=== PATIENT | male | born 1980 | race Caucasian/White ===

== ENCOUNTER 2023-11-24 01:42 | Inpatient (IN) | payer MEDICARE, OTHER, SELFPAY ==
[2023-11-23 17:51] VITALS: BP 123/86
[2023-11-23 18:00] VITALS: BP 135/92
[2023-11-23 19:00] VITALS: BP 117/85
[2023-11-23 19:03] LABS: % Basophils 0.3 % (0-2); % Immature Granulocytes 0.5 % (0-0.5); % Lymphocytes 4.4 % (20.5-51.1); % Monocytes 3.6 % (1.7-9.3); % Neutrophils 91.2 % (42.2-75.2); Absolute Lymphocytes 0.3 10^3/uL (1.2-3.4); Absolute Monocytes 0.3 10^3/uL (0.1-0.6); Hematocrit 30.4 % (39.0-52.0); Hemoglobin 10.3 g/dL (13.0-18.0); Mean Corp Hgb Conc. 33.9 g/dL (33.0-37.0); Mean Corpuscular Hgb 26.4 pg (27.0-31.0); Mean Corpuscular Volume 77.9 fL (80.0-94.0); Mean Platelet Volume 9.4 fL (7.4-10.4); Nucleated Red Blood Cells % 0 % (-); Platelet Count 271 10^3/uL (130-400); Red Cell Dist. Width 17.5 % (11.5-14.5); White Blood Cell Count 7.7 10^3/uL (4.8-10.8)
[2023-11-23 19:16] LABS: ALT (SGPT) 12 U/L (0-50); AST (SGOT) 18 U/L (17-59); Albumin 3.9 g/dl (3.5-5.0); Alkaline Phosphatase 59 U/L (38-126); Blood Urea Nitrogen 32 mg/dl (9-20); Calcium 8.9 mg/dl (8.4-10.2); Carbon Dioxide 27 mmol/L (22-30); Chloride 105 mmol/L (98-107); Glucose 134 mg/dl (70-99); Lipase 117 U/L (23-300); Potassium 3.9 mmol/L (3.5-5.1); Sodium 140 mmol/L (135-145); Total Bilirubin 0.9 mg/dl (0.2-1.3); Total Protein 7.9 g/dl (6.3-8.2); eGFR > 60.00
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
[2023-11-23] MEDS: ZOFRAN 4 MG IV ×2 (19:42→22:39)
[2023-11-23] MEDS: DILAUDID 1 MG IV ×2 (19:42→23:15)
[2023-11-23] MEDS: NSS 1000 IV ×2 (19:44→23:16)
[2023-11-23 20:00] VITALS: BP 117/84
[2023-11-23 20:38] LABS: Creatine Phosphokinase < 20 U/L (55-170)
[2023-11-23] MEDS: ZOSYN 50 IV (23:16)
[2023-11-23 23:30] LABS: Urine Albumin 2+ (Neg - Trace); Urine Bilirubin Negative (Negative); Urine Color Amber; Urine Glucose Negative (Negative); Urine Ketone Trace (Negative); Urine Leukocyte 2+ (Negative); Urine Nitrite Negative (Negative); Urine Occult Blood 4+ (Negative); Urine Urobilinogen Negative (Neg - 1+)
[2023-11-23 23:41] VITALS: BP 125/80
[2023-11-23 23:56] LABS: Urine Character Mucus (Clear)
[2023-11-23 23:59] LABS: Urine Amorphous Seen; Urine Bacteria Many (Negative); Urine Mucus Many; Urine Squamous Cell >30 /LPF (Few); Urine Triple Phosphate Crystal Seen; Urine White Cell >100 /HPF (0-5)
[2023-11-24] VITALS (8 sets, daily range): BP systolic 86–116; BP diastolic 48–76; BMI 18.9
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
[2023-11-24] MEDS: LR 1000 IV ×3 (03:01→16:59)
[2023-11-24] MEDS: DILAUDID 1 MG IV ×2 (03:35→08:44)
[2023-11-24] MEDS: ZOSYN 50 IV (03:55)
[2023-11-24 06:37] LABS: Hematocrit 25.2 % (39.0-52.0); Mean Corp Hgb Conc. 32.1 g/dL (33.0-37.0); Mean Corpuscular Hgb 26.1 pg (27.0-31.0); Mean Corpuscular Volume 81.3 fL (80.0-94.0); Mean Platelet Volume 9.5 fL (7.4-10.4); Platelet Count 225 10^3/uL (130-400); Red Cell Dist. Width 17.7 % (11.5-14.5); White Blood Cell Count 5.4 10^3/uL (4.8-10.8)
[2023-11-24 06:54] LABS: Hemoglobin 8.1 g/dL (13.0-18.0)
[2023-11-24 07:03] LABS: Blood Urea Nitrogen 30 mg/dl (9-20); Carbon Dioxide 24 mmol/L (22-30); Chloride 107 mmol/L (98-107); Estimated Creatinine Clearance 81 ml/min; Glucose 95 mg/dl (70-99); Potassium 3.6 mmol/L (3.5-5.1); Sodium 140 mmol/L (135-145); eGFR > 60.00
[2023-11-24] MEDS: PAXIL PO ×2 (08:29→09:39)
[2023-11-24] MEDS: SENOKOT PO ×2 (08:29→09:39)
[2023-11-24] MEDS: DOLOPHINE PO (08:29)
[2023-11-24] MEDS: VALIUM PO (08:30)
[2023-11-24] MEDS: MIRALAX PO ×2 (08:30→09:39)
[2023-11-24] MEDS: LIORESAL PO (08:30)
[2023-11-24] MEDS: COMPAZINE 5 MG IV (08:43)
[2023-11-24] MEDS: DOLOPHINE 20 MG PO ×3 (09:38→21:51)
[2023-11-24] MEDS: VALIUM 5 MG PO ×2 (09:38→20:16)
[2023-11-24] MEDS: LIORESAL 20 MG PO ×3 (09:39→21:51)
--- NOTE | 2023-11-24 09:41 | CM ---
Pt lives with his mother in a two story home with a ramp to enter. Pt has first floor set up. Pt has hospital bed with a trapeze, an electric wc, sliding board for transfers. Pt is able to get into wc independently, but needs assistance from
mother with lower body bathing and dressing. Pt has history of [facility] for homecare services and has been in [facility] in the past. Patient states that his mother is his primary caregiver and that he is open to going home with
[facility]. Patient PCP is Dr. Zaragoza and he uses the [facility] in [place]. Patient plan is to return home with family supports. CM will continue to follow for discharge planning needs.
Plan; home with MARCELINA; [facility] for referral and family supports; pending functional assessments.
--- NOTE | 2023-11-24 09:48 | W.PN.HOSP.TC ---
Today's Communication/Plan
-
advance diet as tolerated
cont aggressive bowel regimen
Assessment / Plan
Assessment / Plan
pt is a 43 year old male
Intractable N/V--Likely secondary to UTI +/- proctitis and constipation--Continue supportive care with IVFs, antiemetics, pain control, etc.
�
UTI--unlikely with urostomy AND squamous cells of > 30 on UA (i. e. not clean catch)--CT scan shows evidence of inflammatory changes throughout tract--IV abx with Zosyn for now to cover potential GI source as well--Follow urine culture
results--Routine ostomy care
Proctitis/stercoral colitis/Chronic Constipation/Colonic Inertia--Patient chronically dependent upon manual disimpaction--Disimpacted in the ED for small - moderate amount of stool--CRS disimpacted again this AM, apprec input--Has failed bowel
regimens in the past (Specifically, stool softeners only serve to make disimpaction more difficult)--IV abx with Zosyn as noted above for evidence of proctitis--Bowel regimen with MiraLax, Senna, etc--Follow for clinical results.
Chronic Pain Syndrome with Chronic Opioid Dependence (makes bowels more problematic)--Continue chronic pain med regimen without changes
Leukemia (CML per pt--sees onc at [facility])/Anemia of Chronic Disease--Initially dx about 3 years ago--Patient states that he has been treated solely with desatinib since then---Continue usual medication--Cell counts appear stable--HGB drop from 10 to 8
with hydration
DVT Prophylaxis:� Lovenox
Code Status:� Full
Anticipated Discharge: 24 - 48 hours
Subjective/Interval History
-
Date of Service: November 24, 2023
pt afraid to eat/drink due to n/v since Tuesday
Objective Data
-
Labs:
Laboratory Results
11/24/23
06:06
WBC 5.4
Hgb 8.1 L D
Hct 25.2 L
Plt Count 225
Sodium 140
Potassium 3.6
Chloride 107
Carbon Dioxide 24
BUN 30 H
Creatinine 1.0
Glucose 95
Calcium 8.0 L
Vital Signs:
max temp for 24 hours
11/23/23
17:51
Temp 99.7 F
Vital Signs
Temp Pulse Resp BP Pulse Ox
98.1 F 86 16 104/67 100
11/24/23 07:00 11/24/23 07:00 11/24/23 07:00 11/24/23 07:00 11/24/23 07:00
I&O
11/23/23 11/24/23 11/25/23
06:59 06:59 06:59
Intake Total 1120 / 1120
Output Total 600 / 600
Balance 520 / 520
Review of Systems
-
All other systems: Reviewed and negative
Physical Exam
-
General: Appears Chronically Ill
HEENT: Normocephalic and Atraumatic
Respiratory: Clear to Auscultation; Negative Wheezes or Rhonchi
Cardiac: Regular Rhythm and S1/S2; Negative Murmur
GI: Soft, Nontender, Nondistended and Normal Bowel Sounds
Genito-urinary: Other (urostomy tube)
Musculoskeletal: No Clubbing, No Cyanosis, No Edema and Other (chronic bilateral LE contractures)
Skin: Warm
Neuro: Awake
[2023-11-24] MEDS: ZOSYN 100 IV ×3 (11:28→23:49)
[2023-11-24] MEDS: SENOKOT 17.1999999999999993 MG PO ×2 (11:35→21:52)
[2023-11-24] MEDS: MIRALAX 17 GRAMS PO (11:35)
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
[2023-11-24] MEDS: LOVENOX 40 MG SC (17:00)
[2023-11-25] VITALS (12 sets, daily range): BP systolic 82–120; BP diastolic 48–74
--- NOTE | 2023-11-25 00:11 | PTCARENOTE ---
2300 vitals, pt BP 88/48 automatic. 86/54 manual. Recheck blood pressure an hour later, 86/51 automatic. Patient asymptomatic. Notified SUGAR SAMPLER. No new orders at this time. Pt resting comfortably in bed with call gil within reach.
[2023-11-25] MEDS: LR 1000 IV (00:53)
[2023-11-25] MEDS: ZOSYN 100 IV ×4 (05:40→23:54)
[2023-11-25 06:02] LABS: Hematocrit 22.7 % (39.0-52.0); Hemoglobin 7.3 g/dL (13.0-18.0); Mean Corp Hgb Conc. 32.2 g/dL (33.0-37.0); Mean Corpuscular Hgb 26.4 pg (27.0-31.0); Mean Corpuscular Volume 82.2 fL (80.0-94.0); Mean Platelet Volume 9.6 fL (7.4-10.4); Platelet Count 154 10^3/uL (130-400); Red Blood Cell Count 2.76 10^6/uL (4.70-6.10); Red Cell Dist. Width 17.7 % (11.5-14.5); White Blood Cell Count 4.1 10^3/uL (4.8-10.8)
[2023-11-25 06:26] LABS: Blood Urea Nitrogen 21 mg/dl (9-20); Calcium 7.5 mg/dl (8.4-10.2); Carbon Dioxide 23 mmol/L (22-30); Chloride 105 mmol/L (98-107); Estimated Creatinine Clearance 81 ml/min; Glucose 77 mg/dl (70-99); Magnesium 1.6 mg/dl (1.6-2.3); Potassium 3.3 mmol/L (3.5-5.1); Sodium 138 mmol/L (135-145); eGFR > 60.00
[2023-11-25] MEDS: MIRALAX 17 GRAMS PO (08:44)
[2023-11-25] MEDS: DOLOPHINE 20 MG PO (08:44)
[2023-11-25] MEDS: VALIUM 5 MG PO (08:45)
[2023-11-25] MEDS: LIORESAL 20 MG PO ×2 (08:45→21:49)
[2023-11-25] MEDS: PAXIL PO (09:01)
--- NOTE | 2023-11-25 09:16 | CM ---
Addendum entered by Jennifer Shukla 11/25/23 09:25:
referral to [email or web address] for follow up at discharge.
Original Note:
Patient seen at bedside, patient for transfusion per physician. Patient plan is to return home when medically stable and would like to have [facility]. CM will send referral, pending physician request. CM will continue to follow for discharge
planning needs.
Plan; home with VN; requesting [facility] if needed.
--- NOTE | 2023-11-25 09:24 | W.PN.HOSP.TC ---
Today's Communication/Plan
-
transfuse 2 units pRBC
replete K
d/c planning? Endpoint?
apprec GI/CRS
Assessment / Plan
Assessment / Plan
pt is a 43 year old male
Intractable N/V--Likely secondary to UTI +/- proctitis and constipation- antiemetics, pain control, etc.--tolerating diet
anemia of chronic disease--due to combination of CML leukemia and dilution--IVF stopped--transfuse 2 units pRBC
hypokalemia -- replete
�
UTI--unlikely with urostomy AND squamous cells of > 30 on UA (i. e. not clean catch)--CT scan shows evidence of inflammatory changes throughout tract--IV abx with Zosyn for now to cover potential GI source as well--Follow urine culture
results--Routine ostomy care
Proctitis/stercoral colitis/Chronic Constipation/Colonic Inertia--Patient chronically dependent upon manual disimpaction--Disimpacted in the ED for small - moderate amount of stool--CRS disimpacted again, apprec input--Has failed bowel regimens in
the past (Specifically, stool softeners only serve to make disimpaction more difficult)--IV abx with Zosyn as noted above for evidence of proctitis--Bowel regimen with MiraLax, Senna, etc--Follow for clinical results.
Chronic Pain Syndrome with Chronic Opioid Dependence (makes bowels more problematic)--Continue chronic pain med regimen without changes
Leukemia (CML per pt--sees onc at [facility])/Anemia of Chronic Disease--Initially dx about 3 years ago--Patient states that he has been treated solely with desatinib since then---Continue usual medication-
DVT Prophylaxis:� Lovenox
Code Status:� Full
Anticipated Discharge: 24 - 48 hours
Subjective/Interval History
-
Date of Service: November 25, 2023
pt stating that bowel regimen usually doesn't work and makes him feel sick which is why he needs disimpaction
Objective Data
-
Labs:
Laboratory Results
11/25/23
05:46
WBC 4.1 L
Hgb 7.3 L
Hct 22.7 L
Plt Count 154 D
Sodium 138
Potassium 3.3 L
Chloride 105
Carbon Dioxide 23
BUN 21 H
Creatinine 1.0
Glucose 77
Calcium 7.5 L
Vital Signs:
max temp for 24 hours
11/24/23
15:36
Temp 98.7 F
Vital Signs
Temp Pulse Resp BP Pulse Ox
97.8 F 69 18 87/51 97
11/25/23 08:12 11/25/23 08:12 11/25/23 08:12 11/25/23 08:12 11/25/23 08:12
I&O
11/24/23 11/25/23 11/26/23
06:59 06:59 06:59
Intake Total 1120 / 1120 3720 / 3720
Output Total 600 / 600 1475 / 1475
Balance 520 / 520 2245 / 2245
Review of Systems
-
All other systems: Reviewed and negative
Physical Exam
-
General: Well Developed, Well Nourished and No Apparent Distress
HEENT: Normocephalic and Atraumatic
Respiratory: Clear to Auscultation; Negative Wheezes or Rhonchi
Cardiac: Regular Rhythm and S1/S2; Negative Murmur
GI: Soft, Nontender, Nondistended and Normal Bowel Sounds
Musculoskeletal: No Clubbing, No Cyanosis, No Edema and Other (paraplegia)
Neuro: Awake
[2023-11-25] MEDS: KCL ELIXIR 40 MEQ PO (09:53)
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
[2023-11-25] MEDS: LR IV (09:59)
[2023-11-25] MEDS: COMPAZINE 5 MG IV ×2 (10:02→19:50)
--- NOTE | 2023-11-25 11:03 | PN.CDI ---
CDI
- -
CDI:
Physician Documentation Request
Admit Date: 11/24/23 01:42
Dear Doctor Kartik,
Please review the following and provide your response in the progress notes.
Clinical Indicators:
Height: 5 ft 10 inches
Weight: 131
BMI: 18.9
If possible, please provide an associated diagnosis related to the abnormal BMI, such as:
BMI < or = to 19
Underweight
Weight Loss
Cachectic
Anorexia
- BMI is not significant
- Other
Use of terms such as suspected, likely, concern for, or probable (associated with a specific diagnosis that is being evaluated, monitored, or treated as if it exists) are acceptable and can be coded in the inpatient setting, when documented at the
time of discharge.
Thank you,
Cassidy Ruth RN, BSN
CDI Specialist
tiger text
Please use your independent medical judgment in providing your response.
[2023-11-25] MEDS: ZANAFLEX 4 MG PO (13:15)
[2023-11-25] MEDS: LOVENOX SC (17:10)
[2023-11-25] MEDS: DOLOPHINE PO ×2 (17:15→21:47)
[2023-11-25] MEDS: LIORESAL PO (17:15)
--- NOTE | 2023-11-25 17:50 | W.PN.UPDATE ---
Update Note
Progress Note Update
I was called by patient's nurse that patient is becoming more drowsy and appearing more pale. Per patient's nurse, most recent systolic blood pressure in the 90s. Blood transfusion was delayed as there was mislabeling/nonlabeling when blood was
drawn by IV team, nurse called them again, and blood is expected to be given now.
On exam, patient is able to communicate fine, has good insight and judgment, explained to me what is going on, appears to be oriented, patient does appear somewhat pale.
I confirmed with nurse that blood will be given now as it is coming up from the lab right now.
Transfer to IMU in case blood pressure drops further and in case patient needs pressors; if stable can transfer back to medsurg/telemetry tomorrow.
[2023-11-25] MEDS: VALIUM PO ×2 (19:45→21:49)
[2023-11-25] MEDS: SENOKOT 17.1999999999999993 MG PO (21:49)
[2023-11-26] MEDS: DOLOPHINE 20 MG PO ×3 (00:14→22:42)
--- NOTE | 2023-11-26 01:49 | PTCARENOTE ---
Orders placed for IMU transfer prior to shift change due to delay in transfusion of blood products. Pt received 2 units of PRBC on this shift, tolerated will, reports significant improvement in overall wellbeing and mentation. Pt appears more awake
and alert, talking and joking with staff. Blood pressure stable thus far, ranging 100-120's systolic. D/w covering ORCHESTRATOR, upgrade order d/c'd to be replaced by a telemetry order, placed on tele.
[2023-11-26] MEDS: DILAUDID 1 MG IV ×2 (02:39→21:31)
[2023-11-26 03:05] VITALS: BP 126/74
[2023-11-26 04:11] VITALS: BP 126/74
[2023-11-26 05:47] LABS: Glucose - Point of Care 84 mg/dl (70-99)
[2023-11-26 05:55] LABS: Mean Corp Hgb Conc. 32.9 g/dL (33.0-37.0); Mean Corpuscular Hgb 27.4 pg (27.0-31.0); Mean Corpuscular Volume 83.1 fL (80.0-94.0); Mean Platelet Volume 9.9 fL (7.4-10.4); Platelet Count 174 10^3/uL (130-400); Red Blood Cell Count 4.09 10^6/uL (4.70-6.10); Red Cell Dist. Width 17.2 % (11.5-14.5); White Blood Cell Count 5.8 10^3/uL (4.8-10.8)
[2023-11-26 06:04] LABS: Hemoglobin 11.2 g/dL (13.0-18.0)
[2023-11-26] MEDS: NSS 500 IV (06:22)
[2023-11-26 06:26] LABS: ALT (SGPT) < 10 U/L (0-50); AST (SGOT) 18 U/L (17-59); Alkaline Phosphatase 39 U/L (38-126); Blood Urea Nitrogen 14 mg/dl (9-20); Calcium 7.6 mg/dl (8.4-10.2); Carbon Dioxide 27 mmol/L (22-30); Chloride 108 mmol/L (98-107); Estimated Creatinine Clearance 74 ml/min; Glucose 90 mg/dl (70-99); Magnesium 1.7 mg/dl (1.6-2.3); Potassium 3.4 mmol/L (3.5-5.1); Sodium 137 mmol/L (135-145); Total Bilirubin 1.5 mg/dl (0.2-1.3); Total Protein 6.1 g/dl (6.3-8.2); eGFR > 60.00
--- NOTE | 2023-11-26 06:27 | PTCARENOTE ---
Pt on the call gil, states he 'doesn't feel right'. When asked to elaborate, pt reports lightheadedness and mild HILTON. Pt appears more pale than previously noted, speaks slow and with his eyes closed, visibly uncomfortable, denies nausea, pain, SOB
or CP. BP 136/81, pulse ox 98% on RA, HR bradycardic at 55 on the monitor. Accuchek 84. D/w covering CONTENT ANALYST who responded immediately bedside to assess pt. 500cc bolus ordered and given, see DEC. Hgb resulted 11.2 after 2 units PRBC last PM.
--- NOTE | 2023-11-26 06:40 | W.PN.UPDATE ---
Update Note
Progress Note Update
Patient complained of dizziness, SBP in 90s, hr between 47- 60s. One time bolus of 500cc of normal saline. Will start the patient on maintenance IVF. Morning labs reviewed and electrolytes repleted as needed.
[2023-11-26 07:05] VITALS: BP 111/68
[2023-11-26] MEDS: CALCIUM GLUCONATE 100 IV (07:35)
[2023-11-26] MEDS: COMPAZINE 5 MG IV (08:34)
--- NOTE | 2023-11-26 08:39 | PTCARENOTE ---
pt refusing to take any oral meds due to feeling nausea and generally uwell. Compazine given Iv. Pt took tele monitor off and id refusing it to be put back on. Dr. Gary notified.
[2023-11-26] MEDS: ZOSYN 100 IV ×3 (08:50→17:21)
[2023-11-26] MEDS: VALIUM PO (10:01)
[2023-11-26] MEDS: MIRALAX PO (10:01)
[2023-11-26] MEDS: LIORESAL PO (10:01)
[2023-11-26] MEDS: NSS IV (10:01)
[2023-11-26] MEDS: PAXIL PO (10:01)
[2023-11-26] MEDS: DOLOPHINE PO (10:01)
--- NOTE | 2023-11-26 10:02 | PTCARENOTE ---
pt still refusing meds due to nausea even after compazine.
--- NOTE | 2023-11-26 10:26 | W.PN.HOSP.TC ---
Today's Communication/Plan
-
Eval anemia further - hemolysis panel, Hemetest stools
CW Abx
CW symptomatic tx for nausea today
Assessment / Plan
Assessment / Plan
pt is a 43 year old male
Intractable N/V--Likely secondary proctitis and constipation- antiemetics, pain control, etc.--was tolerating diet but nauseous this am. Afeb , no leukocytosis ,LFT apart from mild Bili elevation normal , and abdo benign.
CW symptomatic tx
CW zosyn for proctitis
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 Check Hemoccult testing of the stools. Check a reticulocyte count. Check hemolysis labs.
hypokalemia -- replete
�
UTI--unlikely with urostomy AND squamous cells of > 30 on UA (i. e. not clean catch)--CT scan shows evidence of inflammatory changes throughout tract--IV abx with Zosyn for now to cover potential GI source as well-- urine culture results shows
contamination--Routine ostomy care
Proctitis/stercoral colitis/Chronic Constipation/Colonic Inertia--Patient chronically dependent upon manual disimpaction--Disimpacted in the ED for small - moderate amount of stool--CRS disimpacted again, apprec input--Has failed bowel regimens in
the past (Specifically, stool softeners only serve to make disimpaction more difficult)--IV abx with Zosyn as noted above for evidence of proctitis--Bowel regimen with MiraLax, Senna, etc--Follow for clinical results.
Chronic Pain Syndrome with Chronic Opioid Dependence (makes bowels more problematic)--Continue chronic pain med regimen without changes
Leukemia (CML per pt--sees onc at [facility])/Anemia of Chronic Disease--Initially dx about 3 years ago--Patient states that he has been treated solely with desatinib since then---Continue usual medication
DVT Prophylaxis:� Lovenox
Code Status:� Full
Anticipated Discharge: 24 - 48 hours
Subjective/Interval History
-
Date of Service: November 26, 2023
Was not feeling well yesterday. He was feeling in generally' crappy'. He was also feeling lightheaded. He feels improved from that feeling after transfusion.
This morning is nauseous.
He did not have any bloody bowel movements yesterday. He states he was anemic in the past requiring transfusion but that was remote past. Denies history of GI bleeds.
He had something to eat yesterday with today's feeling nauseous. No abdominal pain. No bowel movement yet.
No fever or chills.
No shortness of breath.
Objective Data
-
Labs:
Laboratory Results
11/26/23
05:38
WBC 5.8
Hgb 11.2 L D
Hct 34.0 L
Plt Count 174
Sodium 137
Potassium 3.4 L
Chloride 108 H
Carbon Dioxide 27
BUN 14
Creatinine 1.1
Glucose 90
Calcium 7.6 L
Total Bilirubin 1.5 H
AST 18
ALT < 10
Alkaline Phosphatase 39
Vital Signs:
Vital Signs
Temp Pulse Resp BP Pulse Ox
98.7 F 58 12 111/68 97
11/26/23 07:05 11/26/23 07:05 11/26/23 07:05 11/26/23 07:05 11/26/23 07:05
I&O
11/25/23 11/26/23 11/27/23
06:59 06:59 06:59
Intake Total 3720 / 3720 1100 / 1100
Output Total 1475 / 1475 1450 / 1450
Balance 2245 / 2245 -350 / -350
Review of Systems
-
Constitutional: Denies Chills
EENT: Denies Sore Throat
Respiratory: Denies Cough
Physical Exam
-
General: No Apparent Distress
HEENT: Moist Mucous Membranes
Respiratory: Clear to Auscultation
Cardiac: Regular Rhythm and S1/S2; Negative Tachycardic
GI: Soft, Nontender, Nondistended, Normal Bowel Sounds and Ostomy
Neuro: AO x 3
Psych: Calm
Data Reviewed
-
Labs: Labs Reviewed by me
[2023-11-26 11:05] VITALS: BP 129/73
[2023-11-26 11:20] LABS: Iron 143 ug/dl (49-181); LDH 200 U/L (120-246)
[2023-11-26 11:46] LABS: Percent Saturation 71 % (20-50); Total Iron Binding Capacity 199 ug/dl (261-462)
[2023-11-26 13:04] LABS: Reticulocyte Count 2.9 % (0.4-2.8)
[2023-11-26 15:05] VITALS: BP 110/68
[2023-11-26] MEDS: LOVENOX 40 MG SC (17:21)
[2023-11-26] MEDS: LIORESAL 20 MG PO ×2 (17:21→21:06)
[2023-11-26] MEDS: VALIUM 5 MG PO (20:26)
[2023-11-26] MEDS: SENOKOT 17.1999999999999993 MG PO (21:05)
[2023-11-26 23:20] VITALS: BP 114/67
[2023-11-27] MEDS: ZOSYN 100 IV ×2 (01:00→05:24)
[2023-11-27] MEDS: NSS 1000 IV (02:48)
[2023-11-27] MEDS: DILAUDID 1 MG IV (04:13)
[2023-11-27 07:05] VITALS: BP 118/74
[2023-11-27] MEDS: DOLOPHINE 20 MG PO ×2 (08:05→17:09)
[2023-11-27] MEDS: VALIUM 5 MG PO (08:05)
[2023-11-27] MEDS: PAXIL 20 MG PO (08:05)
[2023-11-27] MEDS: MIRALAX 17 GRAMS PO (08:05)
[2023-11-27] MEDS: LIORESAL 20 MG PO ×2 (08:05→17:09)
[2023-11-27 08:46] LABS: Hematocrit 33.1 % (39.0-52.0); Hemoglobin 10.9 g/dL (13.0-18.0); Mean Corp Hgb Conc. 32.9 g/dL (33.0-37.0); Mean Corpuscular Hgb 27.3 pg (27.0-31.0); Mean Corpuscular Volume 82.8 fL (80.0-94.0); Mean Platelet Volume 9.8 fL (7.4-10.4); Platelet Count 163 10^3/uL (130-400); Red Cell Dist. Width 17.7 % (11.5-14.5); White Blood Cell Count 4.9 10^3/uL (4.8-10.8)
[2023-11-27 09:07] LABS: ALT (SGPT) < 10 U/L (0-50); AST (SGOT) 14 U/L (17-59); Albumin 2.6 g/dl (3.5-5.0); Alkaline Phosphatase 36 U/L (38-126); Blood Urea Nitrogen 10 mg/dl (9-20); Calcium 7.1 mg/dl (8.4-10.2); Carbon Dioxide 26 mmol/L (22-30); Chloride 109 mmol/L (98-107); Estimated Creatinine Clearance 81 ml/min; Glucose 76 mg/dl (70-99); Potassium 3.2 mmol/L (3.5-5.1); Sodium 138 mmol/L (135-145); Total Bilirubin 1.1 mg/dl (0.2-1.3); Total Protein 5.4 g/dl (6.3-8.2); eGFR > 60.00
--- NOTE | 2023-11-27 10:39 | W.PN.HOSP.TC ---
Today's Communication/Plan
-
d/c
Assessment / Plan
Assessment / Plan
pt is a 43 year old male
Intractable N/V--Likely secondary proctitis and constipation- antiemetics, pain control, etc.--tolerating diet--Afeb , no leukocytosis ,LFT apart from mild Bili elevation normal zosyn to augmentin
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 Check Hemoccult testing of the stools. Check a reticulocyte count. Check hemolysis labs--will need to
follow up with outpt heme onc
hypokalemia -- replete
�
UTI--unlikely with urostomy AND squamous cells of > 30 on UA (i. e. not clean catch)--CT scan shows evidence of inflammatory changes throughout tract--IV abx with Zosyn for now to cover potential GI source as well-- urine culture results shows
contamination--Routine ostomy care
Proctitis/stercoral colitis/Chronic Constipation/Colonic Inertia--Patient chronically dependent upon manual disimpaction--Disimpacted in the ED for small - moderate amount of stool--CRS disimpacted again, apprec input--Has failed bowel regimens in
the past (Specifically, stool softeners only serve to make disimpaction more difficult)--IV abx with Zosyn to augmentin--Bowel regimen with MiraLax, Senna, etc
Chronic Pain Syndrome with Chronic Opioid Dependence (makes bowels more problematic)--Continue chronic pain med regimen without changes
Leukemia (CML per pt--sees onc at [facility])/Anemia of Chronic Disease--Initially dx about 3 years ago--Patient states that he has been treated solely with desatinib since then (can contribute to anemia?)---Continue usual medication
BMI is not accurate or significant with paraplegia and leg contractures as he is NOT 5' 10' tall
DVT Prophylaxis:� Lovenox
Code Status:� Full
Anticipated Discharge: Today
Subjective/Interval History
-
Date of Service: November 27, 2023
pt pooping without suppository--thinks he is staying until Tuesday
Objective Data
-
Labs:
Laboratory Results
11/27/23
07:59
WBC 4.9
Hgb 10.9 L
Hct 33.1 L
Plt Count 163
Sodium 138
Potassium 3.2 L
Chloride 109 H
Carbon Dioxide 26
BUN 10
Creatinine 1.0
Glucose 76
Calcium 7.1 L
Total Bilirubin 1.1
AST 14 L
ALT < 10
Alkaline Phosphatase 36 L
Vital Signs:
max temp for 24 hours
11/26/23
15:05
Temp 98.7 F
Vital Signs
Temp Pulse Resp BP Pulse Ox
97.7 F 70 16 118/74 97
11/27/23 07:05 11/27/23 07:05 11/27/23 07:05 11/27/23 07:05 11/27/23 07:05
I&O
11/26/23 11/27/23 11/28/23
06:59 06:59 06:59
Intake Total 1100 / 1100 3620 / 3620
Output Total 1450 / 1450 1900 / 1900
Balance -350 / -350 1720 / 1720
Review of Systems
-
All other systems: Reviewed and negative
Physical Exam
-
General: Well Developed, Well Nourished and No Apparent Distress
HEENT: Normocephalic and Atraumatic; Negative Oxygen
Respiratory: Clear to Auscultation; Negative Wheezes or Rhonchi
Cardiac: Regular Rhythm and S1/S2; Negative Murmur
GI: Soft, Nontender, Nondistended and Normal Bowel Sounds
Musculoskeletal: No Clubbing, No Cyanosis, No Edema and Other (legs contracted--not 5'10' as documented--with contractures possibly 5'6')
Neuro: Awake
[2023-11-27] MEDS: AUGMENTIN 500 MG/125 MG 1 TABLET PO (12:12)
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
[2023-11-27] MEDS: COMPAZINE 5 MG IV (13:32)
--- NOTE | 2023-11-27 13:35 | CM ---
Patient has been cleared for discharge today, patient to return to home with his mother, nurse outreach case manager spoke with patient's mother and she is working till 2pm, so transport will be set up after 2pm, patient is agreeable to [facility] visiting Nurses,
referral sent to [facility].
Home by ambulance
[facility]
[phone]
[2023-11-27 15:00] VITALS: BP 123/75
[2023-11-27] MEDS: LOVENOX 40 MG SC (17:09)
[2023-11-28 19:57] LABS: Haptoglobin 81 mg/dL (30-200)
== END 2023-11-27 19:22 | disposition home health service (06) | DRG 394 ==
LOC: 2 NORTH 01:42
PROVIDERS: Emergency Medicine; Internal Medicine; Physician Assistant; ADMITTING PHYSICIAN Hospitalist; ATTENDING PHYSICIAN Internal Medicine; CONSULT PHYSICIAN Internal Medicine Gastroenterology; CONSULT PHYSICIAN Surgery; EMERGENCY PHYSICIAN Emergency Medicine
PROC: 30233N1 Transfusion of Nonautologous Red Blood Cells into Peripheral Vein, Percutaneous Approach (ICD-10-PCS; 2023-11-25)
DX: K62.89 Other specified diseases of anus and rectum (principal); C92.10 Chronic myeloid leukemia, BCR/ABL-positive, not having achieved remission; G82.20 Paraplegia, unspecified; N39.0 Urinary tract infection, site not specified; F11.20 Opioid dependence, uncomplicated; N13.6 Pyonephrosis; K56.41 Fecal impaction; K52.89 Other specified noninfective gastroenteritis and colitis; E87.6 Hypokalemia; G89.4 Chronic pain syndrome; D63.0 Anemia in neoplastic disease
CPT/HCPCS: 74177; 80048; 80053; 81003; 81015; 82550; 82728; 82962; 83010; 83540; 83550; 83615; 83690; 83735; 85025; 85027; 85045; 86850; 86900; 86901; 86920; 87086; 96361; 96365; 96375; 96376; 99285; P9016; Q9967

== ENCOUNTER 2024-01-31 14:25 | Observation (INO) | payer MEDICARE, OTHER, SELFPAY ==
[2024-01-31] VITALS (31 sets, daily range): BP systolic 90–140; BP diastolic 48–98; BMI 19.5
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
[2024-01-31] MEDS: NSS 1000 IV (07:00)
[2024-01-31] MEDS: ZOFRAN 4 MG IV ×3 (07:01→20:47)
[2024-01-31 07:12] LABS: % Basophils 0.4 % (0-2); % Eosinophils 0.1 % (0-6); % Immature Granulocytes 0.4 % (0-0.5); % Monocytes 4.1 % (1.7-9.3); Absolute Lymphocytes 0.6 10^3/uL (1.2-3.4); Absolute Monocytes 0.4 10^3/uL (0.1-0.6); Absolute Neutrophils 8.8 10^3/uL (1.4-6.5); Hematocrit 33.5 % (39.0-52.0); Hemoglobin 11.5 g/dL (13.0-18.0); Mean Corp Hgb Conc. 34.3 g/dL (33.0-37.0); Mean Corpuscular Volume 81.5 fL (80.0-94.0); Mean Platelet Volume 9.7 fL (7.4-10.4); Nucleated Red Blood Cells % 0 % (-); Platelet Count 253 10^3/uL (130-400); Red Blood Cell Count 4.11 10^6/uL (4.70-6.10); Red Cell Dist. Width 16.9 % (11.5-14.5); White Blood Cell Count 9.9 10^3/uL (4.8-10.8)
[2024-01-31] MEDS: DILAUDID 2 MG IV ×3 (07:21→20:47)
[2024-01-31 07:30] LABS: ALT (SGPT) 13 U/L (0-50); AST (SGOT) 22 U/L (17-59); Albumin 4.5 g/dl (3.5-5.0); Alkaline Phosphatase 65 U/L (38-126); Blood Urea Nitrogen 30 mg/dl (9-20); Calcium 9.1 mg/dl (8.4-10.2); Carbon Dioxide 24 mmol/L (22-30); Chloride 108 mmol/L (98-107); Estimated Creatinine Clearance 93 ml/min; Glucose 137 mg/dl (70-99); Lipase 126 U/L (23-300); Potassium 3.9 mmol/L (3.5-5.1); Sodium 142 mmol/L (135-145); Total Bilirubin 1.5 mg/dl (0.2-1.3); Total Protein 8.4 g/dl (6.3-8.2); eGFR > 60.00
[2024-01-31] MEDS: RELISTOR 8 MG SC (12:06)
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
[2024-01-31] MEDS: DULCOLAX 10 MG RECTAL (15:40)
[2024-01-31] MEDS: COMPAZINE 10 MG IV (15:45)
--- NOTE | 2024-01-31 20:00 | W.PN.UPDATE ---
Update Note
Progress Note Update
1999 notified by nurse that pt unable to take po meds due to n/v
will change dilaudid to iv for now and increase compazine freq
[2024-01-31] MEDS: LIORESAL PO (20:19)
[2024-01-31] MEDS: DOLOPHINE PO (20:19)
[2024-01-31] MEDS: ZANAFLEX PO ×2 (20:21→22:57)
[2024-01-31] MEDS: LOVENOX 40 MG SC (20:46)
[2024-01-31] MEDS: VALIUM PO (21:02)
[2024-01-31] MEDS: PAXIL PO (21:02)
[2024-01-31] MEDS: LIORESAL 20 MG PO (22:57)
[2024-01-31] MEDS: DOLOPHINE 20 MG PO (22:57)
--- NOTE | 2024-01-31 23:44 | PTCARENOTE ---
Patient arrived from the ED via stretcher at approximately 1900. Patient pulled over from stretcher to bed w/ no event. Patient AAOx3, drowsy. VSS as documented. Assessment as documented. Patient oriented to room. Bed in lowest position. Call gil
within reach.
[2024-02-01] MEDS: ZANAFLEX 4 MG PO ×4 (00:27→21:06)
[2024-02-01 06:36] LABS: Hemoglobin 10.6 g/dL (13.0-18.0); Mean Corp Hgb Conc. 32.1 g/dL (33.0-37.0); Mean Corpuscular Hgb 27.6 pg (27.0-31.0); Mean Corpuscular Volume 85.9 fL (80.0-94.0); Mean Platelet Volume 9.8 fL (7.4-10.4); Platelet Count 246 10^3/uL (130-400); Red Blood Cell Count 3.84 10^6/uL (4.70-6.10); Red Cell Dist. Width 17.6 % (11.5-14.5); White Blood Cell Count 9.1 10^3/uL (4.8-10.8)
[2024-02-01 07:03] LABS: Blood Urea Nitrogen 40 mg/dl (9-20); Calcium 8.5 mg/dl (8.4-10.2); Carbon Dioxide 23 mmol/L (22-30); Chloride 108 mmol/L (98-107); Estimated Creatinine Clearance 70 ml/min; Glucose 129 mg/dl (70-99); Magnesium 2.1 mg/dl (1.6-2.3); Potassium 3.4 mmol/L (3.5-5.1); Sodium 141 mmol/L (135-145); eGFR > 60.00
[2024-02-01 07:40] VITALS: BP 111/78
[2024-02-01] MEDS: DILAUDID 2 MG IV (08:02)
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
[2024-02-01] MEDS: DOLOPHINE 20 MG PO ×3 (09:33→21:06)
[2024-02-01] MEDS: ZANAFLEX PO (09:33)
[2024-02-01] MEDS: KCL 40 MEQ PO (09:33)
[2024-02-01] MEDS: VALIUM 5 MG PO ×2 (09:34→20:28)
[2024-02-01] MEDS: PAXIL PO (09:34)
[2024-02-01] MEDS: MIRALAX 17 GRAMS PO (09:35)
[2024-02-01] MEDS: DULCOLAX 10 MG RECTAL (09:35)
[2024-02-01] MEDS: LIORESAL 20 MG PO ×3 (09:41→21:06)
[2024-02-01 15:50] VITALS: BP 90/59
--- NOTE | 2024-02-01 15:53 | CM ---
Reviewed the chart notes and spoke with the patient at the bedside. The patient is being admitted under observational status. The [facility] letter was provided and explained. The patient had no questions with regards to the letter.
The patient resides with his mother in a two story home with a portable ramp to enter. The patient resides on the first level. Patient has a hospital bed, trapeze, electric wheelchair, and sliding board. The patient has had [facility] in the past
and been to [facility] and [facility]. The patient confirmed her pharmacy of choice is the [facility]. CM continues to be available to patient/family and is monitoring medical plan for needs at discharge.
Plan: Discharge to home with no anticipated needs being identified at this time.
--- NOTE | 2024-02-01 16:00 | PTCARENOTE ---
Addendum entered by Araceli Rainse RN 02/01/24 18:46:
Repeat BP taken at 1800 78/48 RUE HR 102. Patient drowsy but states no complaints at this time. MD made aware, 500 ml NSS bolus ordered. MD made aware of cloudy nery urine with sediment output from urostomy, no new orders at this time.
Original Note:
Patient's BP at 1550 89/55, repeat 90/59 HR 70 in RUE. Patient states he 'typically runs low this time of day.' MD made aware of BP and of scheduled methadone, baclofen, and zanaflex due at 1600, no new orders at this time.
[2024-02-01] MEDS: LOVENOX 40 MG SC (17:13)
[2024-02-01] MEDS: NSS 500 IV (18:17)
[2024-02-01 19:33] VITALS: BP 88/56
[2024-02-01] MEDS: NSS 1000 IV (21:08)
[2024-02-01 23:44] VITALS: BP 101/75
[2024-02-02 05:52] LABS: Hematocrit 26.8 % (39.0-52.0); Hemoglobin 8.8 g/dL (13.0-18.0); Mean Corp Hgb Conc. 32.8 g/dL (33.0-37.0); Mean Corpuscular Hgb 27.9 pg (27.0-31.0); Mean Corpuscular Volume 85.1 fL (80.0-94.0); Mean Platelet Volume 9.5 fL (7.4-10.4); Platelet Count 164 10^3/uL (130-400); Red Blood Cell Count 3.15 10^6/uL (4.70-6.10); Red Cell Dist. Width 17.8 % (11.5-14.5); White Blood Cell Count 4.9 10^3/uL (4.8-10.8)
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
[2024-02-02 07:41] LABS: Blood Urea Nitrogen 30 mg/dl (9-20); Calcium 7.6 mg/dl (8.4-10.2); Carbon Dioxide 20 mmol/L (22-30); Chloride 111 mmol/L (98-107); Estimated Creatinine Clearance 93 ml/min; Glucose 92 mg/dl (70-99); Potassium 3.7 mmol/L (3.5-5.1); Sodium 135 mmol/L (135-145); eGFR > 60.00
[2024-02-02 07:52] VITALS: BP 95/58
[2024-02-02] MEDS: DOLOPHINE 20 MG PO ×2 (08:41→16:19)
[2024-02-02] MEDS: ZANAFLEX 4 MG PO ×2 (08:41→16:19)
[2024-02-02] MEDS: LIORESAL 20 MG PO ×2 (08:41→16:19)
[2024-02-02] MEDS: MIRALAX 17 GRAMS PO (08:41)
[2024-02-02] MEDS: VALIUM 5 MG PO (08:41)
[2024-02-02] MEDS: PAXIL 20 MG PO (08:42)
[2024-02-02] MEDS: DILAUDID 2 MG IV (08:42)
[2024-02-02] MEDS: DULCOLAX 10 MG RECTAL (08:42)
[2024-02-02] MEDS: TYLENOL 650 MG PO (08:51)
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
[2024-02-02] MEDS: FIORICET 2 TAB PO (10:26)
[2024-02-02] MEDS: COMPAZINE 10 MG IV (11:29)
--- NOTE | 2024-02-02 14:00 | PTCARENOTE ---
pt received prn tylenol this AM for headache. verbalized neck pain and per DEC assessment received prn dilaudid. see DEC for proper charting. pt also verbalizing nausea this AM, patient received prn compazine. pt continued to have headache. MD made
aware and acetaminophen/caffeine pill was given. pt stated that that seemed to help his headache. no concerns at this time. pt scheduled for ambulance pickup at 1630
--- NOTE | 2024-02-02 14:33 | CM ---
Reviewed the chart notes. The patient is being discharged to home today via ambulance. CM continues to be available to patient/family and is monitoring medical plan for needs at discharge.
Plan: Discharge to home today with no additional needs being identified at this time.
Plan: Discharge to home.
Medical and transport forms on chart.
[2024-02-02 15:07] VITALS: BP 103/54
== END 2024-02-02 16:31 | disposition home or self-care (01) ==
LOC: 2 NORTH 14:25
PROVIDERS: Physician Assistant Medical; ADMITTING PHYSICIAN Family Medicine; EMERGENCY PHYSICIAN Emergency Medicine; FAMILY PHYSICIAN Family Medicine
DX: K59.09 Other constipation (principal); R10.9 Unspecified abdominal pain; R11.2 Nausea with vomiting, unspecified; I95.9 Hypotension, unspecified; G89.4 Chronic pain syndrome; F11.20 Opioid dependence, uncomplicated; D63.8 Anemia in other chronic diseases classified elsewhere; C92.10 Chronic myeloid leukemia, BCR/ABL-positive, not having achieved remission; F32.A Depression, unspecified; K80.20 Calculus of gallbladder without cholecystitis without obstruction; N31.9 Neuromuscular dysfunction of bladder, unspecified; G82.20 Paraplegia, unspecified; Z98.1 Arthrodesis status; Z87.440 Personal history of urinary (tract) infections; Z88.1 Allergy status to other antibiotic agents
CPT/HCPCS: 74177; 80048; 80053; 83690; 83735; 85025; 85027; 93005; 96361; 96372; 96374; 96375; 96376; 99285; G0378; Q9967

== ENCOUNTER 2024-02-05 01:09 | Emergency (ER) | payer MEDICARE, OTHER, SELFPAY ==
[2024-02-05] VITALS (8 sets, daily range): BP systolic 109–131; BP diastolic 67–93
[2024-02-05 01:39] LABS: % Basophils 0.3 % (0-2); % Eosinophils 0.4 % (0-6); % Immature Granulocytes 0.3 % (0-0.5); % Lymphocytes 6.1 % (20.5-51.1); % Monocytes 4.8 % (1.7-9.3); % Neutrophils 88.1 % (42.2-75.2); Absolute Lymphocytes 0.5 10^3/uL (1.2-3.4); Absolute Monocytes 0.4 10^3/uL (0.1-0.6); Hematocrit 34.7 % (39.0-52.0); Hemoglobin 11.4 g/dL (13.0-18.0); Mean Corp Hgb Conc. 32.9 g/dL (33.0-37.0); Mean Corpuscular Hgb 27.8 pg (27.0-31.0); Mean Corpuscular Volume 84.6 fL (80.0-94.0); Mean Platelet Volume 9.1 fL (7.4-10.4); Nucleated Red Blood Cells % 0 % (-); Platelet Count 234 10^3/uL (130-400); Red Cell Dist. Width 17.4 % (11.5-14.5); White Blood Cell Count 7.9 10^3/uL (4.8-10.8)
[2024-02-05] MEDS: DILAUDID 1 MG IV (02:00)
[2024-02-05] MEDS: ZOFRAN 4 MG IV (02:00)
[2024-02-05] MEDS: NSS 1000 IV (02:01)
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
[2024-02-05 02:24] LABS: AST (SGOT) 20 U/L (17-59); Albumin 3.7 g/dl (3.5-5.0); Blood Urea Nitrogen 15 mg/dl (9-20); Carbon Dioxide 27 mmol/L (22-30); Chloride 106 mmol/L (98-107); Glucose 121 mg/dl (70-99); Total Bilirubin 0.9 mg/dl (0.2-1.3); Total Protein 6.8 g/dl (6.3-8.2); eGFR > 60.00
[2024-02-05 02:31] LABS: ALT (SGPT) 13 U/L (0-50); Alkaline Phosphatase 65 U/L (38-126); Calcium 8.9 mg/dl (8.4-10.2); Sodium 140 mmol/L (135-145)
[2024-02-05 02:52] LABS: Potassium 3.4 mmol/L (3.5-5.1)
[2024-02-05] MEDS: REGLAN 10 MG IV (03:47)
[2024-02-05] MEDS: DILAUDID 4 MG PO (05:27)
== END 2024-02-05 08:45 | disposition home or self-care (01) ==
LOC: EMR 01:09
PROVIDERS: EMERGENCY PHYSICIAN Emergency Medicine; FAMILY PHYSICIAN Family Medicine
DX: R11.2 Nausea with vomiting, unspecified (principal); K59.09 Other constipation; R14.0 Abdominal distension (gaseous); G82.20 Paraplegia, unspecified; D63.8 Anemia in other chronic diseases classified elsewhere; N31.9 Neuromuscular dysfunction of bladder, unspecified; K52.89 Other specified noninfective gastroenteritis and colitis; G89.4 Chronic pain syndrome; Z85.6 Personal history of leukemia; Z79.891 Long term (current) use of opiate analgesic; Z98.1 Arthrodesis status; Z88.1 Allergy status to other antibiotic agents
CPT/HCPCS: 99284; 96374; 96375 ×3; 96361 ×2; 74022; 80053; 85025

== ENCOUNTER 2024-02-20 13:52 | Inpatient (IN) | payer MEDICARE, OTHER, SELFPAY ==
[2024-02-20] VITALS (16 sets, daily range): BP systolic 95–189; BP diastolic 66–138
[2024-02-20] MEDS: ZOFRAN 4 MG IV ×4 (07:35→18:04)
[2024-02-20 07:40] LABS: % Basophils 0.5 % (0-2); % Eosinophils 1.2 % (0-6); % Immature Granulocytes 0.3 % (0-0.5); % Lymphocytes 9.3 % (20.5-51.1); % Monocytes 3.4 % (1.7-9.3); % Neutrophils 85.3 % (42.2-75.2); Absolute Eosinophils 0.1 10^3/uL (0-0.7); Absolute Lymphocytes 0.7 10^3/uL (1.2-3.4); Absolute Monocytes 0.3 10^3/uL (0.1-0.6); Absolute Neutrophils 6.3 10^3/uL (1.4-6.5); Hemoglobin 11.7 g/dL (13.0-18.0); Mean Corp Hgb Conc. 34.4 g/dL (33.0-37.0); Mean Corpuscular Hgb 27.9 pg (27.0-31.0); Mean Platelet Volume 9.6 fL (7.4-10.4); Nucleated Red Blood Cells % 0 % (-); Platelet Count 206 10^3/uL (130-400); Red Cell Dist. Width 15.9 % (11.5-14.5); White Blood Cell Count 7.3 10^3/uL (4.8-10.8)
[2024-02-20] MEDS: DILAUDID 1 MG IV ×3 (07:42→18:05)
[2024-02-20] MEDS: NSS 1000 IV ×2 (07:43→18:16)
[2024-02-20 08:02] LABS: Lactic Acid 0.5 mmol/L (0.7-2.0)
[2024-02-20 08:03] LABS: ALT (SGPT) < 10 U/L (0-50); AST (SGOT) 18 U/L (17-59); Albumin 3.9 g/dl (3.5-5.0); Alkaline Phosphatase 63 U/L (38-126); Blood Urea Nitrogen 19 mg/dl (9-20); Calcium 8.9 mg/dl (8.4-10.2); Carbon Dioxide 28 mmol/L (22-30); Chloride 104 mmol/L (98-107); Glucose 119 mg/dl (70-99); Lipase 146 U/L (23-300); Potassium 3.7 mmol/L (3.5-5.1); Sodium 139 mmol/L (135-145); Total Bilirubin 1.3 mg/dl (0.2-1.3); Total Protein 7.3 g/dl (6.3-8.2); eGFR > 60.00
[2024-02-20] MEDS: REGLAN 10 MG IV (09:54)
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
[2024-02-20 13:41] LABS: Urine Albumin 2+ (Neg - Trace); Urine Bilirubin Negative (Negative); Urine Character Very Cloudy (Clear); Urine Glucose Negative (Negative); Urine Ketone Trace (Negative); Urine Leukocyte 2+ (Negative); Urine Nitrite Negative (Negative); Urine Occult Blood 4+ (Negative); Urine Urobilinogen Negative (Neg - 1+)
[2024-02-20 13:42] LABS: Urine Color Yellow
[2024-02-20 14:16] LABS: Urine Mucus Many; Urine Red Blood Cell 30-40 /HPF (0-2); Urine Triple Phosphate Crystal Seen; Urine White Cell >100 /HPF (0-5)
[2024-02-20 14:18] LABS: Urine Amorphous Seen; Urine Bacteria Few (Negative)
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
[2024-02-20 15:51] LABS: Amphetamines Negative (Negative)
[2024-02-20 15:52] LABS: Barbiturates Negative (Negative); Benzodiazepines Positive (Negative); Buprenorphine Negative (Negative); Cocaine Negative (Negative); Marijuana Negative (Negative); Methadone Negative (Negative); Methamphetamines Negative (Negative); Opiates Positive (Negative); Phencyclidine Negative (Negative); Tricyclic Antidepressants Negative (Negative)
[2024-02-20 16:00] LABS: Fentanyl, Urine Negative (Negative)
[2024-02-20] MEDS: STERILE WATER FOR INJECTION 10 ML IV ×2 (18:04→23:49)
[2024-02-20] MEDS: MERREM 500 MG IV ×2 (18:04→23:49)
[2024-02-20] MEDS: LOVENOX 40 MG SC (18:05)
--- NOTE | 2024-02-20 19:19 | PTCARENOTE ---
During change of shift report, pt's hospital monitor alarming for >150BPM. Vitals assessed, BP 130/78, 98.4F orally, 99% SaO2 on room air. Pt offers moderate pain complaint after PRN Dilaudid administration, states PRN Zofran was effective.
DINESH Pike notified, instructed to monitor and keep updating with any changes. Call gil within reach.
[2024-02-20] MEDS: LIORESAL PO (19:48)
[2024-02-20] MEDS: ZANAFLEX PO ×2 (19:48→23:55)
[2024-02-20] MEDS: DOLOPHINE PO (19:48)
[2024-02-20] MEDS: DOLOPHINE 20 MG PO (21:38)
[2024-02-20] MEDS: VALIUM PO (22:54)
[2024-02-20] MEDS: LIORESAL 20 MG PO (22:56)
[2024-02-21 03:23] VITALS: BP 95/61
[2024-02-21] MEDS: NSS 1000 IV ×3 (04:07→21:15)
[2024-02-21 06:00] VITALS: BMI 19.9
--- NOTE | 2024-02-21 06:01 | PTCARENOTE ---
Pt refused several PO medications last night d/t intermittent nausea, accepted Methadone and Baclofen. DINESH Pike notified.
HR stabilized at approx 2300 between 90-110s, DINESH Pike updated throughout shift. Pt appears to be resting comfortably at this time, respirations even and non-labored. Call gil within reach.
Pt has been refusing Q2Ts overnight, states that if he 'has a bar, it's easier to shift weight.' Located trapeze bar on unit, awaiting in room to be placed on bed once pt is awake.
[2024-02-21] MEDS: STERILE WATER FOR INJECTION 10 ML IV ×3 (06:12→17:16)
[2024-02-21] MEDS: MERREM 500 MG IV ×3 (06:12→17:15)
[2024-02-21 08:00] LABS: Hematocrit 28.1 % (39.0-52.0); Mean Corp Hgb Conc. 33.1 g/dL (33.0-37.0); Mean Corpuscular Hgb 27.9 pg (27.0-31.0); Mean Corpuscular Volume 84.4 fL (80.0-94.0); Mean Platelet Volume 9.4 fL (7.4-10.4); Platelet Count 171 10^3/uL (130-400); Red Blood Cell Count 3.33 10^6/uL (4.70-6.10); Red Cell Dist. Width 16.5 % (11.5-14.5); White Blood Cell Count 4.5 10^3/uL (4.8-10.8)
[2024-02-21 08:03] VITALS: BP 103/60
[2024-02-21] MEDS: DOLOPHINE 20 MG PO ×3 (08:17→21:59)
[2024-02-21] MEDS: ZANAFLEX 4 MG PO ×3 (08:17→21:59)
[2024-02-21 08:18] LABS: Hemoglobin 9.3 g/dL (13.0-18.0)
[2024-02-21 08:36] LABS: Blood Urea Nitrogen 16 mg/dl (9-20); Calcium 8.2 mg/dl (8.4-10.2); Carbon Dioxide 26 mmol/L (22-30); Chloride 108 mmol/L (98-107); Estimated Creatinine Clearance 107 ml/min; Glucose 104 mg/dl (70-99); Potassium 3.7 mmol/L (3.5-5.1); Sodium 138 mmol/L (135-145); eGFR > 60.00
[2024-02-21 11:24] VITALS: BP 83/43
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
[2024-02-21] MEDS: VALIUM 5 MG PO ×2 (12:22→21:58)
[2024-02-21] MEDS: LIORESAL PO (12:22)
[2024-02-21] MEDS: PAXIL 20 MG PO (12:22)
[2024-02-21] MEDS: DULCOLAX 10 MG RECTAL (12:22)
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
[2024-02-21] MEDS: LIORESAL 20 MG PO ×2 (15:32→21:58)
[2024-02-21 16:20] VITALS: BP 97/57
[2024-02-21] MEDS: LOVENOX 40 MG SC (17:15)
[2024-02-21 19:59] VITALS: BP 82/44
[2024-02-21 23:10] VITALS: BP 91/57
--- NOTE | 2024-02-21 23:50 | PTCARENOTE ---
Addendum entered by Blanca Stafford RN 02/22/24 06:55:
Recheck BP @ 2310 91/57. At 0350 BP was 85/53. DINESH updated, new orders for 500 mL bolus of NSS. Currently administering. Dayshift nurse given report. Will recheck BP.
Original Note:
Pt BP @ 2000 was 82/44. Pt hypotensive throughout the day. Pt is asymtopatic and does have a hx of hypotension but explained he is not usually this low. SPEECH PATHOLOGY TEACHER notified, new orders for 1000 mL bolus of NSS. Currently administering. Will recheck BP.
Call gil within reach.
[2024-02-22] MEDS: STERILE WATER FOR INJECTION 10 ML IV ×3 (00:15→12:15)
[2024-02-22] MEDS: MERREM 500 MG IV ×3 (00:15→12:15)
[2024-02-22] MEDS: NSS 1000 IV (01:14)
[2024-02-22 03:50] VITALS: BP 85/53
[2024-02-22] MEDS: DILAUDID 1 MG IV (03:56)
[2024-02-22 04:43] LABS: Hematocrit 24.6 % (39.0-52.0); Hemoglobin 7.9 g/dL (13.0-18.0); Mean Corp Hgb Conc. 32.1 g/dL (33.0-37.0); Mean Corpuscular Hgb 27.9 pg (27.0-31.0); Mean Corpuscular Volume 86.9 fL (80.0-94.0); Mean Platelet Volume 9.9 fL (7.4-10.4); Platelet Count 124 10^3/uL (130-400); Red Blood Cell Count 2.83 10^6/uL (4.70-6.10); Red Cell Dist. Width 16.8 % (11.5-14.5); White Blood Cell Count 2.8 10^3/uL (4.8-10.8)
[2024-02-22] MEDS: NSS 500 IV (04:59)
[2024-02-22 05:09] LABS: Blood Urea Nitrogen 13 mg/dl (9-20); Calcium 7.6 mg/dl (8.4-10.2); Carbon Dioxide 25 mmol/L (22-30); Chloride 111 mmol/L (98-107); Estimated Creatinine Clearance 95 ml/min; Glucose 92 mg/dl (70-99); Potassium 3.7 mmol/L (3.5-5.1); Sodium 136 mmol/L (135-145); eGFR > 60.00
[2024-02-22] MEDS: LIORESAL 20 MG PO ×2 (07:56→15:00)
[2024-02-22] MEDS: DOLOPHINE 20 MG PO ×2 (07:56→15:00)
[2024-02-22 08:10] VITALS: BP 99/61
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
[2024-02-22] MEDS: VALIUM 5 MG PO (10:15)
[2024-02-22] MEDS: PAXIL 20 MG PO (10:15)
[2024-02-22] MEDS: ZANAFLEX 4 MG PO ×2 (10:15→15:00)
[2024-02-22 11:17] VITALS: BP 97/59
--- NOTE | 2024-02-22 11:47 | CM ---
Pt for d/c today
Spoke with pt at bedside
Will need ambulance transport
Discussed IMM
Pt has had [facility] in past - referral sent in [facility]
Plan - home with [facility]
Fax - [phone]
[2024-02-22] MEDS: ProAmatine 5 MG PO (12:15)
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
--- NOTE | 2024-02-22 15:39 | PTCARENOTE ---
[facility] adult health clinical nurse specialist-Daniel texted Dr. Rodgers to transmit script for midodrine and levofloxin.
[2024-02-22 15:41] VITALS: BP 105/64
== END 2024-02-22 16:08 | disposition home or self-care (01) | DRG 690 ==
LOC: 3 WEST ACU 13:52
PROVIDERS: Physician Assistant; Registered Nurse; ADMITTING PHYSICIAN Internal Medicine; EMERGENCY PHYSICIAN Emergency Medicine; FAMILY PHYSICIAN Family Medicine
DX: N39.0 Urinary tract infection, site not specified (principal); F11.20 Opioid dependence, uncomplicated; G82.20 Paraplegia, unspecified; C92.10 Chronic myeloid leukemia, BCR/ABL-positive, not having achieved remission; G89.4 Chronic pain syndrome; F32.A Depression, unspecified; D63.0 Anemia in neoplastic disease; N31.9 Neuromuscular dysfunction of bladder, unspecified; M24.50 Contracture, unspecified joint
CPT/HCPCS: 74177; 80048; 80053; 80306; 80307; 81003; 81015; 83605; 83690; 85025; 85027; 87086; 93005; 96361; 96374; 96375; 96376; 99285; Q9967

== ENCOUNTER 2024-03-27 09:25 | Emergency (ER) | payer MEDICARE, OTHER, SELFPAY ==
[2024-03-27] VITALS (9 sets, daily range): BP systolic 106–127; BP diastolic 71–93
--- NOTE | 2024-03-27 09:52 | ED.GENMED ---
History of Present Illness
General
Chief Complaint: Abdominal Symptoms
Source: patient and records
Exam Limitations: none
Time Seen by Provider: 03/27/24 09:33
Travel History
Have you had any contact with someone who has COVID-19?: No
Do you have any symptoms of coronavirus? Fever > 100 degrees, chills, cough, shortness of breath, sore throat, loss of taste or smell, muscle aches, or headache?: No
History of Present Illness
History of Present Illness:
44-year-old male history of T4 paraplegia presents with recurrent nausea and vomiting overnight. This occurs about once a month. No precipitating event. Was unable to take his pain medicine this morning. Denies fever denies vomiting blood denies
abdominal pain. Chronic back and upper neck pain. This is typical for his symptoms
Past History
Past History
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
ED Past Surgical History: Orthopedic (right ankle fracture, Multiple other orthopedic surgery's. Spinal fusion) and Urological (Urostomy)
Social History
Tobacco: Non-smoker
Alcohol: None
Drug: None
Personal: Single
Living: with family
Employment: Not employed
Family History
Family History: Other (Noncontributory)
Review of Systems
Review of Systems
All Other Systems: Not applicable
Constitutional: Denies fever
Respiratory: Reports no symptoms
Cardiac: Reports no symptoms
Phy Exam
Physical Exam
Physical Exam:
GENERAL: Alert and oriented in no apparent distress
EYE: Orbits normal.
NECK: Supple, no significant adenopathy.
ENT: Pharynx without erythema
CARDIAC: Regular rate and rhythm without any obvious murmurs.
LUNGS: Clear breath sounds,normal
ABDOMEN: Soft, without focal tenderness or distention. Urostomy.
NEUROLOGICAL: Alert and oriented , paraplegia
SKIN: Warm and dry, no rash or lesion, pale.
MUSCULOSKELETAL: Chronic contractures atrophy and chronic deformities to the lower extremities
PSYCH: Normal and appropriate interaction.
Course
Orders/Labs/Results
Orders:
Orders
03/27/24 09:40
IV Insert/Care/Rem.- Treatment PRN
0.9% Sodium Chloride 1000 ml [Nss] 1,000 ml IV BOLUS
HYDROmorphone [Dilaudid] 1 mg IV NOW STA
Ondansetron Injectable [Zofran] 4 mg IV NOW STA
03/27/24 09:44
CR Obstruct Series W/pa Chest Urgent
Comment:
Reason For Exam: Recurrent vomiting
03/27/24 09:49
Methadone [Dolophine] 20 mg PO NOW STA
03/27/24 09:54
Complete Blood Count/With Diff Urgent
Comprehensive Metabolic Panel Urgent
Lipase Urgent
03/27/24 11:08
EKG [Electrocardiogram (*1)] Urgent
Reason for Study: QTc Monitoring
EKG- Treatment ONCE
03/27/24 11:18
Diphenhydramine [Benadryl] 25 mg IV NOW STA
Prochlorperazine [Compazine] 5 mg IV NOW STA
03/27/24 12:33
Prochlorperazine [Compazine] 5 mg IV NOW STA
03/27/24 15:48
Heparin Pf [Heparin Lock Flush] 500 unit IV NOW ONE
Abnormal Lab Results
03/27/24
09:54
RBC 4.34 L 10^6/uL
(4.70-6.10)
Hgb 12.0 L g/dL
(13.0-18.0)
Hct 34.8 L %
(39.0-52.0)
RDW 15.9 H %
(11.5-14.5)
Absolute Neuts (auto) 8.9 H 10^3/uL
(1.4-6.5)
Absolute Lymphs (auto) 0.5 L 10^3/uL
(1.2-3.4)
Neutrophils % 89.7 H %
(42.2-75.2)
Lymphocytes % 5.5 L %
(20.5-51.1)
BUN 24 H mg/dl
(9-20)
Glucose 136 H mg/dl
(70-99)
AST 16 L U/L
(17-59)
03/27/24 09:54
03/27/24 09:54
Vital Signs
Initial and Last Documented VS:
Initial Vital Signs
Temp Pulse Resp BP Pulse Ox
99.8 F 118 16 121/93 99
03/27/24 09:31 03/27/24 09:31 03/27/24 09:31 03/27/24 09:31 03/27/24 09:31
Last Documented Vital Signs
Temp Pulse Resp BP Pulse Ox
99.8 F 91 12 108/72 100
03/27/24 09:31 03/27/24 15:30 03/27/24 15:30 03/27/24 15:00 03/27/24 10:00
MDM/Problems Addressed
Differential Diagnosis Includes:
Patient with recurrent nausea vomiting. This has been a chronic intermittent issue. Admitted about a month ago for same. No serious etiology found. Chronic hydronephrosis. Mixed rtacy urine at that time. Up in progress.
*Pulse Oximetry
Patient hypoxic: no
*Critical Care Note
Total Time (30-74mins, 75-104mins- exclusive of procedures): Not Applicable
Data Reviewed
Review of Other/Old Records Reveals: Labs, Records, Radiology Studies, Testing and Discharge Summary
Update Note
Update Note:
1230. Patient rechecked. Still complaining of some nausea. Testing reviewed... Dilated stomach but abdomen is soft. This has been a recurring issue. Will try 1 more dose of Compazine.
1 patient doing much better. Keep liquids down. Nontoxic. Stable for discharge 1550....
ED Attending Note
-
Portions of this chart may have been created with voice recognition software.� Occasional wrong word or��sound alike� substitutions may have occurred due to the inherent limitations of voice recognition software.
Discharge Plan
Departure
Patient Disposition: Home (Routine Discharge)
Date of Disposition: 03/27/24
Time of Disposition: 15:20
Patient with high blood pressure during this ER visit?: No
Discharge Problem:
Recurrent nausea vomiting, Constipation, Paraplegia at T4 level
Instructions: Nausea and Vomiting, Adult (DC)
Prescriptions:
No Action
methadone 10 mg Tablet
20 mg PO TID
baclofen 20 mg Tablet
20 mg PO TID
hydromorphone [Dilaudid] 4 mg Tablet
4 mg PO Q8HPRN PRN (Reason: severe pain)
diazepam 5 mg Tablet
5 mg PO BID
Sprycel 50 mg Tablet
50 mg PO DAILY
paroxetine HCl 20 mg Tablet
20 mg PO DAILY
tizanidine 4 mg Tablet
4 mg PO TID
bisacodyl 10 mg suppository
10 mg [place] Q48H Qty: 30 0RF
polyethylene glycol 3350 [HealthyLax] 17 gram powder in packet
17 g PO Q48H
midodrine 5 mg Tablet
5 mg PO TID@0800,1300,1800 PRN (Reason: SBP < 90) Qty: 90 0RF
levofloxacin 750 mg tablet
750 mg PO DAILY 5 Days Qty: 5 0RF
Referrals:
UNKNOWN - PT DOES,NOT KNOW [Family Provider] -
Activity Restrictions/Additional Instructions:
Call your physicians for close follow-up
Return with any concerns including increased vomiting abdominal pain fever or any other concerning symptoms
Interventions
Interventions:
*Risk Screen - Suicide Last Done: 03/27/24 09:34
*General Assessment Last Done: 03/27/24 09:34
*Neglect/Abuse Screening Last Done: 03/27/24 09:34
*ED COVID-19 Vaccine History Last Done: 03/27/24 09:34
SH-Gvlhed-Fefhasjaek Assessment Last Done: 03/27/24 09:35
Discharge Date and Time
Print Language: DIVEHI
[2024-03-27] MEDS: ZOFRAN 4 MG IV (09:55)
[2024-03-27] MEDS: DILAUDID 1 MG IV (09:55)
[2024-03-27] MEDS: NSS 1000 IV (09:57)
[2024-03-27 10:09] LABS: % Basophils 0.3 % (0-2); % Eosinophils 0.1 % (0-6); % Immature Granulocytes 0.4 % (0-0.5); % Lymphocytes 5.5 % (20.5-51.1); % Neutrophils 89.7 % (42.2-75.2); Absolute Lymphocytes 0.5 10^3/uL (1.2-3.4); Absolute Monocytes 0.4 10^3/uL (0.1-0.6); Absolute Neutrophils 8.9 10^3/uL (1.4-6.5); Hematocrit 34.8 % (39.0-52.0); Mean Corp Hgb Conc. 34.5 g/dL (33.0-37.0); Mean Corpuscular Hgb 27.6 pg (27.0-31.0); Mean Corpuscular Volume 80.2 fL (80.0-94.0); Mean Platelet Volume 9.3 fL (7.4-10.4); Nucleated Red Blood Cells % 0 % (-); Platelet Count 265 10^3/uL (130-400); Red Blood Cell Count 4.34 10^6/uL (4.70-6.10); Red Cell Dist. Width 15.9 % (11.5-14.5); White Blood Cell Count 9.9 10^3/uL (4.8-10.8)
[2024-03-27 10:28] LABS: ALT (SGPT) < 10 U/L (0-50); AST (SGOT) 16 U/L (17-59); Albumin 4.1 g/dl (3.5-5.0); Alkaline Phosphatase 62 U/L (38-126); Blood Urea Nitrogen 24 mg/dl (9-20); Carbon Dioxide 28 mmol/L (22-30); Chloride 106 mmol/L (98-107); Glucose 136 mg/dl (70-99); Lipase 106 U/L (23-300); Potassium 3.7 mmol/L (3.5-5.1); Sodium 142 mmol/L (135-145); Total Bilirubin 1.3 mg/dl (0.2-1.3); Total Protein 7.6 g/dl (6.3-8.2); eGFR > 60.00
[2024-03-27] MEDS: DOLOPHINE 20 MG PO (10:37)
[2024-03-27] MEDS: BENADRYL 25 MG IV (11:34)
[2024-03-27] MEDS: COMPAZINE 5 MG IV ×2 (11:35→12:38)
--- NOTE | 2024-03-27 16:07 | VATNOTE ---
called to deaccess left subq port. brisk blood return noted prior to. flushed with 500 units heparin per protocol.
== END 2024-03-27 18:04 | disposition home or self-care (01) ==
LOC: EMR 09:25
PROVIDERS: EMERGENCY PHYSICIAN Emergency Medicine
DX: R11.2 Nausea with vomiting, unspecified (principal); K59.00 Constipation, unspecified; G82.20 Paraplegia, unspecified
CPT/HCPCS: 99285; 96374; 96375 ×4; 96361; 96376; 74022; 80053; 83690; 85025; 93005

== ENCOUNTER 2024-03-30 17:05 | Emergency (ER) | payer MEDICARE, OTHER, SELFPAY ==
[2024-03-30 17:10] VITALS: BP 100/84
[2024-03-30 17:19] VITALS: BP 112/82
[2024-03-30 17:48] LABS: % Basophils 0.4 % (0-2); % Eosinophils 0.2 % (0-6); % Immature Granulocytes 0.4 % (0-0.5); % Lymphocytes 4.1 % (20.5-51.1); % Monocytes 3.1 % (1.7-9.3); % Neutrophils 91.8 % (42.2-75.2); Absolute Basophils 0.1 10^3/uL (0-0.2); Absolute Immature Granulocytes 0.1 10^3/uL (0-0.05); Absolute Lymphocytes 0.5 10^3/uL (1.2-3.4); Absolute Monocytes 0.4 10^3/uL (0.1-0.6); Absolute Neutrophils 12.2 10^3/uL (1.4-6.5); Hematocrit 34.7 % (39.0-52.0); Hemoglobin 12.2 g/dL (13.0-18.0); Mean Corp Hgb Conc. 35.2 g/dL (33.0-37.0); Mean Corpuscular Hgb 27.9 pg (27.0-31.0); Mean Corpuscular Volume 79.2 fL (80.0-94.0); Mean Platelet Volume 8.9 fL (7.4-10.4); Nucleated Red Blood Cells % 0 % (-); Platelet Count 258 10^3/uL (130-400); Red Blood Cell Count 4.38 10^6/uL (4.70-6.10); Red Cell Dist. Width 16.3 % (11.5-14.5); White Blood Cell Count 13.3 10^3/uL (4.8-10.8)
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
[2024-03-30 18:00] LABS: Lactic Acid < 0.5 mmol/L (0.7-2.0)
[2024-03-30] MEDS: ZOFRAN 4 MG IV (18:02)
[2024-03-30] MEDS: NSS 1000 IV (18:02)
[2024-03-30] MEDS: DILAUDID 1 MG IV (18:04)
[2024-03-30 18:06] LABS: ALT (SGPT) < 10 U/L (0-50); AST (SGOT) 16 U/L (17-59); Albumin 3.7 g/dl (3.5-5.0); Alkaline Phosphatase 58 U/L (38-126); Blood Urea Nitrogen 15 mg/dl (9-20); Calcium 8.8 mg/dl (8.4-10.2); Carbon Dioxide 27 mmol/L (22-30); Chloride 104 mmol/L (98-107); Glucose 106 mg/dl (70-99); Lipase 108 U/L (23-300); Potassium 3.5 mmol/L (3.5-5.1); Sodium 139 mmol/L (135-145); Total Bilirubin 1.1 mg/dl (0.2-1.3); Total Protein 6.7 g/dl (6.3-8.2); eGFR > 60.00
[2024-03-30 18:37] LABS: Urine Albumin 2+ (Neg - Trace); Urine Bilirubin 1+ (Negative); Urine Character Very Cloudy (Clear); Urine Color Yellow; Urine Glucose Negative (Negative); Urine Ketone Trace (Negative); Urine Leukocyte 2+ (Negative); Urine Nitrite Negative (Negative); Urine Occult Blood 4+ (Negative); Urine Specific Gravity 1.015 (<1.030); Urine Urobilinogen 1+ (Neg - 1+)
[2024-03-30 19:00] VITALS: BP 110/65
[2024-03-30 19:16] LABS: Urine Amorphous Seen
[2024-03-30 19:17] LABS: Urine White Cell >100 /HPF (0-5)
[2024-03-30] MEDS: COMPAZINE 10 MG IV (19:25)
[2024-03-30 20:00] VITALS: BP 109/79
[2024-03-31] MEDS: ZOFRAN ODT (ORALLY DISINTEGRATING) 4 MG PO (01:25)
== END 2024-03-31 01:53 | disposition home or self-care (01) ==
LOC: EMR 17:05
PROVIDERS: EMERGENCY PHYSICIAN Student in an Organized Health Care Education/Training Program; FAMILY PHYSICIAN Family Medicine
DX: K59.00 Constipation, unspecified (principal); G82.20 Paraplegia, unspecified
CPT/HCPCS: 99285; 96374; 96375 ×2; 96361; 74177; 80053; 81003; 81015; 83605; 83690; 85025; 87077; 87086; 87186; 93005; Q9967

== ENCOUNTER 2024-04-30 17:05 | Inpatient (IN) | payer MEDICARE, OTHER, SELFPAY ==
[2024-04-30] VITALS (15 sets, daily range): BP systolic 103–124; BP diastolic 71–89; BMI 19.7
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
[2024-04-30] MEDS: NSS 500 IV ×2 (09:32→16:31)
[2024-04-30] MEDS: ZOFRAN 4 MG IV ×4 (09:33→19:14)
[2024-04-30] MEDS: DILAUDID 1 MG IV ×2 (09:36→13:26)
[2024-04-30 09:52] LABS: % Basophils 0.3 % (0-2); % Eosinophils 0.1 % (0-6); % Immature Granulocytes 0.3 % (0-0.5); % Monocytes 2.6 % (1.7-9.3); % Neutrophils 91.7 % (42.2-75.2); Absolute Lymphocytes 0.5 10^3/uL (1.2-3.4); Absolute Monocytes 0.3 10^3/uL (0.1-0.6); Hematocrit 34.9 % (39.0-52.0); Hemoglobin 11.9 g/dL (13.0-18.0); Mean Corp Hgb Conc. 34.1 g/dL (33.0-37.0); Mean Corpuscular Volume 82.1 fL (80.0-94.0); Nucleated Red Blood Cells % 0 % (-); Platelet Count 232 10^3/uL (130-400); Red Blood Cell Count 4.25 10^6/uL (4.70-6.10); Red Cell Dist. Width 17.4 % (11.5-14.5); White Blood Cell Count 9.9 10^3/uL (4.8-10.8)
[2024-04-30 09:57] LABS: ALT (SGPT) < 10 U/L (0-50); AST (SGOT) 14 U/L (17-59); Albumin 4.2 g/dl (3.5-5.0); Alkaline Phosphatase 58 U/L (38-126); Blood Urea Nitrogen 25 mg/dl (9-20); Carbon Dioxide 24 mmol/L (22-30); Chloride 109 mmol/L (98-107); Estimated Creatinine Clearance 99 ml/min; Glucose 117 mg/dl (70-99); Lipase 156 U/L (23-300); Potassium 3.6 mmol/L (3.5-5.1); Sodium 143 mmol/L (135-145); Total Bilirubin 0.8 mg/dl (0.2-1.3); eGFR > 60.00
[2024-04-30 15:47] LABS: Methadone Positive (Negative); Opiates Positive (Negative)
[2024-04-30 15:48] LABS: Amphetamines Negative (Negative); Barbiturates Negative (Negative); Benzodiazepines Positive (Negative); Buprenorphine Negative (Negative); Cocaine Negative (Negative); Marijuana Negative (Negative); Methamphetamines Negative (Negative); Phencyclidine Negative (Negative); Tricyclic Antidepressants Negative (Negative)
[2024-04-30 16:04] LABS: Fentanyl, Urine Negative (Negative)
[2024-04-30] MEDS: NSS 1000 IV ×2 (16:32→19:44)
[2024-04-30 16:36] LABS: Urine Albumin 2+ (Neg - Trace); Urine Bilirubin Negative (Negative); Urine Character Very Cloudy (Clear); Urine Color Yellow; Urine Glucose Negative (Negative); Urine Ketone Trace (Negative); Urine Leukocyte 2+ (Negative); Urine Nitrite Negative (Negative); Urine Occult Blood 3+ (Negative); Urine Urobilinogen Negative (Neg - 1+)
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
[2024-04-30] MEDS: PHENERGAN 51 MG IV (16:50)
[2024-04-30 17:02] LABS: Urine Bacteria Many (Negative); Urine White Cell 50-60 /HPF (0-5)
[2024-04-30] MEDS: INVANZ 60 MG IV (18:10)
[2024-04-30] MEDS: DILAUDID 0.5 MG IV ×2 (19:36→23:41)
[2024-04-30] MEDS: HEPARIN 5000 UNITS SC (19:56)
[2024-04-30] MEDS: ZANAFLEX 4 MG PO (20:03)
[2024-04-30] MEDS: COMPAZINE 10 MG IV (21:27)
[2024-04-30] MEDS: DOLOPHINE 20 MG PO (21:30)
[2024-04-30] MEDS: LIORESAL 20 MG PO (22:15)
[2024-04-30] MEDS: VALIUM PO (23:39)
[2024-05-01] MEDS: ZOFRAN 4 MG IV (03:41)
[2024-05-01] MEDS: DILAUDID 0.5 MG IV (03:41)
--- NOTE | 2024-05-01 04:58 | PTCARENOTE ---
At 2199, [facility] informed this RN that pt feels like he is withdrawing. This RN walked into pt's room to assess pt and ask him his symptoms. Pt had cellphone on his chest open to an article with the headline 'What are withdrawal symptoms?' w/ the
symptoms bulleted underneath. Pt stated 'I feel irritable, restless, and nauseous'. Pt received Dilaudid 0.5mg IV at 1935, Zofran 4mg IV at 1913, Compazine 10mg IV at 2126, and Methadone 20mg PO at 2129. Pt educated on meds given. Temp 98.6, HR 76,
BP 124/76, 97% RA. No tremors present and pt appeared comfortable in bed. RN LACTATION notified, no new orders. Plan of care ongoing
[2024-05-01 06:04] LABS: % Basophils 0.2 % (0-2); % Immature Granulocytes 0.4 % (0-0.5); % Lymphocytes 3.2 % (20.5-51.1); % Monocytes 2.6 % (1.7-9.3); % Neutrophils 93.6 % (42.2-75.2); Absolute Immature Granulocytes 0.1 10^3/uL (0-0.05); Absolute Lymphocytes 0.4 10^3/uL (1.2-3.4); Absolute Monocytes 0.3 10^3/uL (0.1-0.6); Absolute Neutrophils 11.3 10^3/uL (1.4-6.5); Hematocrit 32.5 % (39.0-52.0); Hemoglobin 10.6 g/dL (13.0-18.0); Mean Corp Hgb Conc. 32.6 g/dL (33.0-37.0); Mean Corpuscular Hgb 28.2 pg (27.0-31.0); Mean Corpuscular Volume 86.4 fL (80.0-94.0); Mean Platelet Volume 9.3 fL (7.4-10.4); Nucleated Red Blood Cells % 0 % (-); Platelet Count 216 10^3/uL (130-400); Red Blood Cell Count 3.76 10^6/uL (4.70-6.10); Red Cell Dist. Width 17.5 % (11.5-14.5); White Blood Cell Count 12.1 10^3/uL (4.8-10.8)
[2024-05-01 06:42] LABS: ALT (SGPT) 11 U/L (0-50); AST (SGOT) 17 U/L (17-59); Albumin 3.6 g/dl (3.5-5.0); Alkaline Phosphatase 54 U/L (38-126); Blood Urea Nitrogen 25 mg/dl (9-20); Calcium 8.5 mg/dl (8.4-10.2); Carbon Dioxide 19 mmol/L (22-30); Chloride 114 mmol/L (98-107); Estimated Creatinine Clearance 99 ml/min; Glucose 174 mg/dl (70-99); Potassium 3.8 mmol/L (3.5-5.1); Sodium 145 mmol/L (135-145); Total Bilirubin 0.7 mg/dl (0.2-1.3); Total Protein 6.3 g/dl (6.3-8.2); eGFR > 60.00
[2024-05-01] MEDS: NSS 1000 IV ×2 (07:29→22:10)
[2024-05-01] MEDS: DOLOPHINE 20 MG PO ×3 (07:30→22:09)
[2024-05-01] MEDS: ZANAFLEX 4 MG PO ×2 (07:30→15:55)
[2024-05-01] MEDS: HEPARIN 5000 UNITS SC ×2 (07:31→20:42)
[2024-05-01 07:55] VITALS: BP 117/73
[2024-05-01] MEDS: LIORESAL 20 MG PO ×3 (08:38→20:46)
[2024-05-01] MEDS: VALIUM 5 MG PO ×2 (08:39→20:42)
[2024-05-01 11:48] VITALS: BP 85/58
[2024-05-01 11:50] VITALS: BP 82/45
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
[2024-05-01] MEDS: NSS 500 IV (12:20)
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
--- NOTE | 2024-05-01 13:22 | WOUNDNOTE ---
WON RN NOTE: Asked to see patient for urostomy needs. Patient has old ileal conduit using coloplast flat 2 piece appliance, no leakage noted, patient doesn't recall when last changed. Patient states his mother changes it and writes it down in a
diary. Called [facility] for urostomy supplies as patient does not have his own and mother unable to come in to bring them. he will call mother and find out last change to notify nursing when next pouch change due. Nursing can assist patient in pouch
change. Turned patient sacrum and heels intact, on air mattress.
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
[2024-05-01 15:00] VITALS: BP 96/56
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
[2024-05-01] MEDS: INVANZ 60 MG IV (17:13)
[2024-05-01 23:24] VITALS: BP 96/42
[2024-05-01] MEDS: ZANAFLEX PO (23:31)
[2024-05-02] MEDS: DILAUDID 0.5 MG IV ×3 (01:46→13:05)
[2024-05-02] MEDS: NSS 1000 IV ×2 (05:21→20:14)
[2024-05-02 05:38] LABS: Hematocrit 24.1 % (39.0-52.0); Mean Corp Hgb Conc. 33.2 g/dL (33.0-37.0); Mean Corpuscular Hgb 28.6 pg (27.0-31.0); Mean Corpuscular Volume 86.1 fL (80.0-94.0); Mean Platelet Volume 9.9 fL (7.4-10.4); Platelet Count 135 10^3/uL (130-400); White Blood Cell Count 4.4 10^3/uL (4.8-10.8)
--- NOTE | 2024-05-02 05:54 | PTCARENOTE ---
Lab informed this RN of critical hgb value. Hgb decreased from 10.6 to 8.0. Pt asymptomatic. AUTOMATED ACCESS SYSTEMS TECHNICIAN made aware, new no orders provided.
[2024-05-02 06:00] LABS: Blood Urea Nitrogen 20 mg/dl (9-20); Calcium 7.4 mg/dl (8.4-10.2); Carbon Dioxide 19 mmol/L (22-30); Chloride 115 mmol/L (98-107); Estimated Creatinine Clearance 114 ml/min; Glucose 94 mg/dl (70-99); Potassium 3.3 mmol/L (3.5-5.1); Sodium 139 mmol/L (135-145); eGFR > 60.00
[2024-05-02] MEDS: KCL 260 MEQ IV (06:58)
[2024-05-02 07:00] VITALS: BP 81/50
[2024-05-02] MEDS: HEPARIN 5000 UNITS SC ×2 (08:26→20:14)
[2024-05-02] MEDS: DOLOPHINE PO (08:26)
[2024-05-02] MEDS: VALIUM PO ×2 (08:26→08:30)
[2024-05-02] MEDS: ZANAFLEX PO ×2 (08:27→08:30)
--- NOTE | 2024-05-02 08:54 | CM ---
Addendum entered by Jennifer Shukla 05/02/24 11:12:
Patient out of room today for testing. CM will return to continue following with patient about discharge needs.
Original Note:
Patient seen yesterday pm. Per patient, he resides with his mother in a two story home with a portable ramp to enter. The patient resides on the first level. Patient has a hospital bed, trapeze, electric wheelchair, and sliding board. The patient
has had [facility] in the past and been to [place] [facility] and [facility]. The patient confirmed his pharmacy of choice is [facility], and PCP is Dr. Zaragoza. Patient PCP flight radio officer Jimmy has called several times with concerns about
patient seeing GI this admission. Physician made aware, and GI consult in process. CM continues to follow for discharge planning needs..
Plan: Discharge to home with no anticipated needs being identified at this time.
[2024-05-02] MEDS: DOLOPHINE 10 MG PO (12:59)
--- NOTE | 2024-05-02 13:08 | PTCARENOTE ---
pt only received partial methadone dose (10mg) this morning as he began coughing and stating he was short of breath and it was burning his throat. He went down for his Gi test without finishing the other part of his dose and 10mg was wasted in med
room, in addition to his 5mg Valium, and tizanidine.
[2024-05-02] MEDS: LIORESAL PO (13:16)
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
[2024-05-02 15:00] VITALS: BP 106/58
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
[2024-05-02] MEDS: ZANAFLEX 4 MG PO ×2 (16:20→22:40)
[2024-05-02] MEDS: DOLOPHINE 20 MG PO ×2 (16:20→22:40)
[2024-05-02 16:49] LABS: Iron 55 ug/dl (49-181)
[2024-05-02 16:58] LABS: Hematocrit 25.1 % (39.0-52.0); Hemoglobin 8.4 g/dL (13.0-18.0)
[2024-05-02 16:58] LABS: Percent Saturation 32 % (20-50); Total Iron Binding Capacity 169 ug/dl (261-462)
[2024-05-02] MEDS: REGLAN 5 MG PO (17:38)
[2024-05-02] MEDS: LIORESAL 20 MG PO ×2 (17:38→22:40)
[2024-05-02] MEDS: DULCOLAX 10 MG RECTAL (17:42)
[2024-05-02] MEDS: INVANZ 60 MG IV (17:42)
[2024-05-02] MEDS: NSS IV (19:40)
[2024-05-02] MEDS: VALIUM 5 MG PO (20:14)
[2024-05-02] MEDS: AMITIZA 24 MCG PO (20:14)
[2024-05-02 23:28] VITALS: BP 98/59
[2024-05-03] MEDS: NSS 1000 IV ×2 (03:34→11:29)
[2024-05-03] MEDS: DILAUDID 0.5 MG IV (06:31)
[2024-05-03 07:00] VITALS: BP 93/59
[2024-05-03] MEDS: REGLAN 5 MG PO ×2 (09:25→17:56)
[2024-05-03] MEDS: ZANAFLEX 4 MG PO (09:27)
[2024-05-03] MEDS: DOLOPHINE 20 MG PO ×3 (09:27→22:10)
[2024-05-03] MEDS: LIORESAL PO (09:27)
[2024-05-03] MEDS: VALIUM 5 MG PO ×2 (09:27→20:20)
[2024-05-03] MEDS: AMITIZA 24 MCG PO ×2 (09:28→20:21)
[2024-05-03] MEDS: HEPARIN 5000 UNITS SC ×2 (09:28→20:20)
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
[2024-05-03] MEDS: REGLAN PO (12:37)
--- NOTE | 2024-05-03 13:37 | PTCARENOTE ---
patient reports pain tolerable, refused breakfast due to ordered dietary limitations at that time, educated patient on medications for constipation and goal to prevent further constipation, turns with assist x1-2, needs encouragement to turn
[id number], vss, will continue to monitor.
[2024-05-03 15:00] VITALS: BP 107/75
--- NOTE | 2024-05-03 16:00 | PN.CDI ---
Addendum entered and electronically signed by Chavez Alexis MD 05/03/24 17:13:
Gastric outlet obstruction was ruled out
Original Note:
CDI
- -
CDI:
Physician Documentation Request
Admit Date: 04/30/24 17:05
Dear Doctor Reuben,
Patient presented with vomiting episodes
04/30 CT abdomen 'Air and fluid distended stomach without intestinal obstruction. Gastric outlet obstruction cannot be excluded.'
05/02 GI note states 'Patient likely has significant GI dysmotility for multiple reasons including neurogenic bowel as well as narcotic induced dysmotility'
Hospitalist progress note 'Recurrent vomiting episodes possibly secondary to dysmotility/gastric outlet obstruction likely as a consequence of prior T4 spinal cord injury and high doses of opioid '
05/02 upper GI and small bowel xray impression states 'gastric distention most consistent with gastroparesis, no fluoroscopic evidence of mechanical gastric outlet obstruction'
After careful study, please clarify the following:
____ - Gastric outlet obstruction was present on admission
____ - Gastric outlet obstruction was ruled out
____ - Gastric outlet obstruction is still a likely/probable diagnosis
____ - Other
Use of terms such as suspected, likely, concern for, or probable (associated with a specific diagnosis that is being evaluated, monitored, or treated as if it exists) are acceptable and can be coded in the inpatient setting, when documented at the
time of discharge.
Thank you,
Cassidy Ruth RN, BSN
CDI Specialist
tiger text
Please use your independent medical judgment in providing your response.
--- NOTE | 2024-05-03 16:08 | W.PN.ID1 ---
Date of Service
Date of Service: May 03, 2024
Today's Communication
Discontinue ertapenem.
Assessment / Plan
Chronic constipation
Suspected GI dysmotility
Bacteriuria from urostomy
Nephrolithiasis
Not felt to be obstructing per Urology.
Leukocytosis
CML
T4 paraplegia
Neurogenic bladder
Chronic pain syndrome
Recommendations:
Bacteriuria and pyuria would be expected with a urostomy, and recovery of bacteria is not completely indicative of urinary tract infection.
Patient overall clinically stable.
Will discontinue further antibiotics and continue with close observation.
I have counseled patient on adequate fluid intake. His description of dark-colored urine would be indicative of some degree of volume depletion prior to admission.
Chief Complaint
-: Other (Bacteriuria)
Subjective / Review of Systems
Review of Systems: No Fever and No Chills
Vital Signs / Physical Exam
Vital Signs
Vital Signs
Temp Pulse Resp BP Pulse Ox
97.9 F 95 18 107/75 97
05/03/24 15:00 05/03/24 15:00 05/03/24 15:00 05/03/24 15:00 05/03/24 15:00
Physical Exam
Constitutional: No Acute Distress, Comfortable, Chronically Ill and Non-toxic
Eyes: Sclera Anicteric
Pulmonary: Non Labored
Gastrointestinal: Non Distended
Genito-Urinary: Other (Urostomy in place with clear pale yellow urine. Minimal sediment.)
Neurological: Awake and Alert
Psychological: Calm
Objective Data
Lab Data
Lab Results
05/02/24 16:50
05/02/24 04:46
Estimated Creat Clear 114 ml/min 05/02/24 04:46
Total Bilirubin 0.7 mg/dl (0.2-1.3) 05/01/24 05:44
AST 17 U/L (17-59) 05/01/24 05:44
ALT 11 U/L (0-50) 05/01/24 05:44
Alkaline Phosphatase 54 U/L (38-126) 05/01/24 05:44
Most recent labs reviewed.
Micro Results:
04/30/24 16:17 Urine Culture - Final
Urine Escherichia coli - ESBL
M.I.C. RX
--------- ---
Amoxicillin/Potas. Clavulanate >16/8 R
Ampicillin >16 R
Ampicillin/Sulbactam >16/8 R
Cefazolin >16 R
Cefepime 8 SDD
Ceftazidime >16 R
Ceftriaxone >2 R
Ertapenem <=0.5 S
Ciprofloxacin >2 R
Gentamicin >8 R
Levofloxacin >4 R
Meropenem <=1 S
Nitrofurantoin-Urine Only <=32 S
Piperacillin/Tazobactam <=16 S
Tobramycin <=4 S
Trimethoprim/Sulfamethoxazole >2/38 R
Imaging:
04/30/2024 CT abdomen/pelvis with IV contrast: There is prior cystectomy with right lower quadrant urinary diversion. Moderate bilateral ureteral and renal collecting system dilatation, with likely partially obstructing time proximal left ureteral
calculus noted. There are also several small bilateral nonobstructing renal calculi. IVC filter is seated position. Cholelithiasis is noted.
[2024-05-03] MEDS: ZANAFLEX PO (16:56)
[2024-05-03] MEDS: LIORESAL 20 MG PO ×2 (16:56→22:10)
[2024-05-03 22:39] VITALS: BP 119/77
[2024-05-04] MEDS: ZANAFLEX PO ×4 (02:04→17:00)
[2024-05-04] MEDS: DILAUDID 0.5 MG IV ×3 (02:09→20:02)
[2024-05-04 04:39] LABS: Hematocrit 27.8 % (39.0-52.0); Hemoglobin 9.2 g/dL (13.0-18.0); Mean Corp Hgb Conc. 33.1 g/dL (33.0-37.0); Mean Corpuscular Volume 84.8 fL (80.0-94.0); Mean Platelet Volume 9.6 fL (7.4-10.4); Platelet Count 168 10^3/uL (130-400); Red Blood Cell Count 3.28 10^6/uL (4.70-6.10); Red Cell Dist. Width 16.9 % (11.5-14.5)
--- NOTE | 2024-05-04 05:30 | PTCARENOTE ---
Resumed care of patient @0300. Patient AAOx3, awake, playing on mobile device, denies any pain or discomfort.
[2024-05-04 07:00] VITALS: BP 121/75
[2024-05-04] MEDS: VALIUM 5 MG PO ×2 (09:25→19:51)
[2024-05-04] MEDS: DOLOPHINE 20 MG PO ×3 (09:25→22:06)
[2024-05-04] MEDS: HEPARIN 5000 UNITS SC ×2 (09:25→19:51)
[2024-05-04] MEDS: LIORESAL 20 MG PO ×2 (09:25→17:00)
[2024-05-04] MEDS: AMITIZA 24 MCG PO (09:25)
[2024-05-04] MEDS: REGLAN 5 MG PO (09:30)
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
[2024-05-04] MEDS: METAMUCIL, KONSYL 1 PACKET PO (10:16)
[2024-05-04] MEDS: NSS (PRESERVATIVE FREE) 10 ML IV (10:16)
[2024-05-04] MEDS: PROTONIX IV 40 MG IV (10:16)
[2024-05-04] MEDS: FLUSH (NSS) 2 FLUSH IV ×2 (10:17→15:39)
[2024-05-04] MEDS: REGLAN PO ×2 (12:12→17:00)
[2024-05-04 15:00] VITALS: BP 101/66
[2024-05-04] MEDS: ZANAFLEX 4 MG PO (22:06)
[2024-05-04 23:00] VITALS: BP 97/53
[2024-05-04] MEDS: LIORESAL PO (23:09)
[2024-05-05] MEDS: TYLENOL 650 MG PO (04:29)
[2024-05-05 07:20] VITALS: BP 97/63
[2024-05-05] MEDS: REGLAN 5 MG PO ×3 (07:58→16:49)
[2024-05-05] MEDS: HEPARIN 5000 UNITS SC ×2 (08:09→19:33)
[2024-05-05] MEDS: PROTONIX IV 40 MG IV (08:10)
[2024-05-05] MEDS: NSS (PRESERVATIVE FREE) 10 ML IV (08:10)
[2024-05-05] MEDS: LIORESAL 20 MG PO ×2 (08:13→17:52)
[2024-05-05] MEDS: DOLOPHINE 20 MG PO ×2 (08:13→16:49)
[2024-05-05 09:28] LABS: % Basophils 0.9 % (0-2); % Eosinophils 10.2 % (0-6); % Immature Granulocytes 0.3 % (0-0.5); % Lymphocytes 27.5 % (20.5-51.1); % Monocytes 6.7 % (1.7-9.3); % Neutrophils 54.4 % (42.2-75.2); Absolute Eosinophils 0.4 10^3/uL (0-0.7); Absolute Lymphocytes 0.9 10^3/uL (1.2-3.4); Absolute Monocytes 0.2 10^3/uL (0.1-0.6); Absolute Neutrophils 1.9 10^3/uL (1.4-6.5); Hematocrit 27.8 % (39.0-52.0); Hemoglobin 9.4 g/dL (13.0-18.0); Mean Corp Hgb Conc. 33.8 g/dL (33.0-37.0); Mean Corpuscular Volume 82.7 fL (80.0-94.0); Mean Platelet Volume 9.7 fL (7.4-10.4); Nucleated Red Blood Cells % 0 % (-); Platelet Count 152 10^3/uL (130-400); Red Blood Cell Count 3.36 10^6/uL (4.70-6.10); White Blood Cell Count 3.4 10^3/uL (4.8-10.8)
[2024-05-05 09:48] LABS: Blood Urea Nitrogen 10 mg/dl (9-20); Calcium 8.3 mg/dl (8.4-10.2); Carbon Dioxide 29 mmol/L (22-30); Chloride 105 mmol/L (98-107); Estimated Creatinine Clearance 114 ml/min; Glucose 83 mg/dl (70-99); Sodium 137 mmol/L (135-145); eGFR > 60.00
[2024-05-05] MEDS: VALIUM 5 MG PO ×2 (09:56→19:33)
[2024-05-05] MEDS: ZANAFLEX 4 MG PO ×2 (09:56→16:49)
[2024-05-05] MEDS: DILAUDID 0.5 MG IV (13:24)
[2024-05-05] MEDS: FLUSH (NSS) 2 FLUSH IV (13:26)
[2024-05-05 15:30] VITALS: BP 108/63
--- NOTE | 2024-05-05 17:51 | CM ---
DC IN Filled out transport forms to get patient home in ambulance as he uses w/c due to his paraplegia.
[2024-05-05 19:52] VITALS: BP 91/60
== END 2024-05-05 19:52 | disposition home or self-care (01) | DRG 392 ==
LOC: 3 WEST ACU 17:05
PROVIDERS: Nurse Practitioner Adult Health; Nurse Practitioner Family; Student in an Organized Health Care Education/Training Program; ADMITTING PHYSICIAN Hospitalist; ATTENDING PHYSICIAN Internal Medicine; CONSULT PHYSICIAN Internal Medicine Infectious Disease; CONSULT PHYSICIAN Surgery; EMERGENCY PHYSICIAN Emergency Medicine; FAMILY PHYSICIAN Family Medicine; OTHER PHYSICIAN Internal Medicine
DX: K31.84 Gastroparesis (principal); G82.20 Paraplegia, unspecified; F11.20 Opioid dependence, uncomplicated; C92.10 Chronic myeloid leukemia, BCR/ABL-positive, not having achieved remission; Z16.24 Resistance to multiple antibiotics; N13.6 Pyonephrosis; D61.818 Other pancytopenia; K59.2 Neurogenic bowel, not elsewhere classified; Z68.1 Body mass index [BMI] 19.9 or less, adult; D63.8 Anemia in other chronic diseases classified elsewhere; F32.A Depression, unspecified; N31.8 Other neuromuscular dysfunction of bladder; S24.102S Unspecified injury at T2-T6 level of thoracic spinal cord, sequela; I95.9 Hypotension, unspecified; S22.069S Unspecified fracture of T7-T8 vertebra, sequela; V89.2XXS Person injured in unspecified motor-vehicle accident, traffic, sequela; F41.9 Anxiety disorder, unspecified; G89.4 Chronic pain syndrome; M54.50 Low back pain, unspecified; M62.461 Contracture of muscle, right lower leg; M62.462 Contracture of muscle, left lower leg; K59.03 Drug induced constipation; R63.6 Underweight; E87.6 Hypokalemia; Z79.899 Other long term (current) drug therapy; Z93.6 Other artificial openings of urinary tract status; Z87.440 Personal history of urinary (tract) infections; Z87.81 Personal history of (healed) traumatic fracture; Z98.1 Arthrodesis status; Z88.1 Allergy status to other antibiotic agents
CPT/HCPCS: 74018; 74177; 74240; 74248; 80048; 80053; 80306; 80307; 81003; 81015; 82728; 83540; 83550; 83690; 85014; 85018; 85025; 85027; 87086; 87088; 87186; 93005; 96374; 96375; 96376; 99285; J1335; Q9967

== ENCOUNTER 2024-07-23 16:09 | Inpatient (IN) | payer MEDICARE, OTHER, SELFPAY ==
[2024-07-23] VITALS (11 sets, daily range): BP systolic 105–126; BP diastolic 76–85; BMI 17.8
[2024-07-23 11:37] LABS: Glucose - Point of Care 112 mg/dl (70-99)
[2024-07-23 12:16] LABS: % Basophils 0.4 % (0-2); % Eosinophils 0.2 % (0-6); % Immature Granulocytes 0.4 % (0-0.5); % Lymphocytes 3.3 % (20.5-51.1); % Monocytes 6.3 % (1.7-9.3); % Neutrophils 89.4 % (42.2-75.2); Absolute Basophils 0.1 10^3/uL (0-0.2); Absolute Immature Granulocytes 0.1 10^3/uL (0-0.05); Absolute Lymphocytes 0.6 10^3/uL (1.2-3.4); Absolute Monocytes 1.2 10^3/uL (0.1-0.6); Absolute Neutrophils 16.2 10^3/uL (1.4-6.5); Mean Corp Hgb Conc. 34.3 g/dL (33.0-37.0); Mean Corpuscular Hgb 27.5 pg (27.0-31.0); Mean Corpuscular Volume 80.3 fL (80.0-94.0); Mean Platelet Volume 9.3 fL (7.4-10.4); Nucleated Red Blood Cells % 0 % (-); Platelet Count 254 10^3/uL (130-400); Red Blood Cell Count 4.36 10^6/uL (4.70-6.10); Red Cell Dist. Width 15.6 % (11.5-14.5); White Blood Cell Count 18.2 10^3/uL (4.8-10.8)
[2024-07-23] MEDS: ZOFRAN 4 MG IV ×3 (12:19→22:02)
[2024-07-23 12:20] LABS: Lactic Acid 0.5 mmol/L (0.7-2.0)
[2024-07-23 12:33] LABS: ALT (SGPT) 11 U/L (0-50); AST (SGOT) 16 U/L (17-59); Albumin 3.9 g/dl (3.5-5.0); Alkaline Phosphatase 63 U/L (38-126); Blood Urea Nitrogen 18 mg/dl (9-20); Calcium 8.9 mg/dl (8.4-10.2); Carbon Dioxide 22 mmol/L (22-30); Chloride 106 mmol/L (98-107); Glucose 109 mg/dl (70-99); Potassium 3.7 mmol/L (3.5-5.1); Sodium 142 mmol/L (135-145); Total Bilirubin 1.1 mg/dl (0.2-1.3); eGFR > 60.00
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
[2024-07-23] MEDS: NSS 1000 IV ×2 (13:24→20:20)
[2024-07-23] MEDS: DILAUDID 2 MG IV (13:25)
[2024-07-23 13:58] LABS: Urine Albumin 2+ (Neg - Trace); Urine Bilirubin Negative (Negative); Urine Character Very Cloudy (Clear); Urine Color Yellow; Urine Glucose Negative (Negative); Urine Ketone Negative (Negative); Urine Leukocyte 2+ (Negative); Urine Nitrite Negative (Negative); Urine Occult Blood 2+ (Negative); Urine Specific Gravity 1.015 (<1.030); Urine Urobilinogen Negative (Neg - 1+)
[2024-07-23 14:03] LABS: COVID-19 Antigen Negative (Negative)
[2024-07-23 15:03] LABS: Urine Mucus Many
[2024-07-23 15:04] LABS: Urine Squamous Cell 0-2 /LPF (Few)
[2024-07-23 15:05] LABS: Urine White Cell >100 /HPF (0-5)
[2024-07-23 15:06] LABS: Urine Bacteria Many (Negative)
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
[2024-07-23] MEDS: MAXIPIME 2000 MG IV (16:04)
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
[2024-07-23] MEDS: DILAUDID 1 MG IV (19:01)
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
--- NOTE | 2024-07-23 20:50 | PTCARENOTE ---
Pt received from ED via stretcher. Pulled over to bed x3 without incident. Telemetry = SR w/BBC (small bursts of ST). Oriented to surroundings and plan of care discussed. Admission and assessment completed (refer to worklist). Pt refusing all
PO meds at this time 2/2 ongoing nausea and dry heaves. NSS infusing via L SubQ port. Urostomy to barton drainage bag. Call gil within reach. Plan of care ongoing.
[2024-07-23] MEDS: LOVENOX 40 MG SC (22:02)
[2024-07-23] MEDS: LIORESAL PO (22:40)
[2024-07-23] MEDS: ZANAFLEX PO (22:41)
[2024-07-23] MEDS: VALIUM PO (22:41)
[2024-07-23] MEDS: MERREM 500 MG IV (23:00)
[2024-07-23] MEDS: STERILE WATER FOR INJECTION 10 ML IV (23:00)
[2024-07-23] MEDS: BENADRYL 25 MG IV (23:07)
[2024-07-23] MEDS: DOLOPHINE PO (23:12)
[2024-07-23] MEDS: DOLOPHINE 20 MG PO (23:56)
[2024-07-23] MEDS: TYLENOL 650 MG PO (23:56)
[2024-07-24] VITALS (7 sets, daily range): BP systolic 99–131; BP diastolic 59–80; BMI 17.8
[2024-07-24] MEDS: LIORESAL 20 MG PO ×2 (00:21→22:57)
[2024-07-24] MEDS: VALIUM 5 MG PO (00:21)
[2024-07-24] MEDS: COMPAZINE 5 MG IV ×3 (00:25→13:13)
[2024-07-24] MEDS: ZANAFLEX 4 MG PO ×2 (01:10→22:54)
--- NOTE | 2024-07-24 01:10 | PTCARENOTE ---
@ 0055 pt asked RN 'why didn't you give me my zanaflex' reminder patient that he refused all PO meds. Pt now requesting zanaflex, DINESH covering [place] notified for 1x order --> zanaflex administered (refer to DEC)
@ 0020 pt continues w/nausea requesting additional antiemetic --> PRN compazine administered (refer to DEC)
@ 2349 pt c/o 'withdrawal symptoms' requesting baclofen. inquired why he feels he may be withdrawing; pt states 'from benzos' (however did not request valium) pt attempting to choose which PO meds to take, instructed that if he feels that he is
'withdrawing' then all scheduled/routine meds should be taken at this time if physically able --> PO methadone, baclofen, and valium administered (refer to DEC)
@ 2335 pt c/o 'feeling warm' removing gown and covers, axillary temp 99.8 --> PRN tylenol administered (refer to DEC)
@ 2307 pt continues with nausea, DINESH covering [place] made aware, 1x dose for benadryl and additional PRN antiemetic added (refer to DEC)
@ 2150 pt with increased nausea and approximately 200 mL bilious emesis --> PRN zofran administered (refer to DEC)
--- NOTE | 2024-07-24 02:35 | PTCARENOTE ---
Nausea appears controlled at this time, pt with no emesis/dry heaves.
[2024-07-24] MEDS: ZOFRAN 4 MG IV ×3 (04:07→18:24)
[2024-07-24] MEDS: STERILE WATER FOR INJECTION 10 ML IV ×4 (04:16→22:50)
[2024-07-24] MEDS: MERREM 500 MG IV ×4 (04:16→22:50)
[2024-07-24] MEDS: NSS 1000 IV (06:05)
[2024-07-24 06:41] LABS: Hemoglobin 10.4 g/dL (13.0-18.0); Mean Corp Hgb Conc. 33.5 g/dL (33.0-37.0); Mean Corpuscular Hgb 26.9 pg (27.0-31.0); Mean Corpuscular Volume 80.3 fL (80.0-94.0); Mean Platelet Volume 9.5 fL (7.4-10.4); Platelet Count 224 10^3/uL (130-400); Red Blood Cell Count 3.86 10^6/uL (4.70-6.10); Red Cell Dist. Width 15.6 % (11.5-14.5)
[2024-07-24 07:09] LABS: Blood Urea Nitrogen 23 mg/dl (9-20); Calcium 8.3 mg/dl (8.4-10.2); Carbon Dioxide 23 mmol/L (22-30); Chloride 108 mmol/L (98-107); Estimated Creatinine Clearance 97 ml/min; Glucose 120 mg/dl (70-99); Potassium 3.4 mmol/L (3.5-5.1); Sodium 146 mmol/L (135-145); eGFR > 60.00
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
[2024-07-24] MEDS: VALIUM INJECTION 2 MG IV ×3 (08:51→22:46)
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
[2024-07-24] MEDS: PROTONIX IV 40 MG IV (10:19)
[2024-07-24] MEDS: NSS (PRESERVATIVE FREE) 10 ML IV (10:19)
[2024-07-24] MEDS: DILAUDID 0.5 MG IV (10:24)
--- NOTE | 2024-07-24 11:33 | PTCARENOTE ---
At approximately 9am, patient vomited 120ml of coffee ground emesis. Patsy MONTIEL and Dr. Alexis made aware.
[2024-07-24] MEDS: NSS with KCL 40 MEQ 1000 IV ×2 (13:13→23:12)
[2024-07-24] MEDS: DULCOLAX 10 MG RECTAL (13:14)
[2024-07-24] MEDS: DOLOPHINE PO (13:28)
[2024-07-24] MEDS: FOLVITE PO (13:28)
[2024-07-24] MEDS: LIORESAL PO (13:29)
[2024-07-24] MEDS: PAXIL PO (13:29)
[2024-07-24] MEDS: ZANAFLEX PO (13:29)
--- NOTE | 2024-07-24 13:29 | PTCARENOTE ---
Patsy MONTIEL and Dr. Alexis aware of now brown/maroon emesis. Orders for NGT to LIWS and enemas x2 noted. Patient adamantly refuses both, reporting 'enemas don't work because I have no sphincter tone' and 'only suppositories work.' Providers made aware.
Suppository ordered for now, given, see MAR.
--- NOTE | 2024-07-24 15:44 | W.PN.ID1 ---
Date of Service
Date of Service: July 24, 2024
Today's Communication
Continue abx.
Assessment / Plan
Leukocytosis
Fever
Suspected complicated urinary tract infection
Hx ESBL E. coli
CML
T4 paraplegia
Neurogenic bladder
Chronic pain syndrome
Chronic constipation
Recommendations:
Continue with meropenem for the present.
Urine culture is pending.
Follow white count and temperature curve.
Await pending cultures. Blood cultures x 2 for temperature greater than 101 degrees.
Continue supportive care.
Further recommendations as additional data is returned.
Chief Complaint
-: UTI
Subjective / Review of Systems
Review of Systems: No Fever, No Chills and Nausea
Vital Signs / Physical Exam
Vital Signs
Vital Signs
Temp Pulse Resp BP Pulse Ox
98.0 F 62 17 112/68 95
07/24/24 15:37 07/24/24 15:37 07/24/24 15:37 07/24/24 15:37 07/24/24 15:37
Physical Exam
Constitutional: No Acute Distress, Comfortable, Chronically Ill and Non-toxic
Eyes: Sclera Anicteric
Pulmonary: Non Labored
Gastrointestinal: Non Distended
Genito-Urinary: Clear Urine and Other (urostomy to bag); Negative Turbid Urine or Hematuria
Extremities: Negative Edema
Neurological: Awake and Alert
Psychological: Calm
Objective Data
Lab Data
Lab Results
07/24/24 06:28
07/24/24 06:28
Estimated Creat Clear 97 ml/min 07/24/24 06:28
Lactic Acid Cancelled 07/23/24 15:45
Total Bilirubin 1.1 mg/dl (0.2-1.3) 07/23/24 12:01
AST 16 U/L (17-59) L 07/23/24 12:01
ALT 11 U/L (0-50) 07/23/24 12:01
Alkaline Phosphatase 63 U/L (38-126) 07/23/24 12:01
Most recent labs reviewed.
Micro Results:
07/24/24 11:40 Blood Culture - Pending
Blood/Venous
07/23/24 13:34 Urine Culture - Preliminary
Urine Escherichia coli
07/23/24 16:14 Influenza Types A & B ([facility]ORAINE) - Final
Nasal Swab Negative for Influenza A & B, NAAT
Negative results must be combined with clinical observations
and patient history.
Nucleic Acid Amplification test (NAAT)performed on the
[employer] platform.
Imaging:
07/23/2024 CXR (2 view): Cardiomediastinal silhouette is within normal limits. Left subclavian chest port tip projects over the mid right atrium. Thoracic spinal fixation rods unchanged. No pneumonia, pleural effusion or pneumothorax noted.
Please see full dictation for additional detail.
[2024-07-24] MEDS: DOLOPHINE 20 MG PO ×2 (16:36→22:54)
[2024-07-24] MEDS: LOVENOX 40 MG SC (16:38)
--- NOTE | 2024-07-24 21:30 | PTCARENOTE ---
@2100;Pt vomited approx 150ml of medium brown liquid vomitus.Pt continues to declined enemas, HS supossitory this evening and [facility] sump placement.
[2024-07-25] VITALS (8 sets, daily range): BP systolic 74–115; BP diastolic 41–76
--- NOTE | 2024-07-25 03:35 | W.PN.UPDATE ---
Update Note
Progress Note Update
Manual BP 80's/50, 68, 18, 98% 95, Patient asymptomatic. Reports she has been hypotense before. Stable VS upon arrival. Patient did received baclofen, Valium 2mg, Tinzidine 4mg, and Baclofen 2o mg. Will give one 500 NSS bolus and check again.
[2024-07-25] MEDS: MERREM 500 MG IV ×4 (04:00→23:54)
[2024-07-25] MEDS: NSS 500 IV ×2 (04:00→12:49)
[2024-07-25] MEDS: STERILE WATER FOR INJECTION 10 ML IV ×4 (04:01→23:54)
[2024-07-25] MEDS: NSS (PRESERVATIVE FREE) 10 ML IV (08:41)
[2024-07-25] MEDS: PAXIL 20 MG PO (08:41)
[2024-07-25] MEDS: PROTONIX IV 40 MG IV (08:41)
[2024-07-25] MEDS: DOLOPHINE 20 MG PO ×2 (08:41→17:03)
[2024-07-25] MEDS: LIORESAL 20 MG PO ×2 (08:42→21:57)
[2024-07-25] MEDS: FOLVITE 1 MG PO (08:42)
[2024-07-25] MEDS: ZANAFLEX 4 MG PO ×2 (08:43→23:54)
[2024-07-25] MEDS: VALIUM INJECTION IV (08:43)
[2024-07-25] MEDS: ZOFRAN 4 MG IV (08:49)
[2024-07-25] MEDS: NSS with KCL 40 MEQ 1000 IV ×2 (08:54→17:38)
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
--- NOTE | 2024-07-25 10:33 | PN.CDI ---
CDI
- -
CDI:
Physician Documentation Request
Admit Date: 07/23/24 16:09
Dear Doctor Reuben,
Please review the following and provide your response in the progress notes.
Clinical Indicators:
Height: 5ft 11 in
Weight: 137 9 .6 oz
BMI: 17.8
Other Clinical Notes: Nutrition note, ' CBW: 127 lbs 9.6 oz BMI 17.8 underweight range, 07/23.
Pts weight previous admission listed as 130 lbs 04/30 reflective of 3 lb (2%) in three months. ....'
If possible, please provide an associated diagnosis related to the abnormal BMI, such as:
BMI < or = to 19
Underweight
Cachectic
- Other
Use of terms such as suspected, likely, concern for, or probable (associated with a specific diagnosis that is being evaluated, monitored, or treated as if it exists) are acceptable and can be coded in the inpatient setting, when documented at the
time of discharge.
Thank you,
Padmini Ching RN
CDI Specialist
[place] [facility]
Please use your independent medical judgment in providing your response.
--- NOTE | 2024-07-25 11:25 | W.PN.ID1 ---
Date of Service
Date of Service: July 25, 2024
Today's Communication
Continue meropenem.
Assessment / Plan
Leukocytosis
Fever
Suspected complicated urinary tract infection
Hx ESBL E. coli
CML
T4 paraplegia
Neurogenic bladder
Chronic pain syndrome
Chronic constipation
Recommendations:
Continue with meropenem for the present.
Urine culture with ESBL E. coli.
Follow white count and temperature curve.
Await pending cultures.
Continue supportive care.
����������������������������������������������������������
Chief Complaint
-: UTI
Subjective / Review of Systems
Patient seen and examined. Reports overall feeling improved today. Notes nausea also improved today. Denies fevers or chills.
Vital Signs / Physical Exam
Vital Signs
Vital Signs
Temp Pulse Resp BP Pulse Ox
97.9 F 95 17 107/60 100
07/25/24 07:00 07/25/24 07:00 07/25/24 07:00 07/25/24 07:00 07/25/24 07:00
Physical Exam
Constitutional: No Acute Distress, Comfortable and Chronically Ill
Eyes: Sclera Anicteric
Cardiovascular: S1/S2; Negative S3/S4
Pulmonary: Non Labored
Gastrointestinal: Non Distended
Genito-Urinary: Clear Urine and Other (urostomy to collection bag); Negative Turbid Urine or Hematuria
Neurological: Awake and Alert
Psychological: Calm
Objective Data
Lab Data
Estimated Creat Clear 97 ml/min 07/24/24 06:28
Lactic Acid Cancelled 07/23/24 15:45
Total Bilirubin 1.1 mg/dl (0.2-1.3) 07/23/24 12:01
AST 16 U/L (17-59) L 07/23/24 12:01
ALT 11 U/L (0-50) 07/23/24 12:01
Alkaline Phosphatase 63 U/L (38-126) 07/23/24 12:01
Most recent labs reviewed.
Micro Results:
07/23/24 13:34 Urine Culture - Final
Urine Escherichia coli - ESBL
07/24/24 11:40 Blood Culture - Pending
Blood/Venous
07/23/24 16:14 Influenza Types A & B (LORAINE) - Final
Nasal Swab Negative for Influenza A & B, NAAT
Negative results must be combined with clinical observations
and patient history.
Nucleic Acid Amplification test (NAAT)performed on the
[employer] platform.
Imaging:
07/23/2024 CXR (2 view): Cardiomediastinal silhouette is within normal limits. Left subclavian chest port tip projects over the mid right atrium. Thoracic spinal fixation rods unchanged. No pneumonia, pleural effusion or pneumothorax noted.
Please see full dictation for additional detail.
[2024-07-25 11:29] LABS: Hematocrit 23.1 % (39.0-52.0); Hemoglobin 7.4 g/dL (13.0-18.0); Mean Corpuscular Hgb 26.5 pg (27.0-31.0); Mean Corpuscular Volume 82.8 fL (80.0-94.0); Mean Platelet Volume 9.2 fL (7.4-10.4); Platelet Count 175 10^3/uL (130-400); Red Blood Cell Count 2.79 10^6/uL (4.70-6.10); White Blood Cell Count 9.2 10^3/uL (4.8-10.8)
[2024-07-25 12:41] LABS: Blood Urea Nitrogen 26 mg/dl (9-20); Calcium 7.5 mg/dl (8.4-10.2); Carbon Dioxide 18 mmol/L (22-30); Chloride 117 mmol/L (98-107); Estimated Creatinine Clearance 97 ml/min; Glucose 110 mg/dl (70-99); Potassium 3.8 mmol/L (3.5-5.1); Sodium 145 mmol/L (135-145); eGFR > 60.00
[2024-07-25] MEDS: ProAmatine 2.5 MG PO (12:49)
--- NOTE | 2024-07-25 15:43 | CM ---
LUIS M received voicemail from a nurse navigator from [facility] stating pt was referred to [facility] for home care and was accepted.
CM will follow up w/ [facility] re [facility].
CM will cont. to follow for d/c planning
Nurse navigator @ [facility],
Plan: Home w/ [facility]
[2024-07-25] MEDS: VALIUM INJECTION 2 MG IV (17:03)
[2024-07-25] MEDS: LOVENOX 40 MG SC (17:13)
[2024-07-25 21:40] LABS: Glucose - Point of Care 107 mg/dl (70-99)
[2024-07-26] MEDS: VALIUM INJECTION 2 MG IV ×4 (00:07→21:13)
[2024-07-26] MEDS: DOLOPHINE 20 MG PO ×3 (00:08→21:12)
[2024-07-26 03:30] VITALS: BP 80/51
--- NOTE | 2024-07-26 03:59 | W.PN.UPDATE ---
Update Note
Progress Note Update
BP 80/51, HR 63 RR 16, POx RA 99%, patient asymptomatic. will order 500 NSS IV bolus, + Midodrine 2.5mg PO stat. Hypotensive likely due to Medications.
[2024-07-26] MEDS: NSS 500 IV (04:38)
[2024-07-26] MEDS: MERREM 500 MG IV ×4 (04:38→21:12)
[2024-07-26] MEDS: STERILE WATER FOR INJECTION 10 ML IV ×4 (04:38→21:12)
[2024-07-26] MEDS: ProAmatine 2.5 MG PO ×3 (04:40→13:32)
[2024-07-26] MEDS: NSS with KCL 40 MEQ 1000 IV ×2 (04:41→16:06)
[2024-07-26 08:04] VITALS: BP 107/63
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
[2024-07-26] MEDS: FOLVITE 1 MG PO (09:34)
[2024-07-26] MEDS: LIORESAL 20 MG PO ×2 (09:34→21:13)
[2024-07-26] MEDS: DULCOLAX PO ×2 (09:35→10:04)
[2024-07-26] MEDS: PROTONIX IV 40 MG IV (09:35)
[2024-07-26] MEDS: NSS (PRESERVATIVE FREE) 10 ML IV (09:35)
[2024-07-26] MEDS: PAXIL 20 MG PO (09:35)
[2024-07-26] MEDS: ZANAFLEX PO ×2 (09:40→21:28)
[2024-07-26] MEDS: ZOFRAN 4 MG IV (10:27)
--- NOTE | 2024-07-26 13:39 | W.PN.ID1 ---
Date of Service
Date of Service: July 26, 2024
Today's Communication
Continue antibiotics.
Assessment / Plan
Leukocytosis
Fever
Suspected complicated urinary tract infection
Hx ESBL E. coli
CML
T4 paraplegia
Neurogenic bladder
Chronic pain syndrome
Chronic constipation
Recommendations:
White count improved. Patient clinically overall improved.
Urine culture with ESBL E. coli. Blood cultures NGTD
Continue with meropenem (d#4) for the present. Would anticipate a 10-day course of antibiotics. May transition to once daily ertapenem at discharge for outpatient infusion.
Follow white count and temperature curve.
Continue supportive care.
����������������������������������������������������������
Chief Complaint
-: UTI
Subjective / Review of Systems
Review of Systems: No Fever
Vital Signs / Physical Exam
Vital Signs
Vital Signs
Temp Pulse Resp BP Pulse Ox
97.9 F 75 18 107/63 99
07/26/24 08:04 07/26/24 08:04 07/26/24 08:04 07/26/24 08:04 07/26/24 08:04
Physical Exam
Constitutional: No Acute Distress, Comfortable and Chronically Ill
Eyes: Sclera Anicteric
Cardiovascular: S1/S2; Negative S3/S4
Pulmonary: Non Labored
Gastrointestinal: Non Distended
Genito-Urinary: Clear Urine and Other (urostomy to collection bag); Negative Turbid Urine or Hematuria
Neurological: Awake and Alert
Psychological: Calm
Objective Data
Lab Data
Lab Results
07/25/24 10:59
07/25/24 10:59
Estimated Creat Clear 97 ml/min 07/25/24 10:59
Lactic Acid Cancelled 07/23/24 15:45
Total Bilirubin 1.1 mg/dl (0.2-1.3) 07/23/24 12:01
AST 16 U/L (17-59) L 07/23/24 12:01
ALT 11 U/L (0-50) 07/23/24 12:01
Alkaline Phosphatase 63 U/L (38-126) 07/23/24 12:01
Most recent labs reviewed.
Micro Results:
07/24/24 11:40 Blood Culture - Preliminary
Blood/Venous No Growth in 48 hours- Final report to follow
07/23/24 13:34 Urine Culture - Final
Urine Escherichia coli - ESBL
07/23/24 16:14 Influenza Types A & B (LORAINE) - Final
Nasal Swab Negative for Influenza A & B, NAAT
Negative results must be combined with clinical observations
and patient history.
Nucleic Acid Amplification test (NAAT)performed on the
[employer] platform.
Imaging:
07/23/2024 CXR (2 view): Cardiomediastinal silhouette is within normal limits. Left subclavian chest port tip projects over the mid right atrium. Thoracic spinal fixation rods unchanged. No pneumonia, pleural effusion or pneumothorax noted.
Please see full dictation for additional detail.
--- NOTE | 2024-07-26 14:28 | CM ---
CM made TC to [facility] to confirm acceptance of services.
CM spoke with Raisa ([phone]) who confirmed pt has been accepted and awaiting paperwork.
Fax paperwork prior to pt d/c.
[facility]: .
Plan: Home w/ [facility]
[2024-07-26 16:48] VITALS: BP 137/81
[2024-07-26] MEDS: COMPAZINE 5 MG IV (17:42)
[2024-07-26] MEDS: DOLOPHINE PO (17:42)
[2024-07-26] MEDS: ProAmatine PO (17:42)
[2024-07-26] MEDS: LOVENOX 40 MG SC (17:47)
--- NOTE | 2024-07-26 18:32 | PTCARENOTE ---
patient refusing oral Dulcolax this am. administered with PRN Zofran with some relief. at 1742, patient dry heaving administered PRN Compazine. patient asleep afterwards. did discuss risks/benefits of refusing bowel regimen medications, but
patient verbalized that enemas don't work for him due to lack of anal sphincter, refuses oral laxatives, but will take suppositories ONLY. IVF's maintained, vss, will continue to monitor.
[2024-07-26 19:41] VITALS: BP 150/98
[2024-07-26 23:31] VITALS: BP 128/83
--- NOTE | 2024-07-27 00:05 | PTCARENOTE ---
Pt began calling out for RN, this RN went to see what was going on. Pt stated 'all of a sudden I don't feel right, something feels wrong'. This RN asked orientation questions and got a BP. BP was 111/78. SUPERVISOR INTELLIGENCE ANALYST was made aware and suggested getting
0600 labs drawn early. He stated 'when I need blood this is normally how I feel'. This RN reviewed lab results, hgb level went up from previous results. Pt started to complain of pain 07/03 throughout. This RN gave prn medication, see MAR. Will
continue to monitor, call gil in reach.
[2024-07-27 00:46] LABS: Hematocrit 25.5 % (39.0-52.0); Hemoglobin 8.3 g/dL (13.0-18.0); Mean Corp Hgb Conc. 32.5 g/dL (33.0-37.0); Mean Corpuscular Hgb 26.6 pg (27.0-31.0); Mean Corpuscular Volume 81.7 fL (80.0-94.0); Mean Platelet Volume 8.9 fL (7.4-10.4); Platelet Count 165 10^3/uL (130-400); Red Blood Cell Count 3.12 10^6/uL (4.70-6.10); Red Cell Dist. Width 15.7 % (11.5-14.5); White Blood Cell Count 5.9 10^3/uL (4.8-10.8)
[2024-07-27 01:07] LABS: Blood Urea Nitrogen 10 mg/dl (9-20); Calcium 7.4 mg/dl (8.4-10.2); Carbon Dioxide 20 mmol/L (22-30); Chloride 118 mmol/L (98-107); Estimated Creatinine Clearance 111 ml/min; Glucose 124 mg/dl (70-99); Potassium 4.6 mmol/L (3.5-5.1); Sodium 146 mmol/L (135-145); eGFR > 60.00
[2024-07-27] MEDS: NSS with KCL 40 MEQ 1000 IV (02:30)
[2024-07-27] MEDS: DILAUDID 0.5 MG IV (03:03)
[2024-07-27 03:05] VITALS: BP 125/88
[2024-07-27] MEDS: MERREM 500 MG IV ×2 (04:16→09:45)
[2024-07-27] MEDS: STERILE WATER FOR INJECTION 10 ML IV ×2 (04:16→09:46)
[2024-07-27 07:20] VITALS: BP 127/79
[2024-07-27] MEDS: DULCOLAX 10 MG RECTAL (07:33)
[2024-07-27] MEDS: VALIUM INJECTION 2 MG IV ×3 (07:46→21:44)
[2024-07-27] MEDS: DOLOPHINE 20 MG PO ×3 (07:46→21:44)
[2024-07-27] MEDS: ZANAFLEX 4 MG PO ×2 (07:47→21:40)
[2024-07-27] MEDS: PROTONIX IV 40 MG IV (07:47)
[2024-07-27] MEDS: ProAmatine 2.5 MG PO (07:47)
[2024-07-27] MEDS: NSS (PRESERVATIVE FREE) 10 ML IV (07:47)
[2024-07-27] MEDS: LIORESAL 20 MG PO (07:48)
[2024-07-27] MEDS: FOLVITE 1 MG PO (07:48)
[2024-07-27] MEDS: DULCOLAX 10 MG PO (07:48)
[2024-07-27] MEDS: PAXIL 20 MG PO (07:49)
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
--- NOTE | 2024-07-27 09:00 | CM ---
Plan: Discharge to Home when medically stable with [facility]
Referral sent via [employer]
[2024-07-27 11:05] VITALS: BP 141/52
[2024-07-27] MEDS: ProAmatine PO ×3 (12:43→16:57)
[2024-07-27] MEDS: ZOFRAN 4 MG IV (13:48)
--- NOTE | 2024-07-27 14:00 | W.PN.ID1 ---
Date of Service
Date of Service: July 27, 2024
Today's Communication
Transition to IV doxycycline.
Assessment / Plan
Leukocytosis
Fever
Complicated urinary tract infection
Hx ESBL E. coli
Marked nausea
CML
T4 paraplegia
Neurogenic bladder
Chronic pain syndrome
Chronic constipation
Recommendations:
White count improved. Patient clinically overall improved.
Urine culture with ESBL E. coli. Blood cultures NGTD
Currently meropenem (d#5)
Somewhat concerned about the apparent twitching seen on physical exam. Possibly secondary to meropenem.
Will transition to IV doxycycline, to which the recovered ESBL E. coli is also susceptible to.
If nausea persist, may need further abdominal imaging
Follow white count and temperature curve.
Continue supportive care.
����������������������������������������������������������
Chief Complaint
-: UTI
Subjective / Review of Systems
Patient seen and examined. Reports not feeling well today. Reports significant nausea, but no vomiting as of yet. Denies abdominal pain.
Vital Signs / Physical Exam
Vital Signs
Vital Signs
Temp Pulse Resp BP Pulse Ox
97.8 F 72 16 141/52 95
07/27/24 11:05 07/27/24 11:05 07/27/24 11:05 07/27/24 11:05 07/27/24 11:05
Physical Exam
Constitutional: Comfortable, Chronically Ill and Non-toxic
Eyes: Sclera Anicteric
Cardiovascular: S1/S2; Negative S3/S4
Pulmonary: Non Labored
Gastrointestinal: Soft, Non Distended, Decreased Bowel Sounds and No Rebound
Neurological: Awake, Alert and Other (? muscle twitching (noted in upper extreamities)); Negative Meningeal Signs
Psychological: Calm
Objective Data
Lab Data
Lab Results
07/27/24 00:38
07/27/24 00:38
Estimated Creat Clear 111 ml/min 07/27/24 00:38
Lactic Acid Cancelled 07/23/24 15:45
Total Bilirubin 1.1 mg/dl (0.2-1.3) 07/23/24 12:01
AST 16 U/L (17-59) L 07/23/24 12:01
ALT 11 U/L (0-50) 07/23/24 12:01
Alkaline Phosphatase 63 U/L (38-126) 07/23/24 12:01
Most recent labs reviewed.
Micro Results:
07/24/24 11:40 Blood Culture - Preliminary
Blood/Venous No Growth in 72 hours- Final report to follow
07/23/24 13:34 Urine Culture - Final
Urine Escherichia coli - ESBL
07/23/24 16:14 Influenza Types A & B (LORAINE) - Final
Nasal Swab Negative for Influenza A & B, NAAT
Negative results must be combined with clinical observations
and patient history.
Nucleic Acid Amplification test (NAAT)performed on the
[employer] platform.
Imaging:
07/23/2024 CXR (2 view): Cardiomediastinal silhouette is within normal limits. Left subclavian chest port tip projects over the mid right atrium. Thoracic spinal fixation rods unchanged. No pneumonia, pleural effusion or pneumothorax noted.
Please see full dictation for additional detail.
Care Review
Plan reviewed with: Other (Clinical ID Pharmacist)
[2024-07-27] MEDS: VIBRAMYCIN 260 MG IV ×2 (14:11→21:47)
[2024-07-27 15:05] VITALS: BP 165/91
[2024-07-27] MEDS: VALIUM INJECTION IV (16:03)
[2024-07-27] MEDS: DOLOPHINE PO (16:03)
[2024-07-27] MEDS: LOVENOX 40 MG SC (16:57)
[2024-07-27 19:40] VITALS: BP 141/85
[2024-07-27 23:40] VITALS: BP 138/84
[2024-07-28] MEDS: LIORESAL 20 MG PO ×3 (00:11→20:00)
[2024-07-28 03:11] VITALS: BP 136/80
[2024-07-28] MEDS: DILAUDID 0.5 MG IV ×3 (04:37→21:14)
[2024-07-28 07:00] VITALS: BP 132/86
[2024-07-28] MEDS: NSS (PRESERVATIVE FREE) 10 ML IV (08:28)
[2024-07-28] MEDS: PROTONIX IV 40 MG IV (08:28)
[2024-07-28] MEDS: PAXIL 20 MG PO (08:28)
[2024-07-28] MEDS: DOLOPHINE 20 MG PO ×3 (08:28→22:27)
[2024-07-28] MEDS: ZANAFLEX 4 MG PO ×2 (08:28→22:27)
[2024-07-28] MEDS: DULCOLAX 10 MG PO (08:28)
[2024-07-28] MEDS: FOLVITE 1 MG PO (08:28)
[2024-07-28] MEDS: VIBRAMYCIN 260 MG IV ×2 (08:29→20:00)
[2024-07-28] MEDS: VALIUM INJECTION 2 MG IV ×3 (08:29→22:27)
[2024-07-28] MEDS: ProAmatine PO ×3 (08:31→17:12)
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
[2024-07-28 11:00] VITALS: BP 127/85
[2024-07-28 15:00] VITALS: BP 119/73
[2024-07-28] MEDS: LOVENOX 40 MG SC (17:12)
[2024-07-28 23:25] VITALS: BP 107/69
[2024-07-29] MEDS: DILAUDID 0.5 MG IV ×2 (03:57→10:25)
[2024-07-29 04:00] VITALS: BP 108/71
[2024-07-29 05:00] LABS: Hematocrit 23.9 % (39.0-52.0); Hemoglobin 7.6 g/dL (13.0-18.0); Mean Corp Hgb Conc. 31.8 g/dL (33.0-37.0); Mean Corpuscular Hgb 25.5 pg (27.0-31.0); Mean Corpuscular Volume 80.2 fL (80.0-94.0); Mean Platelet Volume 9.7 fL (7.4-10.4); Platelet Count 167 10^3/uL (130-400); Red Blood Cell Count 2.98 10^6/uL (4.70-6.10); Red Cell Dist. Width 14.9 % (11.5-14.5); White Blood Cell Count 4.6 10^3/uL (4.8-10.8)
[2024-07-29 05:26] LABS: Blood Urea Nitrogen 10 mg/dl (9-20); Calcium 7.2 mg/dl (8.4-10.2); Carbon Dioxide 24 mmol/L (22-30); Chloride 112 mmol/L (98-107); Estimated Creatinine Clearance 111 ml/min; Glucose 94 mg/dl (70-99); Phosphorus 1.6 mg/dl (2.5-4.5); Potassium 3.2 mmol/L (3.5-5.1); Sodium 144 mmol/L (135-145); eGFR > 60.00
[2024-07-29] MEDS: VIBRAMYCIN 260 MG IV (07:53)
[2024-07-29] MEDS: VALIUM INJECTION 2 MG IV (07:55)
[2024-07-29] MEDS: DULCOLAX 10 MG PO (07:56)
[2024-07-29] MEDS: DOLOPHINE 20 MG PO ×2 (07:56→15:56)
[2024-07-29] MEDS: PAXIL 20 MG PO (07:56)
[2024-07-29] MEDS: LIORESAL 20 MG PO ×2 (07:57→20:11)
[2024-07-29] MEDS: ZANAFLEX PO ×3 (07:57→20:11)
[2024-07-29] MEDS: ProAmatine PO ×2 (07:57→08:08)
[2024-07-29] MEDS: FOLVITE 1 MG PO (07:57)
[2024-07-29] MEDS: NSS (PRESERVATIVE FREE) 10 ML IV (08:01)
[2024-07-29] MEDS: PROTONIX IV 40 MG IV (08:01)
[2024-07-29 08:05] VITALS: BP 115/70
[2024-07-29] MEDS: ZANAFLEX 4 MG PO (10:29)
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
[2024-07-29] MEDS: POTASSIUM PHOSPHATE 259.0909 MEQ IV (12:58)
--- NOTE | 2024-07-29 13:57 | PTCARENOTE ---
Per hospital protocol, pt placed on tele for administration of potassium chloride.
[2024-07-29 15:53] VITALS: BP 122/75
[2024-07-29] MEDS: LOVENOX 40 MG SC (17:33)
[2024-07-29 19:30] VITALS: BP 131/80
[2024-07-29] MEDS: VIBRAMYCIN 100 MG PO (20:11)
[2024-07-29] MEDS: DILAUDID 0.25 MG IV (20:11)
[2024-07-29] MEDS: MAALOX 30 ML PO (22:04)
[2024-07-29] MEDS: ZOFRAN 4 MG IV (22:04)
[2024-07-29 23:35] VITALS: BP 129/77
[2024-07-30] MEDS: DILAUDID 0.25 MG IV ×2 (00:02→12:53)
[2024-07-30] MEDS: ZANAFLEX 4 MG PO (00:03)
[2024-07-30 03:10] VITALS: BP 105/71
[2024-07-30] MEDS: DOLOPHINE PO (04:46)
[2024-07-30 07:00] LABS: Blood Urea Nitrogen 15 mg/dl (9-20); Calcium 7.1 mg/dl (8.4-10.2); Carbon Dioxide 25 mmol/L (22-30); Chloride 113 mmol/L (98-107); Estimated Creatinine Clearance 111 ml/min; Glucose 103 mg/dl (70-99); Phosphorus 2.3 mg/dl (2.5-4.5); Potassium 3.6 mmol/L (3.5-5.1); Sodium 144 mmol/L (135-145); eGFR > 60.00
[2024-07-30 08:29] VITALS: BP 115/75
[2024-07-30] MEDS: VIBRAMYCIN 100 MG PO (08:43)
[2024-07-30] MEDS: FOLVITE 1 MG PO (08:43)
[2024-07-30] MEDS: PROTONIX 40 MG PO (08:43)
[2024-07-30] MEDS: DOLOPHINE 20 MG PO ×2 (08:43→16:09)
[2024-07-30] MEDS: LIORESAL 20 MG PO (08:44)
[2024-07-30] MEDS: DULCOLAX PO (08:49)
[2024-07-30] MEDS: ZANAFLEX PO (08:50)
[2024-07-30] MEDS: PAXIL PO (08:50)
[2024-07-30] MEDS: ZOFRAN 4 MG IV (09:40)
[2024-07-30 11:26] VITALS: BP 117/79
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
--- NOTE | 2024-07-30 14:23 | CM ---
Addendum entered by Gely Bond RN 07/30/24 16:18:
Advanced directive copies x2 given as per moms request.
Addendum entered by Gely Bond RN 07/30/24 16:16:
Medical nec form completed for ambulance as per pt and moms request.
IMM reviewed and signed on chart.
Original Note:
Spoke with pt and his mom Cheyenne [phone] both said they did not want home care.
As per MD jay on po abx,
Mom said she can take him home and care for him at dc.
IMM letter given to review.
PLAN changed to home with no VN
--- NOTE | 2024-07-30 14:58 | W.DS.TRANS ---
DC Summary - [facility] [place]
-
Discharge Instructions:
Discharge Diagnosis/Procedures ESBL UTI, constipation
Diet Regular
Activity As tolerated
Instructions:
Stand-Alone Forms:
Changes to Home Medications: No
Discharge Medications:
DC Medications w/original date entered in [employer]
baclofen 20 mg tablet 20 mg PO BID Muscle Spasms 02/09/23
dasatinib 50 mg tablet (Sprycel) 50 mg PO DAILY LEUKEMIA 02/09/23
diazepam 5 mg tablet 5 mg PO BID Muscle Spasms 02/09/23
hydromorphone 4 mg tablet (Dilaudid) 4 mg PO Q8HPRN PRN severe pain 02/09/23
methadone 10 mg tablet 20 mg PO TID Pain 02/09/23
tizanidine 4 mg tablet 4 mg PO BID Muscle Spasms 01/31/24
bisacodyl 10 mg rectal suppository 10 mg VT Q48H Constipation #30 ea 02/02/24
acetaminophen 325 mg tablet (Tylenol) 650 mg PO Q6HPRN PRN headache/mild pain 07/23/24
folic acid 1 mg tablet 1 mg PO DAILY Supplement 07/23/24
metoclopramide HCl 10 mg tablet 10 mg PO AC Gastrointestinal Issue 07/23/24
paroxetine HCl 20 mg tablet 20 mg PO DAILY Depression 07/23/24
doxycycline hyclate 100 mg capsule 100 mg PO BID #5 caps 07/30/24
pantoprazole 40 mg tablet,delayed release 40 mg PO DAILY #30 tabs 07/30/24
Home Medication Changes
Pending Results: No
Total time spent discharging patient (in min): 42
[2024-07-30 15:18] VITALS: BP 132/82
--- NOTE | 2024-07-30 15:50 | W.PN.ID1 ---
Date of Service
Date of Service: July 30, 2024
Today's Communication
Continue abx.
Assessment / Plan
Leukocytosis
Fever
Complicated urinary tract infection 2* ESBL E. coli
Nausea
- improved
CML
T4 paraplegia
Neurogenic bladder
Chronic pain syndrome
Chronic constipation
Recommendations:
White count improved. Patient clinically overall improved.
Urine culture with ESBL E. coli. Blood cultures NGTD
Nausea has improved. Has been transitioned to oral doxy. Continue for 3 additional days.
Follow white count and temperature curve.
Continue supportive care.
����������������������������������������������������������
Chief Complaint
-: UTI
Subjective / Review of Systems
Review of Systems: No Fever, No Chills and Nausea (improved)
Vital Signs / Physical Exam
Vital Signs
Vital Signs
Temp Pulse Resp BP Pulse Ox
98.6 F 87 16 132/82 97
07/30/24 15:18 07/30/24 15:18 07/30/24 15:18 07/30/24 15:18 07/30/24 15:18
Physical Exam
Constitutional: Comfortable, Chronically Ill, Non-toxic and Cachetic
Eyes: Sclera Anicteric
Pulmonary: Non Labored
Gastrointestinal: Non Distended
Genito-Urinary: Other (urostomy to barton bag)
Neurological: Awake and Alert
Psychological: Calm
Objective Data
Lab Data
Lab Results
07/29/24 04:11
07/30/24 06:22
Estimated Creat Clear 111 ml/min 07/30/24 06:22
Lactic Acid Cancelled 07/23/24 15:45
Total Bilirubin 1.1 mg/dl (0.2-1.3) 07/23/24 12:01
AST 16 U/L (17-59) L 07/23/24 12:01
ALT 11 U/L (0-50) 07/23/24 12:01
Alkaline Phosphatase 63 U/L (38-126) 07/23/24 12:01
Most recent labs reviewed.
Micro Results:
07/24/24 11:40 Blood Culture - Final
Blood/Venous No Growth - Final Report
07/23/24 13:34 Urine Culture - Final
Urine Escherichia coli - ESBL
07/23/24 16:14 Influenza Types A & B (LORAINE) - Final
Nasal Swab Negative for Influenza A & B, NAAT
Negative results must be combined with clinical observations
and patient history.
Nucleic Acid Amplification test (NAAT)performed on the
[employer] platform.
Imaging:
07/23/2024 CXR (2 view): Cardiomediastinal silhouette is within normal limits. Left subclavian chest port tip projects over the mid right atrium. Thoracic spinal fixation rods unchanged. No pneumonia, pleural effusion or pneumothorax noted.
Please see full dictation for additional detail.
Care Review
Plan reviewed with: Physician (Hospitalist)
== END 2024-07-30 18:42 | disposition home or self-care (01) | DRG 872 ==
LOC: 3 WEST ACU 16:09
PROVIDERS: Internal Medicine; Physician Assistant Medical; ADMITTING PHYSICIAN Internal Medicine; ATTENDING PHYSICIAN Internal Medicine; CONSULT PHYSICIAN Internal Medicine Infectious Disease; EMERGENCY PHYSICIAN Emergency Medicine; FAMILY PHYSICIAN Family Medicine; OTHER PHYSICIAN Internal Medicine Gastroenterology
DX: A41.9 Sepsis, unspecified organism (principal); C92.10 Chronic myeloid leukemia, BCR/ABL-positive, not having achieved remission; E87.0 Hyperosmolality and hypernatremia; F11.20 Opioid dependence, uncomplicated; G82.20 Paraplegia, unspecified; K56.7 Ileus, unspecified; N39.0 Urinary tract infection, site not specified; Z16.12 Extended spectrum beta lactamase (ESBL) resistance; K31.1 Adult hypertrophic pyloric stenosis; Z68.1 Body mass index [BMI] 19.9 or less, adult; R64 Cachexia; F32.A Depression, unspecified; S24.102S Unspecified injury at T2-T6 level of thoracic spinal cord, sequela; E83.39 Other disorders of phosphorus metabolism; E86.0 Dehydration; E87.6 Hypokalemia; G89.4 Chronic pain syndrome; K31.84 Gastroparesis; M24.50 Contracture, unspecified joint; N31.9 Neuromuscular dysfunction of bladder, unspecified; B96.20 Unspecified Escherichia coli [E. coli] as the cause of diseases classified elsewhere; M62.838 Other muscle spasm; I95.89 Other hypotension; I95.2 Hypotension due to drugs; T40.605A Adverse effect of unspecified narcotics, initial encounter; R63.6 Underweight; R51.9 Headache, unspecified; Z53.20 Procedure and treatment not carried out because of patient's decision for unspecified reasons; S22.049S Unspecified fracture of fourth thoracic vertebra, sequela; V89.2XXS Person injured in unspecified motor-vehicle accident, traffic, sequela; Z79.899 Other long term (current) drug therapy; Z91.81 History of falling; Z74.01 Bed confinement status; Z87.440 Personal history of urinary (tract) infections; Z90.6 Acquired absence of other parts of urinary tract; Z93.6 Other artificial openings of urinary tract status; Z98.1 Arthrodesis status; Z88.1 Allergy status to other antibiotic agents
CPT/HCPCS: 71046; 74022; 80048; 80053; 81003; 81015; 82962; 83605; 84100; 85025; 85027; 87040; 87086; 87088; 87186; 87502; 87811; 93005; 96361; 96374; 96375; 99285

== ENCOUNTER 2024-10-30 11:22 | Inpatient (IN) | payer OTHER, SELFPAY ==
[2024-10-30] VITALS (18 sets, daily range): BP systolic 69–129; BP diastolic 45–90
[2024-10-30] MEDS: ZOFRAN 4 MG IV ×4 (06:00→23:24)
[2024-10-30 06:11] LABS: % Immature Granulocytes 0.1 % (0-0.5); % Lymphocytes 6.3 % (20.5-51.1); % Monocytes 3.7 % (1.7-9.3); % Neutrophils 89.9 % (42.2-75.2); Absolute Lymphocytes 0.5 10^3/uL (1.2-3.4); Absolute Monocytes 0.3 10^3/uL (0.1-0.6); Absolute Neutrophils 6.6 10^3/uL (1.4-6.5); Hematocrit 36.1 % (39.0-52.0); Hemoglobin 12.3 g/dL (13.0-18.0); Mean Corp Hgb Conc. 34.1 g/dL (33.0-37.0); Mean Corpuscular Hgb 26.7 pg (27.0-31.0); Mean Corpuscular Volume 78.5 fL (80.0-94.0); Mean Platelet Volume 9.4 fL (7.4-10.4); Nucleated Red Blood Cells % 0 % (-); Platelet Count 224 10^3/uL (130-400); Red Cell Dist. Width 15.2 % (11.5-14.5); White Blood Cell Count 7.3 10^3/uL (4.8-10.8)
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
[2024-10-30 06:24] LABS: COVID-19 Antigen Positive (Negative)
[2024-10-30] MEDS: OFIRMEV 100 IV (06:27)
[2024-10-30 06:33] LABS: ALT (SGPT) 13 U/L (0-50); AST (SGOT) 17 U/L (17-59); Albumin 4.1 g/dl (3.5-5.0); Alkaline Phosphatase 61 U/L (38-126); Blood Urea Nitrogen 24 mg/dl (9-20); Calcium 8.4 mg/dl (8.4-10.2); Carbon Dioxide 24 mmol/L (22-30); Chloride 102 mmol/L (98-107); Glucose 153 mg/dl (70-99); Lipase 184 U/L (23-300); Potassium 3.3 mmol/L (3.5-5.1); Sodium 141 mmol/L (135-145); Total Bilirubin 1.1 mg/dl (0.2-1.3); Total Protein 7.2 g/dl (6.3-8.2); eGFR > 60.00
[2024-10-30 06:34] LABS: Lactic Acid 0.7 mmol/L (0.7-2.0)
[2024-10-30 06:47] LABS: Urine Albumin 1+ (Neg - Trace); Urine Bilirubin Negative (Negative); Urine Character Very Cloudy (Clear); Urine Color Yellow; Urine Glucose Negative (Negative); Urine Ketone Negative (Negative); Urine Leukocyte 2+ (Negative); Urine Nitrite Negative (Negative); Urine Occult Blood 3+ (Negative); Urine Specific Gravity 1.015 (<1.030); Urine Urobilinogen 1+ (Neg - 1+); Urine pH 6.5 (5.0-9.0)
[2024-10-30] MEDS: DILAUDID 1 MG IV ×3 (07:32→20:43)
[2024-10-30] MEDS: ROCEPHIN 1000 MG IV (07:33)
[2024-10-30] MEDS: ZITHROMAX INFUSION 250 IV (07:33)
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
[2024-10-30 08:21] LABS: Urine Bacteria Many (Negative); Urine Mucus Moderate; Urine White Cell 40-50 /HPF (0-5)
[2024-10-30] MEDS: KCL 270 MEQ IV (09:10)
[2024-10-30] MEDS: NSS 500 IV ×2 (10:13→11:26)
[2024-10-30] MEDS: PAXLOVID 2X150 MG-100 MG DOSE PACK 1 DOSE PO (12:54)
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
[2024-10-30] MEDS: NSS 1000 IV ×2 (14:03→23:24)
[2024-10-30] MEDS: REGLAN PO ×2 (14:04→16:13)
[2024-10-30] MEDS: ProAmatine 2.5 MG PO (14:04)
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
[2024-10-30] MEDS: DOLOPHINE 20 MG PO ×2 (16:10→23:14)
[2024-10-30] MEDS: LOVENOX 40 MG SC (17:42)
[2024-10-30] MEDS: ProAmatine PO (17:47)
[2024-10-30] MEDS: VIBRAMYCIN 100 MG PO (20:10)
[2024-10-30] MEDS: MOLNUPIRAVIR (EUA) 800 MG PO (20:13)
--- NOTE | 2024-10-30 20:19 | PTCARENOTE ---
Pt received from previous RN. pt AAOx3. Pt NSR on monitor. This Rn attempted to turn pt, pt refused, education provided on purpose of turn and potential breakdown that could occur if not turning regularly. Pt upset with size of HS Meds
administered. This RN provided education r/t importance of medications administered. pt offered apple sauce to take pills with, pt states he does not like apple sauce. Pt eventually took pills after educations provided.
[2024-10-30] MEDS: ZANAFLEX 4 MG PO (23:14)
[2024-10-31] VITALS (11 sets, daily range): BP systolic 96–146; BP diastolic 64–94
[2024-10-31 05:05] LABS: Blood Urea Nitrogen 15 mg/dl (9-20); Calcium 7.4 mg/dl (8.4-10.2); Carbon Dioxide 21 mmol/L (22-30); Chloride 110 mmol/L (98-107); Glucose 101 mg/dl (70-99); Magnesium 1.6 mg/dl (1.6-2.3); Potassium 3.8 mmol/L (3.5-5.1); Sodium 139 mmol/L (135-145); eGFR > 60.00
[2024-10-31 05:36] LABS: Hemoglobin 8.6 g/dL (13.0-18.0); Mean Corp Hgb Conc. 31.9 g/dL (33.0-37.0); Mean Corpuscular Hgb 26.2 pg (27.0-31.0); Mean Corpuscular Volume 82.3 fL (80.0-94.0); Mean Platelet Volume 9.9 fL (7.4-10.4); Platelet Count 149 10^3/uL (130-400); Red Blood Cell Count 3.28 10^6/uL (4.70-6.10); Red Cell Dist. Width 15.6 % (11.5-14.5); White Blood Cell Count 5.2 10^3/uL (4.8-10.8)
--- NOTE | 2024-10-31 06:41 | PTCARENOTE ---
am hgb 8.6 from 12.3. Pt not having bloody stools or urine. VSS. pt does have pale coloring this am. Coating Supervisor made aware. repeat cbc order received. lab sent.
[2024-10-31 06:47] LABS: Hematocrit 28.1 % (39.0-52.0); Hemoglobin 9.2 g/dL (13.0-18.0); Mean Corp Hgb Conc. 32.7 g/dL (33.0-37.0); Mean Corpuscular Hgb 26.8 pg (27.0-31.0); Mean Corpuscular Volume 81.9 fL (80.0-94.0); Mean Platelet Volume 9.3 fL (7.4-10.4); Platelet Count 150 10^3/uL (130-400); Red Blood Cell Count 3.43 10^6/uL (4.70-6.10); Red Cell Dist. Width 15.8 % (11.5-14.5); White Blood Cell Count 5.1 10^3/uL (4.8-10.8)
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
[2024-10-31] MEDS: VIBRAMYCIN 100 MG PO ×2 (09:20→21:13)
[2024-10-31] MEDS: PAXIL PO (09:21)
[2024-10-31] MEDS: LIORESAL 20 MG PO (09:21)
[2024-10-31] MEDS: ProAmatine PO (09:21)
[2024-10-31] MEDS: DOLOPHINE 20 MG PO ×2 (09:21→15:47)
[2024-10-31] MEDS: REGLAN PO ×3 (09:22→15:47)
[2024-10-31] MEDS: ROCEPHIN 1000 MG IV (09:23)
[2024-10-31] MEDS: STERILE WATER FOR INJECTION 10 ML IV (09:23)
[2024-10-31] MEDS: NSS 1000 IV ×2 (09:26→20:33)
--- NOTE | 2024-10-31 10:42 | W.PN.ID1 ---
Date of Service
Date of Service: October 31, 2024
Today's Communication
Continue antibiotics for today.
Assessment / Plan
Nausea/vomiting (without diarrhea)
- improved
COVID-19 positive
- On molnupiravir
Fevers
- improved
Normal white count with left shift
Hx CML
T4 paraplegia
Neurogenic bladder with urostomy
Chronic pain syndrome
Recommendations:
Continue with 5-day course of molnupiravir.
Continue with ceftriaxone and doxycycline for now.
Urine cultures pending, but given collection from urostomy, it likely will reflect significant colonization, and provides little in the way of guidance.
Monitor white count and temperature curve.
Further recommendations as additional data is returned.
����������������������������������������������������������
Chief Complaint
-: Other (COVID-19)
Subjective / Review of Systems
Patient seen and examined. Reports feeling somewhat improved. Mild decrease in nausea. No fevers. Minimal cough. No shortness of breath.
Vital Signs / Physical Exam
Vital Signs
Vital Signs
Temp Pulse Resp BP Pulse Ox
97.7 F 72 8 130/73 100
10/31/24 07:15 10/31/24 10:00 10/31/24 10:00 10/31/24 10:00 10/31/24 10:00
Physical Exam
Constitutional: No Acute Distress, Comfortable and Non-toxic
Eyes: Sclera Anicteric
Cardiovascular: S1/S2; Negative S3/S4
Pulmonary: Clear; Negative Wheezes or Rales
Gastrointestinal: Soft and Non Tender
Genito-Urinary: Stanley (Urostomy) and Clear Urine; Negative Hematuria
Skin: Warm and Dry; Negative Rash
Neurological: Awake and Alert
Psychological: Calm
Objective Data
Lab Data
Lab Results
10/31/24 06:32
10/31/24 04:22
Lactic Acid 0.7 mmol/L (0.7-2.0) 10/30/24 05:56
Total Bilirubin 1.1 mg/dl (0.2-1.3) 10/30/24 05:56
AST 17 U/L (17-59) 10/30/24 05:56
ALT 13 U/L (0-50) 10/30/24 05:56
Alkaline Phosphatase 61 U/L (38-126) 10/30/24 05:56
Most recent labs reviewed.
Micro Results:
10/30/24 05:56 Blood Culture - Preliminary
Blood/Venous No Growth in 24 hours- Final report to follow
10/30/24 05:56 Urine Culture - Pending
Urine
10/30/24 05:56 Influenza Types A & B (LORAINE) - Final
Nasal Swab Negative for Influenza A & B, NAAT
Negative results must be combined with clinical observations
and patient history.
Nucleic Acid Amplification test (NAAT)performed on the
[employer] platform.
Imaging:
10/30/2024 CXR (portable): Small ground-glass opacities in the peripheral right midlung and peripheral left lower lung suspicious for mild pneumonia. Mild subsegmental atelectasis is an alternative diagnostic possibility. Moderate chronic elevation
of the right hemidiaphragm decreasing lung volumes. Severe air distention of the stomach and colonic loops in the upper abdomen which is likely secondary to an ileus and constipation as seen on the prior imaging examinations. Previous multilevel
bilateral posterior instrumentation in the thoracic spine. Left subclavian Mediport in place.
[2024-10-31] MEDS: MOLNUPIRAVIR (EUA) 800 MG PO ×2 (11:14→21:11)
[2024-10-31] MEDS: ZOFRAN 4 MG IV (11:14)
[2024-10-31] MEDS: MAGNESIUM SULFATE 50 IV (11:15)
--- NOTE | 2024-10-31 11:59 | WOUNDNOTE ---
WOC RN NOTE: Consult received but no wounds noted on admission. Spoke to RNViji who explained patient has had wounds in the past but noted on admission. TT Hospitalist and consult cancelled.
--- NOTE | 2024-10-31 12:35 | PTCARENOTE ---
Assumed care of patient at beginning of this shift from previous RN. Patient refusing miralax and senokot; offered prn suppository which he also refused. A now order for suppository was entered by Dr Faye; patient also refused that. Patient stated
he did not have a CXR this admission, nor while he was in the ED. Confirmed patient's name and with that listed on the CXR report. TT sent to Dr Faye to make him aware.
[2024-10-31] MEDS: DULCOLAX RECTAL (12:39)
[2024-10-31] MEDS: ProAmatine 2.5 MG PO ×2 (14:10→18:01)
[2024-10-31] MEDS: DULCOLAX 10 MG RECTAL (15:47)
--- NOTE | 2024-10-31 15:52 | PTCARENOTE ---
Patient now consented to suppository; given as ordered.
[2024-10-31] MEDS: LOVENOX 40 MG SC (18:02)
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
--- NOTE | 2024-10-31 21:00 | PTCARENOTE ---
Pt received from david RN. Pt AAOx3. NSR on monitor. on RA, satting 98%. Pt remains refusing HS senna that is ordered, Pt educated on use and necessity. Pt tsf to bed 425 by this RN and with the applications coordinator assistance.
[2024-10-31] MEDS: DOLOPHINE PO (21:09)
[2024-10-31] MEDS: ZANAFLEX 4 MG PO (23:19)
[2024-11-01] VITALS (7 sets, daily range): BP systolic 107–139; BP diastolic 69–84
[2024-11-01] MEDS: NSS 1000 IV ×2 (05:53→15:26)
[2024-11-01 05:56] LABS: Hematocrit 28.6 % (39.0-52.0); Hemoglobin 9.1 g/dL (13.0-18.0); Mean Corp Hgb Conc. 31.8 g/dL (33.0-37.0); Mean Corpuscular Hgb 26.6 pg (27.0-31.0); Mean Corpuscular Volume 83.6 fL (80.0-94.0); Mean Platelet Volume 9.3 fL (7.4-10.4); Platelet Count 148 10^3/uL (130-400); Red Blood Cell Count 3.42 10^6/uL (4.70-6.10); Red Cell Dist. Width 15.9 % (11.5-14.5)
[2024-11-01 06:16] LABS: Blood Urea Nitrogen 11 mg/dl (9-20); Calcium 7.4 mg/dl (8.4-10.2); Carbon Dioxide 18 mmol/L (22-30); Chloride 113 mmol/L (98-107); Estimated Creatinine Clearance 95 ml/min; Glucose 77 mg/dl (70-99); Phosphorus 2.7 mg/dl (2.5-4.5); Potassium 3.5 mmol/L (3.5-5.1); Sodium 139 mmol/L (135-145); eGFR > 60.00
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
[2024-11-01] MEDS: REGLAN PO ×3 (09:00→16:29)
[2024-11-01] MEDS: ProAmatine PO ×3 (09:01→17:21)
[2024-11-01] MEDS: PAXIL PO (09:02)
[2024-11-01] MEDS: MOLNUPIRAVIR (EUA) 800 MG PO ×2 (09:02→22:29)
[2024-11-01] MEDS: DOLOPHINE 20 MG PO ×3 (09:04→22:31)
[2024-11-01] MEDS: VIBRAMYCIN 100 MG PO (09:05)
[2024-11-01] MEDS: STERILE WATER FOR INJECTION 10 ML IV (09:05)
[2024-11-01] MEDS: LIORESAL 20 MG PO (09:05)
[2024-11-01] MEDS: ROCEPHIN 1000 MG IV (09:06)
--- NOTE | 2024-11-01 09:10 | PN.CDI ---
CDI
- -
CDI:
Physician Documentation Request
Admit Date: 10/30/24 11:22
Dear Doctor Neyda,
Patient admitted for covid.
Please review the following and provide your response in the progress notes.
Clinical Indicators:
Height: 5' 10'
Weight: 124 lbs
BMI: 17.8
If possible, please provide an associated diagnosis related to the abnormal BMI, such as:
Cachectic
Underweight
BMI is not significant
Other
BMI < or = to 19.9
Underweight
Weight Loss
Cachectic
Anorexia
Use of terms such as suspected, likely, concern for, or probable (associated with a specific diagnosis that is being evaluated, monitored, or treated as if it exists) are acceptable and can be coded in the inpatient setting, when documented at the
time of discharge.
Thank you,
Abby Ely RN, BSN
CDI Specialist
Available via [facility] text
Please use your independent medical judgment in providing your response.
--- NOTE | 2024-11-01 09:12 | PTCARENOTE ---
Patient refusing meds, education provided as to reason meds ordered. No c/o nausea or vomiting, denies any abdominal pain at this time. Is oriented and able to make his needs known.
--- NOTE | 2024-11-01 11:58 | CM ---
CM reviewed chart, patient covid positive, call placed to patients mother, Cheyenne to conduct initial assessment. Patient wheelchair bound, paraplegic, resides at home with mother, ramp to enter home. Cheyenne reports she provides 16/05 care to patient,
denies VN or SNF. Patient PCP [facility], [facility]. Patient on IV antibiotics. Cheyenne asking about shampoo recommendations for patients dry scalp. CM will continue to follow for all discharge planning needs.
Plan; home with mother when stable
--- NOTE | 2024-11-01 12:04 | W.PN.ID1 ---
Date of Service
Date of Service: November 01, 2024
Today's Communication
Continue with current course of molnupiravir. Discontinue further Rocephin/doxycycline
Assessment / Plan
Nausea/vomiting (without diarrhea)
- improved
COVID-19 positive
- On molnupiravir
Fevers
- improved
Normal white count with left shift
Hx CML
T4 paraplegia
Neurogenic bladder with urostomy
Chronic pain syndrome
Recommendations:
Patient overall appears improved. CXR findings likely secondary to COVID alone.
Urine cultures unrevealing.
Continue with 5-day course of molnupiravir (d#3).
Discontinue further ceftriaxone and doxycycline
Monitor white count and temperature curve.
����������������������������������������������������������
Chief Complaint
-: Other (COVID-19)
Subjective / Review of Systems
Review of Systems: No Fever, No Chills and No Cough
Vital Signs / Physical Exam
Vital Signs
Vital Signs
Temp Pulse Resp BP Pulse Ox
98.1 F 68 18 133/84 99
11/01/24 11:36 11/01/24 11:36 11/01/24 11:36 11/01/24 11:36 11/01/24 11:36
Physical Exam
Constitutional: No Acute Distress, Comfortable and Non-toxic
Eyes: Sclera Anicteric
Cardiovascular: S1/S2; Negative S3/S4
Pulmonary: Clear; Negative Wheezes or Rales
Gastrointestinal: Soft and Non Tender
Genito-Urinary: Barton (Urostomy to barton bag) and Clear Urine; Negative Hematuria
Skin: Warm and Dry; Negative Rash
Neurological: Awake and Alert
Psychological: Calm
Objective Data
Lab Data
Lab Results
11/01/24 05:26
11/01/24 05:26
Estimated Creat Clear 95 ml/min 11/01/24 05:26
Lactic Acid 0.7 mmol/L (0.7-2.0) 10/30/24 05:56
Total Bilirubin 1.1 mg/dl (0.2-1.3) 10/30/24 05:56
AST 17 U/L (17-59) 10/30/24 05:56
ALT 13 U/L (0-50) 10/30/24 05:56
Alkaline Phosphatase 61 U/L (38-126) 10/30/24 05:56
Most recent labs reviewed.
Micro Results:
10/30/24 05:56 Blood Culture - Preliminary
Blood/Venous No Growth in 48 hours- Final report to follow
10/30/24 05:56 Urine Culture - Final
Urine
10/30/24 05:56 Influenza Types A & B (LORAINE) - Final
Nasal Swab Negative for Influenza A & B, NAAT
Negative results must be combined with clinical observations
and patient history.
Nucleic Acid Amplification test (NAAT)performed on the
[employer] platform.
Imaging:
10/30/2024 CXR (portable): Small ground-glass opacities in the peripheral right midlung and peripheral left lower lung suspicious for mild pneumonia. Mild subsegmental atelectasis is an alternative diagnostic possibility. Moderate chronic elevation
of the right hemidiaphragm decreasing lung volumes. Severe air distention of the stomach and colonic loops in the upper abdomen which is likely secondary to an ileus and constipation as seen on the prior imaging examinations. Previous multilevel
bilateral posterior instrumentation in the thoracic spine. Left subclavian Mediport in place.
[2024-11-01] MEDS: LOVENOX 40 MG SC (15:32)
[2024-11-01] MEDS: ZANAFLEX 4 MG PO (22:32)
[2024-11-02 03:30] VITALS: BP 122/74
[2024-11-02 04:56] LABS: Hematocrit 27.7 % (39.0-52.0); Mean Corp Hgb Conc. 32.5 g/dL (33.0-37.0); Mean Corpuscular Hgb 26.6 pg (27.0-31.0); Mean Platelet Volume 9.4 fL (7.4-10.4); Platelet Count 150 10^3/uL (130-400); Red Blood Cell Count 3.38 10^6/uL (4.70-6.10); Red Cell Dist. Width 15.9 % (11.5-14.5); White Blood Cell Count 3.7 10^3/uL (4.8-10.8)
[2024-11-02 05:55] LABS: Blood Urea Nitrogen 9 mg/dl (9-20); Calcium 7.5 mg/dl (8.4-10.2); Carbon Dioxide 18 mmol/L (22-30); Chloride 114 mmol/L (98-107); Estimated Creatinine Clearance 95 ml/min; Glucose 78 mg/dl (70-99); Phosphorus 2.8 mg/dl (2.5-4.5); Potassium 3.4 mmol/L (3.5-5.1); Sodium 140 mmol/L (135-145); eGFR > 60.00
[2024-11-02 06:08] LABS: Magnesium 1.7 mg/dl (1.6-2.3)
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
[2024-11-02 07:25] VITALS: BP 127/74
[2024-11-02] MEDS: ProAmatine PO ×4 (08:38→19:19)
[2024-11-02] MEDS: PAXIL 40 MG PO (08:40)
[2024-11-02] MEDS: MOLNUPIRAVIR (EUA) 800 MG PO ×2 (08:40→20:59)
[2024-11-02] MEDS: REGLAN PO ×2 (08:41→09:07)
[2024-11-02] MEDS: LIORESAL 20 MG PO (08:42)
[2024-11-02] MEDS: DOLOPHINE 20 MG PO ×2 (08:42→17:02)
[2024-11-02 11:35] VITALS: BP 136/79
[2024-11-02] MEDS: REGLAN 10 MG PO ×2 (12:26→19:19)
[2024-11-02 15:23] VITALS: BP 134/82
--- NOTE | 2024-11-02 15:51 | W.PN.ID1 ---
Date of Service
Date of Service: November 02, 2024
Today's Communication
Continue with molnupiravir.
Assessment / Plan
Nausea/vomiting (without diarrhea)
- improved
COVID-19 positive
- On molnupiravir
Fevers
- improved
Normal white count with left shift
Hx CML
T4 paraplegia
Neurogenic bladder with urostomy
Chronic pain syndrome
Recommendations:
Patient overall appears improved. CXR findings likely secondary to COVID alone.
Urine cultures unrevealing.
Continue with 5-day course of molnupiravir (d#4).
����������������������������������������������������������
Chief Complaint
-: Other (COVID-19)
Subjective / Review of Systems
Review of Systems: No Fever, No Chills, No Cough and No Sputum Production
Vital Signs / Physical Exam
Vital Signs
Vital Signs
Temp Pulse Resp BP Pulse Ox
98.6 F 92 16 136/79 98
11/02/24 11:35 11/02/24 11:35 11/02/24 11:35 11/02/24 11:35 11/02/24 11:35
Physical Exam
Constitutional: No Acute Distress, Comfortable, Chronically Ill and Non-toxic
Eyes: Sclera Anicteric
Cardiovascular: S1/S2
Pulmonary: Clear and Non Labored; Negative Wheezes or Rales
Gastrointestinal: Soft and Non Tender
Genito-Urinary: Barton (Urostomy to barton bag) and Clear Urine; Negative Hematuria
Skin: Warm and Dry; Negative Rash
Neurological: Awake and Alert
Psychological: Calm
Objective Data
Lab Data
Lab Results
11/02/24 04:21
11/02/24 04:21
Estimated Creat Clear 95 ml/min 11/02/24 04:21
Lactic Acid 0.7 mmol/L (0.7-2.0) 10/30/24 05:56
Total Bilirubin 1.1 mg/dl (0.2-1.3) 10/30/24 05:56
AST 17 U/L (17-59) 10/30/24 05:56
ALT 13 U/L (0-50) 10/30/24 05:56
Alkaline Phosphatase 61 U/L (38-126) 10/30/24 05:56
Most recent labs reviewed.
Micro Results:
10/30/24 05:56 Blood Culture - Preliminary
Blood/Venous No Growth in 72 hours- Final report to follow
10/30/24 05:56 Urine Culture - Final
Urine
10/30/24 05:56 Influenza Types A & B (LORAINE) - Final
Nasal Swab Negative for Influenza A & B, NAAT
Negative results must be combined with clinical observations
and patient history.
Nucleic Acid Amplification test (NAAT)performed on the
[employer] platform.
Imaging:
10/30/2024 CXR (portable): Small ground-glass opacities in the peripheral right midlung and peripheral left lower lung suspicious for mild pneumonia. Mild subsegmental atelectasis is an alternative diagnostic possibility. Moderate chronic elevation
of the right hemidiaphragm decreasing lung volumes. Severe air distention of the stomach and colonic loops in the upper abdomen which is likely secondary to an ileus and constipation as seen on the prior imaging examinations. Previous multilevel
bilateral posterior instrumentation in the thoracic spine. Left subclavian Mediport in place.
Care Review
Plan reviewed with: Physician (Hospitalist)
[2024-11-02 19:00] VITALS: BP 134/98
[2024-11-02] MEDS: LOVENOX 40 MG SC (19:19)
[2024-11-02] MEDS: ZANAFLEX 4 MG PO (20:59)
[2024-11-02] MEDS: DOLOPHINE PO (21:02)
[2024-11-02 23:00] VITALS: BP 112/79
[2024-11-03 03:00] VITALS: BP 156/91
[2024-11-03 06:49] LABS: Hematocrit 29.9 % (39.0-52.0); Hemoglobin 9.8 g/dL (13.0-18.0); Mean Corp Hgb Conc. 32.8 g/dL (33.0-37.0); Mean Corpuscular Hgb 26.4 pg (27.0-31.0); Mean Corpuscular Volume 80.6 fL (80.0-94.0); Mean Platelet Volume 9.5 fL (7.4-10.4); Platelet Count 152 10^3/uL (130-400); Red Blood Cell Count 3.71 10^6/uL (4.70-6.10); Red Cell Dist. Width 15.5 % (11.5-14.5); White Blood Cell Count 3.4 10^3/uL (4.8-10.8)
[2024-11-03 07:10] VITALS: BP 141/98
[2024-11-03 07:12] LABS: Blood Urea Nitrogen 9 mg/dl (9-20); Calcium 7.5 mg/dl (8.4-10.2); Carbon Dioxide 22 mmol/L (22-30); Chloride 110 mmol/L (98-107); Estimated Creatinine Clearance 108 ml/min; Glucose 77 mg/dl (70-99); Magnesium 1.7 mg/dl (1.6-2.3); Phosphorus 2.5 mg/dl (2.5-4.5); Potassium 3.5 mmol/L (3.5-5.1); Sodium 140 mmol/L (135-145); eGFR > 60.00
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
[2024-11-03] MEDS: MOLNUPIRAVIR (EUA) 800 MG PO (09:00)
[2024-11-03] MEDS: LIORESAL 20 MG PO (09:01)
[2024-11-03] MEDS: ProAmatine PO ×2 (09:01→12:26)
[2024-11-03] MEDS: REGLAN 10 MG PO ×2 (09:02→17:30)
[2024-11-03] MEDS: DOLOPHINE 20 MG PO ×2 (09:13→17:30)
[2024-11-03 11:59] VITALS: BP 134/84
[2024-11-03] MEDS: REGLAN PO (12:26)
[2024-11-03 15:02] VITALS: BP 145/85
--- NOTE | 2024-11-03 15:52 | CM ---
corporate relations manager reviewed patient's chart and patient has been cleared for discharged today, patient to return to home, ambulance transport has been set up for 6:30pm, IMM discussed by phone, patient is on isolation. Patient to call his mother to make
her aware.
Plan; Home today.
[2024-11-03] MEDS: LOVENOX 40 MG SC (17:35)
== END 2024-11-03 18:43 | disposition home or self-care (01) | DRG 871 ==
LOC: 4 WEST ACU 11:22
PROVIDERS: Nurse Practitioner Gerontology; Student in an Organized Health Care Education/Training Program; ADMITTING PHYSICIAN Internal Medicine; EMERGENCY PHYSICIAN Emergency Medicine; FAMILY PHYSICIAN Family Medicine; OTHER PHYSICIAN Internal Medicine Infectious Disease
DX: A41.89 Other specified sepsis (principal); J12.82 Pneumonia due to coronavirus disease 2019; U07.1 COVID-19; C92.10 Chronic myeloid leukemia, BCR/ABL-positive, not having achieved remission; K56.7 Ileus, unspecified; G82.20 Paraplegia, unspecified; Z68.1 Body mass index [BMI] 19.9 or less, adult; F11.20 Opioid dependence, uncomplicated; G89.4 Chronic pain syndrome; D63.0 Anemia in neoplastic disease; K31.84 Gastroparesis; Z88.1 Allergy status to other antibiotic agents; F32.A Depression, unspecified; F41.9 Anxiety disorder, unspecified; Z79.899 Other long term (current) drug therapy; Z87.440 Personal history of urinary (tract) infections; N31.9 Neuromuscular dysfunction of bladder, unspecified; Z98.1 Arthrodesis status; E87.6 Hypokalemia; R63.6 Underweight; Z93.3 Colostomy status
CPT/HCPCS: 71045; 80048; 80053; 81003; 81015; 83605; 83690; 83735; 84100; 85025; 85027; 87040; 87086; 87502; 87811; 93005; 96365; 96366; 96367; 96375; 96376; 99285

== ENCOUNTER 2025-03-27 00:06 | Observation (INO) | payer OTHER, SELFPAY ==
[2025-03-26 19:21] VITALS: BP 124/78
[2025-03-26 20:00] VITALS: BP 108/67
[2025-03-26] MEDS: ZOFRAN 4 MG IV ×2 (20:01→22:59)
[2025-03-26 20:06] LABS: % Basophils 0.4 % (0-2); % Eosinophils 0.1 % (0-6); % Immature Granulocytes 0.4 % (0-0.5); % Monocytes 2.7 % (1.7-9.3); % Neutrophils 89.4 % (42.2-75.2); Absolute Lymphocytes 0.5 10^3/uL (1.2-3.4); Absolute Monocytes 0.2 10^3/uL (0.1-0.6); Absolute Neutrophils 6.7 10^3/uL (1.4-6.5); Hematocrit 31.7 % (39.0-52.0); Hemoglobin 10.5 g/dL (13.0-18.0); Mean Corp Hgb Conc. 33.1 g/dL (33.0-37.0); Mean Corpuscular Hgb 26.3 pg (27.0-31.0); Mean Corpuscular Volume 79.4 fL (80.0-94.0); Nucleated Red Blood Cells % 0 % (-); Platelet Count 194 10^3/uL (130-400); Red Blood Cell Count 3.99 10^6/uL (4.70-6.10); Red Cell Dist. Width 17.4 % (11.5-14.5); White Blood Cell Count 7.5 10^3/uL (4.8-10.8)
[2025-03-26 20:29] LABS: ALT (SGPT) 11 U/L (0-50); AST (SGOT) 14 U/L (17-59); Albumin 4.2 g/dl (3.5-5.0); Alkaline Phosphatase 57 U/L (38-126); Blood Urea Nitrogen 24 mg/dl (9-20); Calcium 8.8 mg/dl (8.4-10.2); Carbon Dioxide 20 mmol/L (22-30); Chloride 113 mmol/L (98-107); Glucose 112 mg/dl (70-99); Lipase 103 U/L (23-300); Potassium 3.8 mmol/L (3.5-5.1); Sodium 144 mmol/L (135-145); Total Bilirubin 1.1 mg/dl (0.2-1.3); Total Protein 7.3 g/dl (6.3-8.2); eGFR > 60.00
[2025-03-26 21:00] VITALS: BP 110/86
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
[2025-03-26] MEDS: DILAUDID 1 MG IV (21:47)
[2025-03-26] MEDS: NSS 1000 IV (21:49)
[2025-03-26 22:00] VITALS: BP 114/75
[2025-03-26 23:00] VITALS: BP 108/71
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
[2025-03-27] VITALS (7 sets, daily range): BP systolic 97–126; BP diastolic 66–81; BMI 19.0
[2025-03-27] LABS: Urine Albumin 3+ (Neg - Trace); Urine Bilirubin Negative (Negative); Urine Character Cloudy (Clear); Urine Glucose Negative (Negative); Urine Ketone 1+ (Negative); Urine Leukocyte 3+ (Negative); Urine Nitrite Negative (Negative); Urine Occult Blood 4+ (Negative); Urine Urobilinogen Negative (Neg - 1+)
[2025-03-27 00:02] LABS: Urine Color Straw
[2025-03-27 00:26] LABS: Urine Red Blood Cell 40-50 /HPF (0-2); Urine White Cell >100 /HPF (0-5)
[2025-03-27 00:27] LABS: Urine Bacteria Many (Negative)
[2025-03-27] MEDS: COMPAZINE 5 MG IV (01:34)
[2025-03-27] MEDS: NSS 1000 IV (01:34)
[2025-03-27] MEDS: STERILE WATER FOR INJECTION 10 ML IV ×4 (01:35→19:55)
[2025-03-27] MEDS: MERREM 500 MG IV ×4 (01:35→19:54)
[2025-03-27] MEDS: REGLAN 5 MG IV (04:37)
[2025-03-27] MEDS: DILAUDID 1 MG IV ×4 (04:37→20:13)
[2025-03-27 06:36] LABS: Hematocrit 27.7 % (39.0-52.0); Mean Corp Hgb Conc. 32.5 g/dL (33.0-37.0); Mean Corpuscular Hgb 26.7 pg (27.0-31.0); Mean Corpuscular Volume 82.2 fL (80.0-94.0); Mean Platelet Volume 9.3 fL (7.4-10.4); Platelet Count 169 10^3/uL (130-400); Red Blood Cell Count 3.37 10^6/uL (4.70-6.10); Red Cell Dist. Width 17.6 % (11.5-14.5); White Blood Cell Count 4.7 10^3/uL (4.8-10.8)
[2025-03-27 06:46] LABS: Blood Urea Nitrogen 25 mg/dl (9-20); Calcium 8.4 mg/dl (8.4-10.2); Carbon Dioxide 16 mmol/L (22-30); Chloride 118 mmol/L (98-107); Glucose 89 mg/dl (70-99); Magnesium 1.9 mg/dl (1.6-2.3); Potassium 3.8 mmol/L (3.5-5.1); Sodium 149 mmol/L (135-145); eGFR > 60.00
--- NOTE | 2025-03-27 08:06 | PTCARENOTE ---
Assumed care of patient. Pt chief complaint is chronic pain and that he is unable to take anything po due to n/v all night. Pt is asking for IV pain medications. None are ordered on DEC. RN reached out to hospitalist about patient request and
reassured patient MD will be by to see patient. RN offered to reposition patient in bed.
[2025-03-27] MEDS: LIORESAL PO (08:11)
[2025-03-27] MEDS: PROTONIX PO (08:11)
[2025-03-27] MEDS: PAXIL PO (08:11)
[2025-03-27] MEDS: DOLOPHINE PO ×3 (08:11→19:55)
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
[2025-03-27] MEDS: ZOFRAN 4 MG IV ×2 (10:36→18:23)
--- NOTE | 2025-03-27 10:45 | CM ---
Addendum entered by Akilah Turner 03/27/25 11:40:
Pt had services with [facility] in the past
Addendum entered by Akilah Turner 03/27/25 11:13:
Pt hx of T4 paraplegia and has a nephrostomy. Mom provides support at home.
Original Note:
CM reviewed chart and met with pt bedside in ED. Lives with his mother in 2 story home, 1 [address]. Has hospital bed and wheelchair.
PCP: Bc Zaragoza
Pharmacy: [facility]
Plan: Home, pending ongoing medical evaluation
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
[2025-03-27] MEDS: VALIUM INJECTION 2 MG IV ×2 (12:13→18:47)
[2025-03-27] MEDS: 0.45%NACL 1000 IV ×2 (12:14→23:50)
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
[2025-03-27] MEDS: REGLAN 10 MG IV ×2 (15:55→23:54)
[2025-03-27] MEDS: LOVENOX 40 MG SC (17:01)
[2025-03-27] MEDS: DULCOLAX 10 MG RECTAL (19:54)
[2025-03-27] MEDS: ZANAFLEX PO (20:09)
[2025-03-28] MEDS: DILAUDID 1 MG IV ×3 (01:06→09:22)
[2025-03-28] MEDS: VALIUM INJECTION 2 MG IV (01:07)
[2025-03-28] MEDS: MERREM 500 MG IV ×3 (01:55→12:54)
[2025-03-28] MEDS: STERILE WATER FOR INJECTION 10 ML IV ×3 (01:55→12:55)
[2025-03-28 05:59] LABS: % Basophils 0.3 % (0-2); % Immature Granulocytes 0.3 % (0-0.5); % Lymphocytes 13.6 % (20.5-51.1); % Neutrophils 76.8 % (42.2-75.2); Absolute Lymphocytes 0.8 10^3/uL (1.2-3.4); Absolute Monocytes 0.6 10^3/uL (0.1-0.6); Absolute Neutrophils 4.8 10^3/uL (1.4-6.5); Hematocrit 25.9 % (39.0-52.0); Hemoglobin 8.5 g/dL (13.0-18.0); Mean Corp Hgb Conc. 32.8 g/dL (33.0-37.0); Mean Corpuscular Hgb 26.3 pg (27.0-31.0); Mean Corpuscular Volume 80.2 fL (80.0-94.0); Mean Platelet Volume 8.8 fL (7.4-10.4); Nucleated Red Blood Cells % 0 % (-); Platelet Count 168 10^3/uL (130-400); Red Blood Cell Count 3.23 10^6/uL (4.70-6.10); Red Cell Dist. Width 18.4 % (11.5-14.5); White Blood Cell Count 6.2 10^3/uL (4.8-10.8)
[2025-03-28 06:00] VITALS: BMI 18.4
[2025-03-28 06:26] LABS: Blood Urea Nitrogen 25 mg/dl (9-20); Calcium 7.8 mg/dl (8.4-10.2); Carbon Dioxide 18 mmol/L (22-30); Chloride 115 mmol/L (98-107); Estimated Creatinine Clearance 89 ml/min; Glucose 123 mg/dl (70-99); Magnesium 1.9 mg/dl (1.6-2.3); Potassium 3.3 mmol/L (3.5-5.1); Sodium 143 mmol/L (135-145); eGFR > 60.00
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
[2025-03-28 08:20] VITALS: BP 110/69
[2025-03-28] MEDS: KCL ELIXIR 40 MEQ PO (08:39)
[2025-03-28] MEDS: REGLAN 10 MG IV ×2 (08:40→16:20)
[2025-03-28] MEDS: PROTONIX 40 MG PO (08:40)
[2025-03-28] MEDS: PAXIL 20 MG PO (08:40)
[2025-03-28] MEDS: LIORESAL 20 MG PO (08:40)
[2025-03-28] MEDS: DOLOPHINE PO (08:53)
[2025-03-28] MEDS: 0.45%NACL 1000 IV (12:49)
[2025-03-28] MEDS: KCL 40 MEQ PO (12:49)
[2025-03-28] MEDS: DILAUDID 2 MG IV ×2 (12:52→20:50)
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
[2025-03-28 15:48] VITALS: BP 109/68
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
[2025-03-28] MEDS: DOLOPHINE 20 MG PO ×2 (16:19→22:56)
[2025-03-28] MEDS: DULCOLAX 10 MG RECTAL (16:20)
[2025-03-28] MEDS: LOVENOX 40 MG SC (16:20)
[2025-03-28] MEDS: STERILE WATER FOR INJECTION IV (19:15)
[2025-03-28] MEDS: ZANAFLEX 4 MG PO (22:56)
[2025-03-28] MEDS: ZOFRAN 4 MG IV (22:56)
[2025-03-28 23:05] VITALS: BP 96/56
[2025-03-29] MEDS: REGLAN IV ×3 (00:42→15:12)
[2025-03-29] MEDS: 0.45%NACL 1000 IV (00:42)
[2025-03-29] MEDS: STERILE WATER FOR INJECTION IV ×3 (02:40→12:25)
[2025-03-29 05:30] LABS: Hematocrit 24.1 % (39.0-52.0); Hemoglobin 7.9 g/dL (13.0-18.0); Mean Corp Hgb Conc. 32.8 g/dL (33.0-37.0); Mean Corpuscular Hgb 26.2 pg (27.0-31.0); Mean Corpuscular Volume 80.1 fL (80.0-94.0); Mean Platelet Volume 8.7 fL (7.4-10.4); Platelet Count 114 10^3/uL (130-400); Red Blood Cell Count 3.01 10^6/uL (4.70-6.10); Red Cell Dist. Width 17.7 % (11.5-14.5); White Blood Cell Count 3.6 10^3/uL (4.8-10.8)
[2025-03-29 05:43] LABS: Blood Urea Nitrogen 17 mg/dl (9-20); Calcium 7.6 mg/dl (8.4-10.2); Carbon Dioxide 18 mmol/L (22-30); Chloride 117 mmol/L (98-107); Estimated Creatinine Clearance 97 ml/min; Glucose 95 mg/dl (70-99); Potassium 3.7 mmol/L (3.5-5.1); Sodium 137 mmol/L (135-145); eGFR > 60.00
[2025-03-29 07:00] VITALS: BP 101/64
[2025-03-29] MEDS: DOLOPHINE 20 MG PO ×2 (07:35→15:12)
[2025-03-29] MEDS: PROTONIX 40 MG PO (07:35)
[2025-03-29] MEDS: LIORESAL 20 MG PO (07:36)
[2025-03-29] MEDS: PAXIL 20 MG PO (07:36)
[2025-03-29] MEDS: ZOFRAN 4 MG IV (08:51)
[2025-03-29] MEDS: REGLAN 10 MG IV (09:49)
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
--- NOTE | 2025-03-29 11:26 | W.PN.ID1 ---
Date of Service
Date of Service: March 29, 2025
Today's Communication
Observe off antibiotics.
Assessment / Plan
Intractable nausea/vomiting
Gastric distention
Normal white count with left shift
Hypernatremia
Pyuria (from urostomy)
CML
Hx gastroparesis
T4 paraplegia
Neurogenic bladder
Chronic pain syndrome
Recommendations:
Patient with history of gastroparesis.
Not clear of significance of pyuria on urinalysis, as it likely is contaminated by collection from bag. Ideally, urostomy should be catheterized for sample. If this was not done, sample likely compromised.
Adequate fluid intake daily was stressed to the patient.
Observe off abx.
Monitor white count and temperature curve.
����������������������������������������������������������
Chief Complaint
-: Other (Abdominal distention)
Subjective / Review of Systems
Patient seen and examined. Reports feeling better. Tolerating diet.
Review of Systems: No Fever and No Chills
Vital Signs / Physical Exam
Vital Signs
Vital Signs
Temp Pulse Resp BP Pulse Ox
98.2 F 63 17 101/64 100
03/29/25 07:00 03/29/25 07:00 03/29/25 07:00 03/29/25 07:00 03/29/25 07:00
Physical Exam
Constitutional: Comfortable, Chronically Ill and Non-toxic
Pulmonary: Non Labored
Gastrointestinal: Non Distended
Genito-Urinary: Other (Urostomy in place with clear urine.)
Neurological: Awake and Alert
Psychological: Calm
Objective Data
Lab Data
Lab Results
03/29/25 04:57
03/29/25 04:57
Estimated Creat Clear 97 ml/min 03/29/25 04:57
Total Bilirubin 1.1 mg/dl (0.2-1.3) 03/26/25 19:51
AST 14 U/L (17-59) L 03/26/25 19:51
ALT 11 U/L (0-50) 03/26/25 19:51
Alkaline Phosphatase 57 U/L (38-126) 03/26/25 19:51
Most recent labs reviewed.
Micro Results:
03/26/25 23:47 Urine Culture - Final
Urine
Imaging:
03/26/2025 CT abdomen/pelvis with IV contrast: Included lung bases are predominantly clear. Marked gaseous distention of the stomach is noted, with air-fluid levels. Evaluation of the intestinal tract is limited without oral contrast, but does not
appear to have intestinal obstruction or free air. Gallstones are noted within the contracted gallbladder. No findings to suggest biliary tract dilatation. No focal adrenal enlargement. The right lower quadrant urinary diversion is seen in is
grossly nonobstructed. Liquid stool was seen in the rectum. Chronic deformity of both hips is stable. Absence of the lower sacrum and coccyx noted. Please see full dictation for additional detail. Film personally viewed
10/30/2024 CXR (portable): Small ground-glass opacities in the peripheral right midlung and peripheral left lower lung suspicious for mild pneumonia. Mild subsegmental atelectasis is an alternative diagnostic possibility. Moderate chronic elevation
of the right hemidiaphragm decreasing lung volumes. Severe air distention of the stomach and colonic loops in the upper abdomen which is likely secondary to an ileus and constipation as seen on the prior imaging examinations. Previous multilevel
bilateral posterior instrumentation in the thoracic spine. Left subclavian Mediport in place.
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
--- NOTE | 2025-03-29 12:28 | CM ---
Addendum entered by Renay Ruiz 03/29/25 12:41:
Ambulance to pick patient up at 3:30pm. Patient's mother is aware of transport time.
Original Note:
Patient has been cleared for discharge today, employment case manager reached out to patient's mother who is aware of discharge, patient will require ambulance transportation, 1 step into home and there is a ramp.
Plan; Home today ambulance transport.
[2025-03-29] MEDS: DILAUDID 2 MG IV (12:53)
--- NOTE | 2025-03-29 14:02 | CHAP ---
Mr. Poole received Sacrament of the Sick and Holy Communion from his [place] [employer] communications operator, Fr. Thomas, on 03/29/25
== END 2025-03-29 15:50 | disposition home or self-care (01) ==
LOC: 4 WEST ACU 00:06
PROVIDERS: Emergency Medicine; Physician Assistant Medical; ADMITTING PHYSICIAN Hospitalist; ATTENDING PHYSICIAN Hospitalist; CONSULT PHYSICIAN Internal Medicine Gastroenterology; EMERGENCY PHYSICIAN Student in an Organized Health Care Education/Training Program; FAMILY PHYSICIAN Family Medicine; OTHER PHYSICIAN Internal Medicine Infectious Disease
DX: R10.9 Unspecified abdominal pain (principal); C92.10 Chronic myeloid leukemia, BCR/ABL-positive, not having achieved remission; G89.4 Chronic pain syndrome; G82.20 Paraplegia, unspecified; F11.20 Opioid dependence, uncomplicated; N31.9 Neuromuscular dysfunction of bladder, unspecified; D63.8 Anemia in other chronic diseases classified elsewhere; R11.2 Nausea with vomiting, unspecified; R14.0 Abdominal distension (gaseous); R00.0 Tachycardia, unspecified; E87.0 Hyperosmolality and hypernatremia; R50.9 Fever, unspecified; E87.6 Hypokalemia; N20.0 Calculus of kidney; R94.31 Abnormal electrocardiogram [ECG] [EKG]; R63.6 Underweight; K80.20 Calculus of gallbladder without cholecystitis without obstruction; K59.09 Other constipation; K31.84 Gastroparesis; E87.8 Other disorders of electrolyte and fluid balance, not elsewhere classified; V89.2XXS Person injured in unspecified motor-vehicle accident, traffic, sequela; Z87.440 Personal history of urinary (tract) infections; Z95.828 Presence of other vascular implants and grafts; Z98.1 Arthrodesis status; Z88.5 Allergy status to narcotic agent; Z88.1 Allergy status to other antibiotic agents; Z88.8 Allergy status to other drugs, medicaments and biological substances; Z90.6 Acquired absence of other parts of urinary tract; Z68.1 Body mass index [BMI] 19.9 or less, adult
CPT/HCPCS: 74177; 80048; 80053; 81003; 81015; 83690; 83735; 85025; 85027; 87086; 93005; 96361; 96374; 96375; 96376; 99285; Q9967

== ENCOUNTER 2025-06-22 20:15 | Inpatient (IN) | payer OTHER, SELFPAY ==
[2025-06-22] VITALS (10 sets, daily range): BP systolic 109–130; BP diastolic 56–103; BMI 18.1; BMI 17.2
[2025-06-22] MEDS: NSS 1000 IV (15:11)
[2025-06-22] MEDS: ZOFRAN 4 MG IV ×2 (15:12→18:56)
[2025-06-22] MEDS: DILAUDID 0.5 MG IV ×2 (15:12→20:12)
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
[2025-06-22 15:31] LABS: Urine Character Cloudy (Clear)
[2025-06-22 15:33] LABS: Hematocrit 31.6 % (39.0-52.0); Hemoglobin 10.4 g/dL (13.0-18.0); Mean Corp Hgb Conc. 32.9 g/dL (33.0-37.0); Mean Corpuscular Volume 79.8 fL (80.0-94.0); Nucleated Red Blood Cells % 0 % (-); Platelet Count 276 10^3/uL (130-400); Red Cell Dist. Width 16.4 % (11.5-14.5)
[2025-06-22 15:44] LABS: Urine Squamous Cell 0-2 /LPF (Few)
[2025-06-22 15:45] LABS: Urine White Cell 60-70 /HPF (0-5)
[2025-06-22 15:48] LABS: COVID-19 Antigen Negative (Negative)
[2025-06-22 15:50] LABS: ALT (SGPT) 11 U/L (0-50); AST (SGOT) 14 U/L (17-59); Albumin 3.5 g/dl (3.5-5.0); Alkaline Phosphatase 60 U/L (38-126); Blood Urea Nitrogen 49 mg/dl (9-20); Calcium 9.0 mg/dl (8.4-10.2); Carbon Dioxide 28 mmol/L (22-30); Estimated Creatinine Clearance 76 ml/min; Glucose 105 mg/dl (70-99); Lipase 123 U/L (23-300); Total Protein 6.3 g/dl (6.3-8.2); eGFR > 60.00
[2025-06-22 16:18] LABS: Chloride 106 mmol/L (98-107); Potassium 4.4 mmol/L (3.5-5.1); Sodium 138 mmol/L (135-145)
--- NOTE | 2025-06-22 16:48 | EDRN ---
pt informed we need a second set of blood cultures taken peripherally. pt repeatedly saying 'but that's what I have the port for.' RN educated pt that one set of cultures need to be drawn separately from the port. pt states 'you get one chance.'
this RN asked another RN who is ultrasound-guided trained to assess patient's arms w/ the ultrasound to obtain second set of cultures.
--- NOTE | 2025-06-22 18:14 | EDRN ---
AUTUMN Robins able to obtain peripheral ultrasound stick for second set of blood cultures
[2025-06-22] MEDS: MERREM 1000 MG IV (18:58)
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
[2025-06-22] MEDS: REGLAN 10 MG IV (21:19)
[2025-06-23] MEDS: COMPAZINE 10 MG IV (00:10)
[2025-06-23] MEDS: DOLOPHINE PO (00:16)
[2025-06-23] MEDS: ZANAFLEX PO ×2 (00:17→21:55)
[2025-06-23] MEDS: DILAUDID 1 MG IV ×4 (00:19→16:33)
[2025-06-23] MEDS: MERREM 1000 MG IV ×2 (02:37→09:39)
[2025-06-23] MEDS: STERILE WATER FOR INJECTION 20 ML IV ×2 (02:42→09:39)
[2025-06-23 08:11] VITALS: BP 120/66
[2025-06-23 09:06] LABS: Blood Urea Nitrogen 33 mg/dl (9-20); Calcium 7.8 mg/dl (8.4-10.2); Carbon Dioxide 25 mmol/L (22-30); Chloride 107 mmol/L (98-107); Estimated Creatinine Clearance 80 ml/min; Glucose 88 mg/dl (70-99); Hematocrit 25.6 % (39.0-52.0); Hemoglobin 8.5 g/dL (13.0-18.0); Mean Corp Hgb Conc. 33.2 g/dL (33.0-37.0); Mean Corpuscular Volume 81.0 fL (80.0-94.0); Platelet Count 200 10^3/uL (130-400); Potassium 3.6 mmol/L (3.5-5.1); Red Cell Dist. Width 16.5 % (11.5-14.5); Sodium 136 mmol/L (135-145); eGFR > 60.00
[2025-06-23] MEDS: PROTONIX 40 MG PO (09:34)
[2025-06-23] MEDS: DOLOPHINE 20 MG PO ×3 (09:34→21:51)
[2025-06-23] MEDS: LIORESAL 20 MG PO (09:38)
[2025-06-23] MEDS: COMPAZINE 5 MG IV (09:44)
[2025-06-23] MEDS: MERREM IV (10:06)
[2025-06-23] MEDS: STERILE WATER FOR INJECTION IV (10:06)
[2025-06-23] MEDS: CARAFATE SUSPENSION 1 GM PO (12:38)
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
[2025-06-23 15:15] VITALS: BP 99/65
[2025-06-23] MEDS: MERREM 500 MG IV ×2 (16:29→21:52)
[2025-06-23] MEDS: STERILE WATER FOR INJECTION 10 ML IV ×2 (16:30→21:52)
[2025-06-23] MEDS: LOVENOX 40 MG SC (17:52)
[2025-06-23 19:48] VITALS: BP 102/67
[2025-06-23] MEDS: DULCOLAX 10 MG RECTAL (21:50)
[2025-06-23 23:08] VITALS: BP 111/65
[2025-06-23] MEDS: ZANAFLEX 4 MG PO (23:36)
[2025-06-24] MEDS: MERREM 500 MG IV ×4 (04:19→22:20)
[2025-06-24] MEDS: STERILE WATER FOR INJECTION 10 ML IV ×4 (04:19→22:20)
[2025-06-24 05:07] LABS: Hematocrit 23.3 % (39.0-52.0); Hemoglobin 7.7 g/dL (13.0-18.0); Mean Corp Hgb Conc. 33.0 g/dL (33.0-37.0); Mean Corpuscular Volume 82.9 fL (80.0-94.0); Nucleated Red Blood Cells % 0 % (-); Platelet Count 146 10^3/uL (130-400); Red Cell Dist. Width 16.1 % (11.5-14.5)
[2025-06-24 05:08] LABS: Blood Urea Nitrogen 24 mg/dl (9-20); Calcium 7.5 mg/dl (8.4-10.2); Carbon Dioxide 25 mmol/L (22-30); Chloride 108 mmol/L (98-107); Estimated Creatinine Clearance 80 ml/min; Glucose 88 mg/dl (70-99); Magnesium 1.8 mg/dl (1.6-2.3); Potassium 3.8 mmol/L (3.5-5.1); Sodium 135 mmol/L (135-145); eGFR > 60.00
[2025-06-24 08:01] VITALS: BP 98/59
[2025-06-24] MEDS: LIORESAL 20 MG PO (08:10)
[2025-06-24] MEDS: DOLOPHINE 20 MG PO ×3 (08:11→22:19)
[2025-06-24] MEDS: NSS (PRESERVATIVE FREE) 10 ML IV (08:11)
[2025-06-24] MEDS: PROTONIX IV 40 MG IV (08:11)
[2025-06-24] MEDS: DILAUDID 1 MG IV ×2 (08:12→20:32)
--- NOTE | 2025-06-24 11:06 | CM ---
CM reviewed chart. Met with pt at bedside. Explained role and discussed anticipated dc plan/options.
Pt is bedbound at baseline. Mom is caregiver.
[facility]ives [facility] home w/ mi set up and ramp access into home.
Pt has chronic urostomy bag for approx 3-4yrs now that he and his mother care independently for.
Pt is not active with any HC agency and is not currently interested in one at [place].
Should pt require LT IVabx for complicated UTI he is familiar with PICC and abx admin twice in the past.
Will require BLS transport at [place].
CM/SW will continue to follow to ensure a safe and timely discharge.
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
--- NOTE | 2025-06-24 11:33 | PTCARENOTE ---
pt refusing preventative foams on sacrum and heels this shift for this RN. education completed at bedside. pt on static air overlay and does not wish to q2T at this time. bed bath done with RN.
[2025-06-24] MEDS: REGLAN 10 MG IV (12:13)
[2025-06-24] MEDS: FLUSH (NSS) 2 FLUSH IV (12:14)
[2025-06-24 14:09] VITALS: BMI 17.2
[2025-06-24 15:51] VITALS: BP 98/53
[2025-06-24] MEDS: LOVENOX 40 MG SC (17:39)
[2025-06-24] MEDS: ZANAFLEX 4 MG PO (22:19)
[2025-06-24 23:18] VITALS: BP 99/52
[2025-06-25] MEDS: MERREM 500 MG IV ×2 (04:08→09:00)
[2025-06-25] MEDS: STERILE WATER FOR INJECTION 10 ML IV ×2 (04:08→09:00)
[2025-06-25 05:28] LABS: Hematocrit 24.1 % (39.0-52.0); Hemoglobin 7.8 g/dL (13.0-18.0); Mean Corp Hgb Conc. 32.4 g/dL (33.0-37.0); Mean Corpuscular Volume 82.8 fL (80.0-94.0); Nucleated Red Blood Cells % 0 % (-); Platelet Count 141 10^3/uL (130-400); Red Cell Dist. Width 16.2 % (11.5-14.5)
[2025-06-25 05:48] LABS: Blood Urea Nitrogen 18 mg/dl (9-20); Calcium 7.9 mg/dl (8.4-10.2); Carbon Dioxide 26 mmol/L (22-30); Chloride 108 mmol/L (98-107); Estimated Creatinine Clearance 80 ml/min; Glucose 80 mg/dl (70-99); Magnesium 1.9 mg/dl (1.6-2.3); Potassium 3.6 mmol/L (3.5-5.1); Sodium 135 mmol/L (135-145); eGFR > 60.00
[2025-06-25 07:40] VITALS: BP 102/61
[2025-06-25] MEDS: LIORESAL 20 MG PO (08:51)
[2025-06-25] MEDS: DOLOPHINE 20 MG PO (08:51)
[2025-06-25] MEDS: NSS (PRESERVATIVE FREE) 10 ML IV (08:52)
[2025-06-25] MEDS: PROTONIX IV 40 MG IV (08:52)
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
--- NOTE | 2025-06-25 11:43 | PN.CDI ---
CDI
- -
CDI:
Physician Documentation Request
Admit Date: 06/22/25 20:15
Dear Doctor Kurt,
Clinical Indicators:
Patient admitted with nausea/vomiting & UTI; PMH includes gastroparesis.
Height: 5 ft 10 in
Weight: 119 lbs 9 oz
BMI: 17.2
06/24 note, BMI assessment: Underweight; Ensure supplement and Prosource added to diet order.
Please provide an associated diagnosis related to the abnormal BM (< or = to 19), such as:
Underweight
Cachectic
BMI is not significant
Other ,please specify
Use of terms such as suspected, likely, concern for, or probable (associated with a specific diagnosis that is being evaluated, monitored, or treated as if it exists) are acceptable and can be coded in the inpatient setting, when documented at the
time of discharge.
Thank you,
GILMER Carpenter RN
CDI Specialist
available via tiger text
Please use your independent medical judgment in providing your response.
--- NOTE | 2025-06-25 11:43 | CM ---
Reviewed the chart notes and spoke with the patient at the bedside and patient's mother via telephone. IMM reviewed. Patient to be discharged on oral abx. Patient declined VN offer. CM continues to be available to patient/family and is
monitoring medical plan for needs at discharge.
Plan: Discharge to home today via BLS
Medical and transport forms on chart.
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
[2025-06-25] MEDS: VIBRAMYCIN 100 MG PO (13:14)
[2025-06-25] MEDS: NIZORAL 2% CREAM 1 APPLIC TOPICAL (13:14)
[2025-06-25 15:05] VITALS: BP 111/63
== END 2025-06-25 18:20 | disposition home or self-care (01) | DRG 690 ==
LOC: 2 NORTH 20:15
PROVIDERS: Internal Medicine; Physician Assistant; ADMITTING PHYSICIAN Internal Medicine; ATTENDING PHYSICIAN Student in an Organized Health Care Education/Training Program; EMERGENCY PHYSICIAN Emergency Medicine
DX: N13.6 Pyonephrosis (principal); C92.10 Chronic myeloid leukemia, BCR/ABL-positive, not having achieved remission; F11.20 Opioid dependence, uncomplicated; G82.20 Paraplegia, unspecified; Z16.12 Extended spectrum beta lactamase (ESBL) resistance; Z68.1 Body mass index [BMI] 19.9 or less, adult; G89.4 Chronic pain syndrome; R63.6 Underweight; K31.84 Gastroparesis; B36.0 Pityriasis versicolor; D63.0 Anemia in neoplastic disease; K20.90 Esophagitis, unspecified without bleeding; K59.09 Other constipation; M24.50 Contracture, unspecified joint; N20.0 Calculus of kidney; N31.9 Neuromuscular dysfunction of bladder, unspecified; B96.20 Unspecified Escherichia coli [E. coli] as the cause of diseases classified elsewhere; Z11.52 Encounter for screening for COVID-19; Z79.899 Other long term (current) drug therapy; Z87.440 Personal history of urinary (tract) infections
CPT/HCPCS: 74176; 80048; 80053; 81003; 81015; 83605; 83690; 83735; 84100; 85025; 85027; 87040; 87077; 87086; 87186; 87502; 87811; 93005; 96361; 96374; 96375; 96376; 99285; J2185

== ENCOUNTER 2025-07-16 15:33 | Inpatient (IN) | payer OTHER, SELFPAY ==
[2025-07-16] VITALS (12 sets, daily range): BP systolic 96–121; BP diastolic 74–88
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
[2025-07-16] MEDS: ZOFRAN 4 MG IV ×2 (09:36→20:49)
[2025-07-16] MEDS: NSS 1000 IV ×3 (09:36→18:31)
[2025-07-16] MEDS: OMNIPAQUE 50 ML PO (09:36)
[2025-07-16 09:47] LABS: Hematocrit 35.5 % (39.0-52.0); Hemoglobin 11.7 g/dL (13.0-18.0); Mean Corp Hgb Conc. 33.0 g/dL (33.0-37.0); Mean Corpuscular Volume 82.2 fL (80.0-94.0); Nucleated Red Blood Cells % 0 % (-); Platelet Count 234 10^3/uL (130-400); Red Cell Dist. Width 15.1 % (11.5-14.5)
[2025-07-16 09:50] LABS: ALT (SGPT) < 10 U/L (0-50); AST (SGOT) 11 U/L (17-59); Albumin 3.1 g/dl (3.5-5.0); Alkaline Phosphatase 52 U/L (38-126); Blood Urea Nitrogen 33 mg/dl (9-20); Calcium 8.6 mg/dl (8.4-10.2); Carbon Dioxide 25 mmol/L (22-30); Chloride 109 mmol/L (98-107); Glucose 175 mg/dl (70-99); Lipase 45 U/L (23-300); Magnesium 1.7 mg/dl (1.6-2.3); Potassium 3.8 mmol/L (3.5-5.1); Sodium 139 mmol/L (135-145); Total Protein 6.0 g/dl (6.3-8.2); eGFR > 60.00
[2025-07-16] MEDS: DILAUDID 0.5 MG IV (10:00)
[2025-07-16 10:05] LABS: Urine Character Cloudy (Clear)
[2025-07-16 10:51] LABS: Urine Squamous Cell 0-2 /LPF (Few)
[2025-07-16] MEDS: REGLAN 10 MG IV (12:57)
[2025-07-16] MEDS: DILAUDID 1 MG IV ×2 (13:19→20:41)
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
--- NOTE | 2025-07-16 15:44 | CM ---
CM reviewed chart and met with pt bedside in ED. Pt lives with his mother, 2 story home, ramp access. Has first floor bedroom and bathroom. Bedbound at baseline, uses electric wheelchair. Has urostomy.
Recent admission 06/22 to 06/25, declined VN at discharge.
Confirms prescription coverage.
PCP: Bc Zaragoza
Pharmacy: [facility]
Anticipate discharge home, CM will continue to follow for all discharge planning needs.
[2025-07-16] MEDS: PROTONIX IV 40 MG IV (19:19)
[2025-07-16] MEDS: NSS (PRESERVATIVE FREE) 10 ML IV (19:19)
[2025-07-16] MEDS: LOVENOX 40 MG SC (19:19)
[2025-07-16] MEDS: NIZORAL 2% CREAM 1 APPLIC TOPICAL (20:43)
[2025-07-16] MEDS: DOLOPHINE 10 MG PO (22:35)
[2025-07-16] MEDS: ZANAFLEX 4 MG PO (22:35)
[2025-07-17] MEDS: ZOFRAN 4 MG IV ×2 (04:32→11:12)
[2025-07-17] MEDS: DILAUDID 1 MG IV (04:33)
[2025-07-17 07:30] VITALS: BP 108/61
[2025-07-17] MEDS: PROTONIX IV 40 MG IV (08:02)
[2025-07-17] MEDS: LIORESAL 20 MG PO (08:02)
[2025-07-17] MEDS: DOLOPHINE 20 MG PO ×3 (08:02→21:38)
[2025-07-17] MEDS: PAXIL PO ×2 (08:02→11:23)
[2025-07-17] MEDS: FOLVITE PO ×2 (08:02→11:25)
[2025-07-17] MEDS: NSS (PRESERVATIVE FREE) 10 ML IV (08:03)
[2025-07-17] MEDS: NIZORAL 2% CREAM 1 APPLIC TOPICAL ×2 (08:10→20:45)
[2025-07-17] MEDS: DULCOLAX 10 MG RECTAL (11:15)
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
[2025-07-17] MEDS: NSS 1000 IV (13:14)
[2025-07-17 14:39] VITALS: BMI 16.8
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
[2025-07-17] MEDS: LOVENOX 40 MG SC (17:12)
[2025-07-17] MEDS: REGLAN 10 MG IV (19:19)
[2025-07-17] MEDS: ZANAFLEX 4 MG PO (21:38)
[2025-07-17 23:00] VITALS: BP 76/44
[2025-07-17 23:12] VITALS: BP 76/44
[2025-07-17] MEDS: NSS 500 IV (23:19)
[2025-07-18] VITALS (44 sets, daily range): BP systolic 74–127; BP diastolic 44–90
--- NOTE | 2025-07-18 00:13 | W.PN.UPDATE ---
Update Note
Progress Note Update
Patient seen for low blood pressure 77/44, HR 55. Patient very pale, tired, Ox3, answers questions appropriately, denies any pain, lightheadedness, dizziness, nausea. Ordered NSS 500 ml bolus, no change in BP after bolus given. Ordered stat labs,
CBC and BMP. Started on Levophed gtt and transferred to IMU. Called and spoke to patient's mother Cheyenne Poole to advised on situation and upgrade to higher level of care. She is very appreciative of update.
Follow up CBC: Hgb 8.5/Hct 26.4 (previously 11.7/35.5), repeat am labs ordered. Type and screen ordered. Hemetest stools ordered.
[2025-07-18 00:33] LABS: Blood Urea Nitrogen 24 mg/dl (9-20); Calcium 7.2 mg/dl (8.4-10.2); Carbon Dioxide 22 mmol/L (22-30); Chloride 116 mmol/L (98-107); Estimated Creatinine Clearance 79 ml/min; Glucose 91 mg/dl (70-99); Potassium 3.7 mmol/L (3.5-5.1); Sodium 138 mmol/L (135-145); eGFR > 60.00
[2025-07-18 00:40] LABS: Hematocrit 26.4 % (39.0-52.0); Hemoglobin 8.5 g/dL (13.0-18.0); Mean Corp Hgb Conc. 32.2 g/dL (33.0-37.0); Mean Corpuscular Volume 82.0 fL (80.0-94.0); Platelet Count 147 10^3/uL (130-400); Red Cell Dist. Width 15.9 % (11.5-14.5)
[2025-07-18] MEDS: NSS 1000 IV ×2 (00:41→11:13)
[2025-07-18] MEDS: LEVOPHED 250 IV (00:44)
--- NOTE | 2025-07-18 01:15 | PTCARENOTE ---
pt. upgraded from 3W to IMU due to hypotension not responsive to 500ml bolus x1.
Started on Norepi --> See titration flowsheets for details.
Plan of care explained. All questions answered.
See assessment flowsheet for details.
[2025-07-18 01:24] LABS: Glucose - Point of Care 104 mg/dl (70-99)
[2025-07-18] MEDS: DILAUDID 1 MG IV (05:34)
[2025-07-18 05:38] LABS: Hematocrit 30.4 % (39.0-52.0); Hemoglobin 10.1 g/dL (13.0-18.0); Mean Corp Hgb Conc. 33.2 g/dL (33.0-37.0); Mean Corpuscular Volume 81.9 fL (80.0-94.0); Platelet Count 212 10^3/uL (130-400); Red Cell Dist. Width 15.9 % (11.5-14.5)
[2025-07-18 05:48] LABS: Blood Urea Nitrogen 24 mg/dl (9-20); Calcium 7.9 mg/dl (8.4-10.2); Carbon Dioxide 18 mmol/L (22-30); Chloride 116 mmol/L (98-107); Estimated Creatinine Clearance 79 ml/min; Glucose 83 mg/dl (70-99); Potassium 3.8 mmol/L (3.5-5.1); Sodium 138 mmol/L (135-145); eGFR > 60.00
[2025-07-18] MEDS: LINZESS 290 MCG PO (05:49)
--- NOTE | 2025-07-18 08:00 | PTCARENOTE ---
Received pt awake and alert.Speech is appropriate.BL low extremities contracted without sensation at baseline.SR-ST noted.IVF infusing via Sub Q port as ordered.Levophed weaned off at 0730.Decreased breath sounds noted.POX 97% on RA.c/o
nausea,requested and received Zofran as ordered.No emesis noted.No BM at this time.Ileoconduit draining yellow urine with sediment.Skin integrity as documented.Plan of care discussed.
[2025-07-18] MEDS: PAXIL 20 MG PO (08:11)
[2025-07-18] MEDS: LIORESAL 20 MG PO (08:11)
[2025-07-18] MEDS: ZOFRAN 4 MG IV ×3 (08:11→22:20)
[2025-07-18] MEDS: STERILE WATER FOR INJECTION 10 ML IV (08:12)
[2025-07-18] MEDS: ROCEPHIN 1000 MG IV (08:12)
[2025-07-18] MEDS: PROTONIX IV 40 MG IV (08:12)
[2025-07-18] MEDS: FOLVITE 1 MG PO (08:12)
[2025-07-18] MEDS: NSS (PRESERVATIVE FREE) 10 ML IV (08:12)
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
[2025-07-18] MEDS: NIZORAL 2% CREAM 1 APPLIC TOPICAL (11:12)
[2025-07-18] MEDS: DULCOLAX 10 MG RECTAL (11:13)
[2025-07-18] MEDS: DOLOPHINE PO ×3 (11:13→21:36)
[2025-07-18] MEDS: CITROMA 300 ML PO (11:13)
--- NOTE | 2025-07-18 11:27 | PN.CDI ---
CDI
- -
CDI:
Physician Documentation Request
Admit Date: 07/16/25 15:33
Dear Doctor Mansi,
Please review the following and provide your response in the progress notes.
Clinical Indicators:
Relish Maker, 07/17
#With weight loss of > 7.5% in 3 months and < 75% estimated needs > 1 month
#...pt meets AND/ASPEN criteria for moderate protein calorie malnutrition of chronic illness.
Based on the above and your clinical assessment, please provide documentation regarding the patient's nutritional status:
Moderate Protein Calorie Malnutrition of chronic illness
Other (please specify)
Unable to determine
Bevington Criteria ([facility] Hospitalist 2017)
2 or more criteria must be present for either
non severe or severe malnutrition
Note that the criteria differs related to the
presence of an acute or chronic illness
Chronic Illness
Energy Intake Non Severe: <75% for >1 month
Severe: <75% for >1 month
Weight Loss Non Severe: 5% over 1 month
7.5% over 3 months
10% over 6 months
20% over 1 year
Severe: >5% over 1 month
>7.5% over 3 months
>10% over 6 months
>20% over 1 year
Body Fat Non Severe: Mild Loss
Severe: Severe Loss
Muscle Mass Non Severe: Mild Loss
Severe: Severe Loss
Use of terms such as suspected, likely, concern for, or probable (associated with a specific diagnosis that is being evaluated, monitored, or treated as if it exists) are acceptable and can be coded in the inpatient setting, when documented at the
time of discharge.
Thank you,
Jessica Alvarado RN BSN CCDS
CDI Specialist
Please contact via tiger text
Please use your independent medical judgment in providing your response.
--- NOTE | 2025-07-18 12:42 | PTCARENOTE ---
Pt assessed. Small brown BM noted.Mag Citrate and Dulcolax suppository administered as ordered.
--- NOTE | 2025-07-18 14:47 | CM ---
Paraplegic w urostomy. Hopotensive @ 77/44. IV/AB, non-compliant with bowel regime and was non-compliant with PO AB after discharge on 06/25/25 for complicated UTI. Discharge POC: Anticipate home with no needs. Lives with mother. Patient declines
HH.
[2025-07-18] MEDS: DOLOPHINE 20 MG PO (15:09)
--- NOTE | 2025-07-18 16:38 | PTCARENOTE ---
Pt assessed.No change in assessment.c/o nausea.No emesis at this time.Incontinent large brown BM.
[2025-07-18] MEDS: LOVENOX 40 MG SC (18:13)
[2025-07-18] MEDS: REGLAN 10 MG IV (19:52)
[2025-07-18] MEDS: NIZORAL 2% CREAM TOPICAL (19:52)
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
--- NOTE | 2025-07-18 21:00 | PTCARENOTE ---
Pt arrived to 3W from ICU. Pt paraplegic, pulled over into bed 328. Pt AAOx3, flat, able to make needs known. Oriented to room with call gil in reach. Plan of care ongoing.
[2025-07-18] MEDS: ZANAFLEX PO ×2 (21:36)
[2025-07-19 03:00] VITALS: BP 91/59
[2025-07-19] MEDS: ZOFRAN 4 MG IV (04:22)
[2025-07-19] MEDS: NSS 1000 IV ×2 (05:57→15:37)
[2025-07-19 07:00] VITALS: BP 117/77
[2025-07-19] MEDS: ROCEPHIN 1000 MG IV (08:14)
[2025-07-19] MEDS: STERILE WATER FOR INJECTION 10 ML IV (08:14)
[2025-07-19] MEDS: PROTONIX IV 40 MG IV (08:14)
[2025-07-19] MEDS: NSS (PRESERVATIVE FREE) 10 ML IV (08:15)
[2025-07-19] MEDS: REGLAN 10 MG IV (08:44)
[2025-07-19 09:15] LABS: Hematocrit 30.7 % (39.0-52.0); Hemoglobin 9.9 g/dL (13.0-18.0); Mean Corp Hgb Conc. 32.2 g/dL (33.0-37.0); Mean Corpuscular Volume 83.9 fL (80.0-94.0); Nucleated Red Blood Cells % 0 % (-); Platelet Count 173 10^3/uL (130-400); Red Cell Dist. Width 16.1 % (11.5-14.5)
[2025-07-19] MEDS: PAXIL PO (09:16)
[2025-07-19] MEDS: DOLOPHINE PO (09:16)
[2025-07-19] MEDS: FOLVITE PO (09:16)
[2025-07-19] MEDS: LIORESAL PO (09:16)
[2025-07-19] MEDS: NIZORAL 2% CREAM TOPICAL ×2 (09:16→21:11)
[2025-07-19 09:28] LABS: Blood Urea Nitrogen 18 mg/dl (9-20); Calcium 7.6 mg/dl (8.4-10.2); Carbon Dioxide 15 mmol/L (22-30); Chloride 118 mmol/L (98-107); Estimated Creatinine Clearance 71 ml/min; Glucose 61 mg/dl (70-99); Potassium 3.8 mmol/L (3.5-5.1); Sodium 141 mmol/L (135-145); eGFR > 60.00
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
[2025-07-19 11:00] VITALS: BP 99/63
[2025-07-19] MEDS: NSS IV (12:55)
[2025-07-19] MEDS: SODIUM BICARBONATE 1075 MEQ IV ×2 (13:04→23:52)
[2025-07-19 15:00] VITALS: BP 90/58
[2025-07-19] MEDS: DOLOPHINE 10 MG PO ×2 (15:31→21:11)
[2025-07-19] MEDS: LOVENOX 40 MG SC (17:12)
[2025-07-19 19:36] VITALS: BP 97/61
[2025-07-19] MEDS: ZANAFLEX 4 MG PO (21:11)
[2025-07-19 23:37] VITALS: BP 87/49
[2025-07-20] VITALS (7 sets, daily range): BP systolic 91–127; BP diastolic 57–73
[2025-07-20] MEDS: REGLAN 10 MG IV (04:54)
[2025-07-20 05:13] LABS: Hematocrit 26.3 % (39.0-52.0); Hemoglobin 8.7 g/dL (13.0-18.0); Mean Corp Hgb Conc. 33.1 g/dL (33.0-37.0); Mean Corpuscular Volume 82.2 fL (80.0-94.0); Nucleated Red Blood Cells % 0 % (-); Platelet Count 132 10^3/uL (130-400); Red Cell Dist. Width 15.9 % (11.5-14.5)
[2025-07-20 05:24] LABS: Blood Urea Nitrogen 13 mg/dl (9-20); Calcium 7.0 mg/dl (8.4-10.2); Carbon Dioxide 22 mmol/L (22-30); Chloride 114 mmol/L (98-107); Estimated Creatinine Clearance 88 ml/min; Glucose 73 mg/dl (70-99); Potassium 2.9 mmol/L (3.5-5.1); Sodium 137 mmol/L (135-145); eGFR > 60.00
[2025-07-20] MEDS: KCL 40 MEQ PO (05:34)
[2025-07-20 05:55] LABS: Cortisol, Random 14.2 ug/dl
[2025-07-20] MEDS: LIORESAL 20 MG PO (09:12)
[2025-07-20] MEDS: PAXIL 20 MG PO (09:13)
[2025-07-20] MEDS: FOLVITE 1 MG PO (09:13)
[2025-07-20] MEDS: ROCEPHIN 1000 MG IV (09:14)
[2025-07-20] MEDS: DOLOPHINE 10 MG PO ×3 (09:14→20:54)
[2025-07-20] MEDS: PROTONIX IV 40 MG IV (09:14)
[2025-07-20] MEDS: STERILE WATER FOR INJECTION 10 ML IV (09:14)
[2025-07-20] MEDS: NSS (PRESERVATIVE FREE) 10 ML IV (09:14)
[2025-07-20] MEDS: NIZORAL 2% CREAM TOPICAL ×2 (09:15→20:54)
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
[2025-07-20] MEDS: D5/0.45%NSS with KCL 20 MEQ 1000 IV (10:47)
[2025-07-20] MEDS: KCL 270 MEQ IV (10:47)
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
[2025-07-20] MEDS: DILAUDID 1 MG IV ×2 (16:01→23:45)
[2025-07-20] MEDS: LOVENOX 40 MG SC (17:09)
[2025-07-20] MEDS: ZANAFLEX 4 MG PO (20:54)
[2025-07-21] MEDS: D5/0.45%NSS with KCL 20 MEQ 1000 IV ×2 (01:37→11:39)
[2025-07-21 03:11] VITALS: BP 98/60
[2025-07-21] MEDS: DILAUDID 1 MG IV ×2 (03:58→13:29)
[2025-07-21 07:00] VITALS: BP 108/65
[2025-07-21] MEDS: LIORESAL 20 MG PO (08:31)
[2025-07-21] MEDS: DOLOPHINE 10 MG PO ×3 (08:31→21:25)
[2025-07-21] MEDS: PROTONIX IV 40 MG IV (08:31)
[2025-07-21] MEDS: FOLVITE 1 MG PO (08:31)
[2025-07-21] MEDS: PAXIL 20 MG PO (08:31)
[2025-07-21] MEDS: STERILE WATER FOR INJECTION 10 ML IV (08:32)
[2025-07-21] MEDS: NIZORAL 2% CREAM TOPICAL ×2 (08:32→21:24)
[2025-07-21] MEDS: ROCEPHIN 1000 MG IV (08:32)
[2025-07-21] MEDS: NSS (PRESERVATIVE FREE) 10 ML IV (08:32)
[2025-07-21 08:56] LABS: Hematocrit 27.4 % (39.0-52.0); Hemoglobin 9.1 g/dL (13.0-18.0); Mean Corp Hgb Conc. 33.2 g/dL (33.0-37.0); Mean Corpuscular Volume 83.0 fL (80.0-94.0); Nucleated Red Blood Cells % 0 % (-); Platelet Count 119 10^3/uL (130-400); Red Cell Dist. Width 15.9 % (11.5-14.5)
[2025-07-21 09:20] LABS: Blood Urea Nitrogen 8 mg/dl (9-20); Calcium 7.2 mg/dl (8.4-10.2); Carbon Dioxide 25 mmol/L (22-30); Chloride 110 mmol/L (98-107); Estimated Creatinine Clearance 88 ml/min; Glucose 83 mg/dl (70-99); Magnesium 1.9 mg/dl (1.6-2.3); Potassium 3.6 mmol/L (3.5-5.1); Sodium 135 mmol/L (135-145); eGFR > 60.00
[2025-07-21 11:00] VITALS: BP 122/68
[2025-07-21] MEDS: DULCOLAX RECTAL (11:14)
[2025-07-21] MEDS: DULCOLAX 10 MG RECTAL (11:39)
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
[2025-07-21 15:00] VITALS: BP 120/69
[2025-07-21] MEDS: LOVENOX 40 MG SC (16:59)
[2025-07-21 19:52] VITALS: BP 110/64
[2025-07-21] MEDS: ZANAFLEX 4 MG PO (21:25)
[2025-07-21 23:25] VITALS: BP 92/59
[2025-07-22] MEDS: DILAUDID 1 MG IV ×2 (01:05→13:52)
[2025-07-22 03:29] VITALS: BP 98/65
[2025-07-22 05:41] LABS: Hematocrit 26.0 % (39.0-52.0); Hemoglobin 8.6 g/dL (13.0-18.0); Mean Corp Hgb Conc. 33.1 g/dL (33.0-37.0); Mean Corpuscular Volume 80.7 fL (80.0-94.0); Nucleated Red Blood Cells % 0 % (-); Platelet Count 112 10^3/uL (130-400); Red Cell Dist. Width 15.8 % (11.5-14.5)
[2025-07-22 06:07] LABS: Blood Urea Nitrogen 8 mg/dl (9-20); Calcium 7.0 mg/dl (8.4-10.2); Carbon Dioxide 25 mmol/L (22-30); Chloride 111 mmol/L (98-107); Estimated Creatinine Clearance 101 ml/min; Glucose 76 mg/dl (70-99); Potassium 3.2 mmol/L (3.5-5.1); Sodium 135 mmol/L (135-145); eGFR > 60.00
[2025-07-22 07:19] VITALS: BP 123/76
[2025-07-22] MEDS: NIZORAL 2% CREAM TOPICAL (07:23)
[2025-07-22] MEDS: ROCEPHIN 1000 MG IV (07:32)
[2025-07-22] MEDS: DOLOPHINE 10 MG PO ×2 (07:32→15:46)
[2025-07-22] MEDS: PAXIL PO ×2 (07:32→07:49)
[2025-07-22] MEDS: NSS (PRESERVATIVE FREE) 10 ML IV (07:33)
[2025-07-22] MEDS: STERILE WATER FOR INJECTION 10 ML IV (07:34)
[2025-07-22] MEDS: PROTONIX IV 40 MG IV (07:34)
[2025-07-22] MEDS: FOLVITE PO ×2 (07:34→07:50)
[2025-07-22] MEDS: LIORESAL 20 MG PO (07:34)
--- NOTE | 2025-07-22 10:06 | PTOTSP ---
PATIENT CONTACTED BEDSIDE. PATIENT DECLINING THE NEED FOR THERAPY AT THIS TIME AND MOVING FORWARD. PATIENT DECLINES THE NEED FOR ATTEMPTING SLIDE BOARD TRANSFER PRIOR TO BEING DISCHARGED. EDUCATED PATIENT THAT HE MAY BE WEAKER FROM BEING IN BED
HOWEVER PATIENT CONTINUED TO DECLINE THERAPY. INFORMED PATIENT THAT A JAMIR LIFT MAY BE BENEFICIAL HIS 75 YR OLD MOTHER ASSISTS WITH TRANSFER AT THIS TIME. HE STATED 'SHE ONLY DOES THE LEGS.' WILL DISCHARGE FROM THERAPY SERVICES DUE TO MULTIPLE
REFUSALS. PATIENT IN AGREEMENT WITH THIS AND RN MADE AWARE.
[2025-07-22 11:40] VITALS: BP 117/77
[2025-07-22] MEDS: KCL ELIXIR 40 MEQ PO (11:52)
--- NOTE | 2025-07-22 12:18 | CM ---
CM reviewed pt with attending- ready for dc
Bedside meeting with pt- no dc needs noted
He will alert his mother of his dc home
IMM verbally reviewed- copy provided bedside
Medical necessity completed and on chart
Discharge Disposition- home, no needs via BLS
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
--- NOTE | 2025-07-22 13:16 | W.DS.TRANS ---
DC Summary - Fire Alarm Inspector
-
Discharge Instructions:
Discharge Diagnosis/Procedures Gastroparesis
Diet Regular
Activity As tolerated
Driving Restrictions No driving
Bathing Restrictions None
Instructions:
Stand-Alone Forms:
Changes to Home Medications: No
Discharge Medications:
DC Medications w/original date entered in [facility]
baclofen 20 mg tablet 20 mg PO DAILY Muscle Spasms 02/09/23
hydromorphone 4 mg tablet (Dilaudid) 4 mg PO Q8HPRN PRN severe pain 02/09/23
methadone 10 mg tablet 20 mg PO TID Pain 02/09/23
tizanidine 4 mg tablet 4 mg PO HS Muscle Spasms 01/31/24
metoclopramide HCl 10 mg tablet 10 mg PO AC Gastrointestinal Issue 07/23/24
dasatinib 50 mg tablet 50 mg PO DAILY CML 10/30/24
bisacodyl 10 mg rectal suppository (Dulcolax (bisacodyl)) 10 mg TX SUWE Constipation 03/26/25
pantoprazole 40 mg tablet,delayed release 40 mg PO DAILY Gastrointestinal Issue 03/26/25
paroxetine HCl 20 mg tablet 20 mg PO DAILY Mental Health 03/26/25
ketoconazole 2 % topical cream 1 applic topical BID #30 grams 06/25/25
folic acid 1 mg tablet 1 mg PO DAILY Supplement 07/16/25
potassium chloride 20 mEq/15 mL oral liquid 40 meq (30 mL) PO DAILY #150 mL 07/22/25
Home Medication Changes
Pending Results: No
[2025-07-22 15:00] VITALS: BP 121/80
== END 2025-07-22 17:40 | disposition home or self-care (01) | DRG 392 ==
LOC: 3 WEST ACU 15:33
PROVIDERS: Hospitalist; Nurse Practitioner Family; Physician Assistant; ADMITTING PHYSICIAN Hospitalist; ATTENDING PHYSICIAN Hospitalist; CONSULT PHYSICIAN Internal Medicine Gastroenterology; EMERGENCY PHYSICIAN Emergency Medicine; FAMILY PHYSICIAN Family Medicine
DX: K31.84 Gastroparesis (principal); C92.10 Chronic myeloid leukemia, BCR/ABL-positive, not having achieved remission; E44.0 Moderate protein-calorie malnutrition; G82.20 Paraplegia, unspecified; F11.20 Opioid dependence, uncomplicated; Z68.1 Body mass index [BMI] 19.9 or less, adult; E87.20 Acidosis, unspecified; I95.9 Hypotension, unspecified; D63.0 Anemia in neoplastic disease; E87.6 Hypokalemia; K21.9 Gastro-esophageal reflux disease without esophagitis; G89.4 Chronic pain syndrome; R06.6 Hiccough; K59.09 Other constipation; Z87.440 Personal history of urinary (tract) infections; Z79.899 Other long term (current) drug therapy; Z91.148 Patient's other noncompliance with medication regimen for other reason; N20.0 Calculus of kidney; N31.9 Neuromuscular dysfunction of bladder, unspecified
CPT/HCPCS: 74177; 80048; 80053; 81003; 81015; 82533; 82962; 83605; 83690; 83735; 85025; 85027; 86850; 86900; 86901; 87086; 87088; 87186; 93005; 96361; 96374; 96375; 96376; 99285; J7030; Q9967

== ENCOUNTER 2025-08-26 04:49 | Inpatient (IN) | payer OTHER, SELFPAY ==
[2025-08-25 21:21] VITALS: BP 125/96
[2025-08-25 21:23] VITALS: BMI 17.7
[2025-08-25 21:24] VITALS: BP 125/96
--- NOTE | 2025-08-25 21:34 | EDRN ---
Pt arrives to ED refusing IV, states only wants port accessed. IV team contacted and now at bedside to access port. Pt informed of concern accessing port with fever and suspected infection, pt understands risk and still refusing IV.
--- NOTE | 2025-08-25 21:44 | VATNOTE ---
Called to ER to access patient's port. Per DISTRICT LEADER, patient presents with fever. Patient educated on port use; he declined having peripheral IV placed and requested port be accessed.
[2025-08-25 21:45] LABS: Hematocrit 35.3 % (39.0-52.0); Hemoglobin 11.9 g/dL (13.0-18.0); Mean Corp Hgb Conc. 33.7 g/dL (33.0-37.0); Mean Corpuscular Volume 79.7 fL (80.0-94.0); Nucleated Red Blood Cells % 0 % (-); Platelet Count 232 10^3/uL (130-400); Red Cell Dist. Width 16.6 % (11.5-14.5)
[2025-08-25] MEDS: TYLENOL/FEVERALL 650 MG RECTAL (21:45)
[2025-08-25 21:51] VITALS: BP 105/82
[2025-08-25] MEDS: NSS 1000 IV (21:51)
[2025-08-25 21:59] LABS: Urine Character Clear (Clear)
[2025-08-25 22:06] LABS: ALT (SGPT) 13 U/L (0-50); AST (SGOT) 17 U/L (17-59); Albumin 3.3 g/dl (3.5-5.0); Alkaline Phosphatase 76 U/L (38-126); Blood Urea Nitrogen 25 mg/dl (9-20); Calcium 8.5 mg/dl (8.4-10.2); Carbon Dioxide 28 mmol/L (22-30); Chloride 104 mmol/L (98-107); Estimated Creatinine Clearance 75 ml/min; Glucose 110 mg/dl (70-99); Potassium 3.9 mmol/L (3.5-5.1); Sodium 140 mmol/L (135-145); Total Protein 6.4 g/dl (6.3-8.2); eGFR > 60.00
[2025-08-25 22:10] LABS: Urine Squamous Cell 0-2 /LPF (Few); Urine White Cell >100 /HPF (0-5)
[2025-08-25 22:12] LABS: COVID-19 Antigen Negative (Negative)
[2025-08-25 22:30] VITALS: BP 121/91
[2025-08-25] MEDS: ZOFRAN 4 MG IV (22:32)
[2025-08-25] MEDS: DILAUDID 1 MG IV (22:33)
[2025-08-25 23:00] VITALS: BP 116/77
[2025-08-25 23:30] VITALS: BP 118/85
[2025-08-26] VITALS (28 sets, daily range): BP systolic 98–135; BP diastolic 65–97; BMI 17.3
[2025-08-26] MEDS: MAXIPIME 2000 MG IV (00:20)
[2025-08-26] MEDS: NSS 1000 IV (00:53)
[2025-08-26] MEDS: ZOFRAN 4 MG IV ×2 (02:44→08:27)
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
[2025-08-26] MEDS: REGLAN 10 MG IV (03:41)
[2025-08-26] MEDS: DILAUDID 1 MG IV (03:41)
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
[2025-08-26] MEDS: DULCOLAX 10 MG RECTAL (04:14)
[2025-08-26] MEDS: LR 1000 IV ×3 (05:41→22:42)
[2025-08-26 06:00] LABS: Hematocrit 31.8 % (39.0-52.0); Hemoglobin 10.1 g/dL (13.0-18.0); Mean Corp Hgb Conc. 31.8 g/dL (33.0-37.0); Mean Corpuscular Volume 84.6 fL (80.0-94.0); Platelet Count 179 10^3/uL (130-400); Red Cell Dist. Width 16.9 % (11.5-14.5)
[2025-08-26 06:07] LABS: Blood Urea Nitrogen 31 mg/dl (9-20); Calcium 7.7 mg/dl (8.4-10.2); Carbon Dioxide 20 mmol/L (22-30); Chloride 112 mmol/L (98-107); Estimated Creatinine Clearance 91 ml/min; Glucose 111 mg/dl (70-99); Iron 25 ug/dl (49-181); Sodium 140 mmol/L (135-145); eGFR > 60.00
[2025-08-26 06:12] LABS: Potassium 4.0 mmol/L (3.5-5.1)
[2025-08-26 06:16] LABS: Total Iron Binding Capacity 215 ug/dl (261-462)
[2025-08-26] MEDS: MERREM 500 MG IV ×3 (06:28→17:10)
[2025-08-26] MEDS: STERILE WATER FOR INJECTION 10 ML IV ×3 (06:28→17:10)
[2025-08-26] MEDS: CHLORASEPTIC/SORE THROAT SPRAY 1 SPRAY PO (06:31)
--- NOTE | 2025-08-26 06:39 | PTCARENOTE ---
Pt arrived from ED to ICU as IMU overflow approx 0520. Pt is AAO3, pale, flat/withdrawn. Pt has lower extremity paralysis and chronic back pain. Shallow respirations, lung sounds are clear/decreased throughout, pox 97-98% on room air. Telemetry
rhythm reveals ST, HR 110-140's, no edema, palpable pulses. HyperBS, abdomen soft. Pt reported nausea/vomiting in ED, denies current nausea. Pt received suppository in ED, pt incont small brown smear upon arrival to unit. NPO status maintained.
Urostomy draining foul smelling yellow urine w sediment noted. Skin intact. Contractures of knees/feet b/l. Complete CHG bath provided. L SQ port accessed by VAT RN in ED, IVF per order. Safe environment maintained, call gil within reach. Will
monitor closely.
[2025-08-26 06:41] LABS: Ferritin 173.0 ng/ml (17.9-464.0)
[2025-08-26] MEDS: FOLVITE PO (08:22)
[2025-08-26] MEDS: DOLOPHINE PO ×3 (08:22→22:30)
[2025-08-26] MEDS: MIRALAX PO (08:22)
[2025-08-26] MEDS: PROTONIX IV 40 MG IV ×2 (08:23→19:30)
[2025-08-26] MEDS: NSS (PRESERVATIVE FREE) 10 ML IV ×2 (08:23→19:29)
[2025-08-26] MEDS: DILAUDID 0.5 MG IV ×3 (08:27→21:13)
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
--- NOTE | 2025-08-26 09:49 | W.PN.HOSP.TC ---
Today's Communication/Plan
-
See plan
Assessment / Plan
Assessment / Plan
Impression
Patient is a 45 years old male with T4 paraplegia, chronic urostomy and chronic constipation who presents to emergency room complaining of nausea, vomiting and fever.
Intractable nausea and vomiting.
Self-limited episode of hematemesis.
Suspect gastritis/esophagitis.
Fever.
Conditions prior to admission
T4 paraplegia.
Urostomy
History of complicated urinary tract infection including ESBL pathogens
Chronic pain syndrome with opiate dependence
Chronic anemia.
CML.
Plan
Intractable nausea and vomiting.
Transient episode of hematemesis
Suspect gastritis, erosive esophagitis
Hematemesis most likely secondary to Azra-Greene tear
Chronic constipation. Possibly developing ileus related to opioids.
CT scan abdomen pelvis with IV contrast only
IMPRESSION:
1. Dilated, fluid-filled stomach. As above, there is some mild dilation of small bowel loops in the duodenum does not clearly cross the midline. Appearance unchanged from the most recent previous examination. On more remote exams, the duodenum
appears to cross the midline. Findings could be related to internal hernia rather than malrotation.
2. Large volume of stool within the rectosigmoid colon. Remainder of the colon is decompressed.
3. Diffuse wall thickening of the distal esophagus suggesting esophagitis as seen previously.
4. Previously seen gallbladder calculi are no longer identified. Small volume of gas within the decompressed gallbladder.
5. Bilateral nonobstructive nephrolithiasis as seen previously. Chronic urothelial thickening and hyperenhancement as seen previously, infection cannot be excluded. Post creation of ileal conduit.
6. Post IVC filter placement. One leg of the filter is in contact with the duodenum as above, no clear associated focal abnormal wall thickening at this level.
Currently n.p.o.
GI evaluation
IV PPI
Antiemetics
Milk of molasses enema
Given paraplegia and severe constipation requiring multiple admissions, patient offered option of colostomy in the past, although he declined.
Fever.
Looking at the CAT scan no apparent GI source.
No respiratory symptoms. Chest x-ray with no acute abnormalities. COVID-negative.
Urinalysis abnormal given urostomy.
Prior history of complicated UTI with ESBL pathogens.
Blood cultures pending
Urine cultures pending
Continue empiric antibiotics: Meropenem and monitor temperature curve.
Chronic Anemia
CML
- Hgb is improved from known baseline.
- New microcytosis - ? due to blood loss / iron deficiency. Check studies.
- Follow for changes with IVF support, etc.
- On dasatinib as an outpatient for CML. Resume on discharge.
T4 Paraplegia
Chronic Pain Syndrome
Chronic Opioid Dependence
Chronic Constipation secondary to the above
- Continue supportive care.
- Continue usual pain regimen / methadone.
- Intensify bowl regimen to improve chronic constipation and follow for results.
DVT proph: Hold acutely given concern for UGI bleeding.
Code Status: Full Code
Anticipated Discharge: 24 - 48 hours
Subjective/Interval History
-
Date of Service: August 26, 2025
Objective Data
-
Labs:
Laboratory Results
08/25/25 08/26/25
21:37 05:39
WBC 12.8 H
Hgb 10.1 L
Hct 31.8 L
Plt Count 179 D
Sodium 140 140
Potassium 3.9 4.0
Chloride 104 112 H
Carbon Dioxide 28 20 L
BUN 25 H 31 H
Creatinine 1.0 0.8
Glucose 110 H 111 H
Calcium 8.5 7.7 L
Total Bilirubin 1.1
AST 17
ALT 13
Alkaline Phosphatase 76
Vital Signs:
Vital Signs
Temp Pulse Resp BP Pulse Ox
99.1 F 107 8 109/86 98
08/26/25 07:39 08/26/25 06:30 08/26/25 06:30 08/26/25 06:00 08/26/25 06:30
I&O
08/25/25 08/26/25 08/27/25
05:59 06:59 06:59
Intake Total 100 / 100
Output Total 525 / 525
Balance -425 / -425
Physical Exam
-
General: Well Developed and No Apparent Distress
HEENT: Normocephalic, Atraumatic and Moist Mucous Membranes
Respiratory: Clear to Auscultation
Cardiac: Regular Rhythm and S1/S2; Negative Murmur, Rub or Gallop
GI: Soft, Nontender, Nondistended, Normal Bowel Sounds (Hyperactive bowel sounds) and Other (Right lower quadrant urostomy); Negative Organomegaly
Rectal: Deferred by Provider
Musculoskeletal: No Clubbing, No Cyanosis and No Edema
Skin: Negative Rash
Neuro: Nonfocal/Grossly Intact
--- NOTE | 2025-08-26 11:21 | W.PN.UPDATE ---
Update Note
Progress Note Update
Preliminary blood cultures with gram-negative bacilli 2�2
Suspect urinary source
Continue meropenem
Follow-up final blood cultures
ID consult
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
--- NOTE | 2025-08-26 13:00 | CON.ID ---
Addendum entered and electronically signed by Elizabeth Brambila MD 08/26/25 15:33:
I personally performed a history and physical exam of the patient and discussed management with the resident. I reviewed the resident's note and agree with the documented findings and plan of care HPI/CC with the following additions/corrections:
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 He presented here for coffee
ground emesis and nausea. Management of chronic constipation has been an ongoing issue for him and he has been through a number of regimens now only accepting ducolax twice a week. He reports he generally has a bowel movement following the dose.
He believes he may have missed a dose this week.
Since arrival here he has been spiking fevers to a tmax of 104, bp overall stable, HR 100s, RR teens, WBC on arrival 12.7, hgb 11.9, plt 232, L shift was present, na 140, cr 1.0, lactic acid 1.7, t bili 1.1, ast 17, alt 13, UA >100 wbc/hpf and 0-2
squamous cells, many bacteria, covid ag negative, CT a/p with IV contrast: dilated fluid filled stomach - possible internal hernia, large volume stool, chronic urothelial thickening and hyperenhancement - infection cannot be excluded
Physical Exam
General: Well Developed and No Apparent Distress
Respiratory: Clear to Auscultation
Cardiac: Regular Rhythm and S1/S2; Negative Murmur, Rub or Gallop
GI: Soft, Nontender, no tenderness around the urostomy, Nondistended, Normal Bowel Sounds, Right lower quadrant urostomy with clear urine
Musculoskeletal: No Cyanosis and No Edema
Skin: Negative Rash, port - no erythema, warmth or tenderness
A&P
E coli Bacteremia
Probable UTI
Urostomy with neurogenic bladder
Chronic constipation
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
Port
- no need to repeat blood cultures for gram negative bacteremia
- urine culture in progress
- previous cultures with ESBL E coli
- agree with meropenem
- follow clinically
AW
Original Note:
Consultation
-
Date/Time Consultation Requested: 08/26/2025 at 11:30 AM
Date/Time Consultation Performed: 08/26/2025 at 1:00 PM
Requesting Provider: Jude Valente
Performing Provider: Lennie East
Chief Complaint / Past History
Chief Complaint
Fever
History of Present Illness
Patient is a 45-year-old male with a history of T4 quadriplegia, chronic pain, and chronic constipation, urostomy, and history of multiple UTIs who presented to the emergency department with symptoms of nausea, vomiting, and fever for 3-4 days prior
to his presentation.� He noted abdominal distention during that time.� He had a fever at his long term the afternoon/evening prior to his presentation.� Patient denied any diarrhea or blood in his stool.� He mentioned experiencing some darkening
of his urine color.� Patient has a medical port in place which has been in situ for a couple of years.� In the emergency department the patient complained of burning pain in the throat and in the upper back after repeated bouts of vomiting.� In the
evening the emesis was bloody appearing/dark red/ground coffee.� He also noted that he was having a cough for the past few days prior to his presentation having developed after he started having nausea and vomiting.� On presentation at the emergency
department the patient had a temperature of 104 and was febrile, respirations elevated at 25, tachycardia with a pulse greater than 100, leukocytosis with a white blood cell count of 12.7 and a neutrophil predominance, lactic acid of 1.7, urine
analysis was 4+ occult blood, 3+ leukocyte esterase, greater than 100 urine WBCs, many bacteria, and 3+ urine albumin. �2 blood cultures were drawn. �Chest x-ray was unremarkable.� Abdomen/pelvis CT had chronic urothelial thickening and
hyperenhancement that was suspicious for infection. �Patient was given multiple fluid boluses normal saline and was given cefepime IV.� Patient was admitted for sepsis secondary to UTI. �Patient was switched to meropenem IV.� Preliminary blood
cultures came back positive for gram-negative bacilli and one positive for E. coli.
Past History
Additional Past Medical History:
Chronic myelogenous leukemia
depression
paraplegia from T4 fracture 20 years ago
chronic pain syndrome
chronic narcotic dependency
neurogenic bladder with ileal conduit
chronic constipation
colonic inertia
Additional Past Surgical History:
right ankle fracture
spinal fusion
urostomy
Allergy History:
meperidine Allergy (Verified 07/16/25 08:55)
Unknown
vancomycin Allergy (Verified 07/16/25 08:55)
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
warfarin Allergy (Verified 07/16/25 08:55)
Unknown
Medications Reviewed: Yes
Current Antibiotics:
Allergies
Allergy/AdvReac Type Severity Reaction Status Date / Time
meperidine Allergy Unknown Verified 07/16/25 08:55
vancomycin Allergy Rash/'red Verified 07/16/25 08:55
man'
syndrome
warfarin Allergy Unknown Verified 07/16/25 08:55
Home Medications
baclofen 20 mg tablet 20 mg PO DAILY Muscle Spasms 02/09/23
hydromorphone 4 mg tablet (Dilaudid) 4 mg PO Q8HPRN PRN severe pain 02/09/23
methadone 10 mg tablet 20 mg PO TID Pain 02/09/23
tizanidine 4 mg tablet 4 mg PO HS Muscle Spasms 01/31/24
metoclopramide HCl 10 mg tablet 10 mg PO AC Gastrointestinal Issue 07/23/24
bisacodyl 10 mg rectal suppository (Dulcolax (bisacodyl)) 10 mg DE SUWE Constipation 03/26/25
folic acid 1 mg tablet 1 mg PO DAILY Supplement 07/16/25
Social History
Tobacco: Non-Smoker
Alcohol: None
Drug: None
Living: With Family
Family History
Family History: Not Pertinent
Review of Systems
Review of Systems
General: Other (Fatigue)
Cardiovascular: Negative Chest Pain
Respiratory: Negative Dyspnea, Cough or Hemoptysis
Gasteroenterology: Negative Nausea (Improved since admission) or Vomiting (Improved since admission)
Endocrine: Weakness and Fatigue
Vital Signs
Temp Pulse Resp BP Pulse Ox
100.6 F H 107 8 109/86 98
08/26/25 11:02 08/26/25 06:30 08/26/25 06:30 08/26/25 06:00 08/26/25 06:30
Physical Exam
Physical Exam
Constitutional: No Acute Distress, Comfortable and Non-toxic
Eyes: No Conjunctival Hemorrhage and Sclera Anicteric
Oral: No Thrush and No Ulcers
Cardiovascular: Regular Rate and S1/S2; Negative S3/S4
Pulmonary: Non Labored; Negative Wheezes or Rales
Gastrointestinal: Soft, Non Distended, Normal Bowel Sounds, No Rebound and No Guarding
Genito-Urinary: Clear Urine and Other (Urostomy in place.); Negative Turbid Urine or Hematuria
Extremities: Negative Edema, Cyanosis or Erythema
Musculoskeletal: Other (Lower extremities contracted, angulated. No appreciable joint swelling or effusion in the knees.)
Skin: Warm and Dry; Negative Rash or Jaundice
Neurological: Awake, Alert and Oriented
Psychological: Calm
.
Lab / Diagnostic Study Results
08/26/25 05:39
08/26/25 05:39
Abs Immat Gran (auto) 0.0 10^3/uL (0-0.05) 08/25/25 21:37
Absolute Neuts (auto) 11.9 10^3/uL (1.4-6.5) H 08/25/25 21:37
Absolute Lymphs (auto) 0.2 10^3/uL (1.2-3.4) L 08/25/25 21:37
Absolute Monos (auto) 0.5 10^3/uL (0.1-0.6) 08/25/25 21:37
Absolute Basos (auto) 0.0 10^3/uL (0-0.2) 08/25/25 21:37
Immature Gran % 0.3 % (0-0.5) 08/25/25 21:37
Neutrophils % 93.6 % (42.2-75.2) H 08/25/25 21:37
Lymphocytes % 1.6 % (20.5-51.1) L 08/25/25 21:37
Monocytes % 4.2 % (1.7-9.3) 08/25/25 21:37
Eosinophils % 0.0 % (0-6) 08/25/25 21:37
Basophils % 0.3 % (0-2) 08/25/25 21:37
Lactic Acid Cancelled 08/26/25 01:30
Ur Squamous Epith Cells 0-2 /LPF (Few) 08/25/25 21:51
Microbiology Results
Micro:
08/26/25 00:13 Blood Culture - Preliminary
Blood/Venous Positive culture in progress
Gram Stain - Final
08/26/25 00:13 Blood Culture - Preliminary
Blood/Venous Escherichia coli
Gram Stain - Final
08/25/25 21:51 Influenza Types A & B (LORAINE) - Final
Nasal Swab Negative for Influenza A & B, NAAT
Negative results must be combined with clinical observations
and patient history.
Nucleic Acid Amplification test (NAAT)performed on the
[employer] platform.
08/25/25 21:51 Urine Culture - Pending
Urine
Imaging:
08/26/2025 CT abdomen/pelvis with IV contrast: Dilated, fluid-filled stomach. As above, there is some mild dilation of small bowel loops in the duodenum does not clearly cross the midline. Appearance unchanged from the most recent previous
examination. On more remote exams, the duodenum appears to cross the midline. Findings could be related to internal hernia rather than malrotation. Large volume of stool within the rectosigmoid colon. Remainder of the colon is decompressed. Diffuse
wall thickening of the distal esophagus suggesting esophagitis as seen previously. Previously seen gallbladder calculi are no longer identified. Small volume of gas within the decompressed gallbladder. Bilateral nonobstructive nephrolithiasis as
seen previously. Chronic urothelial thickening and hyperenhancement as seen previously, infection cannot be excluded. Post creation of ileal conduit. Post IVC filter placement. One leg of the filter is in contact with the duodenum as above, no clear
associated focal abnormal wall thickening at this level.
08/26/2025 chest x-ray 2 views: Lungs: The lungs are clear. Lung volumes are mildly decreased, unchanged. No pleural effusion or pneumothorax. Heart: Cardiac and mediastinal contours are unremarkable. Left chest wall port with catheter tip projecting
over the right atrium, unchanged. Osseous structures: No acute osseous abnormality. Upper thoracic posterior spinal fusion hardware is present, unchanged.
07/16/2025 CT abdomen/pelvis with and without IV contrast: No definitive acute abnormality is appreciated. Chronic bilateral renal atrophy with chronic bilateral urothelial thickening and enhancement with the wording right lower quadrant urostomy.
Acute superimposed urinary tract infection can't be excluded. Cholelithiasis; gallbladder is decompressed and contains several stones. Moderate amount of stool within the colon suggestive of constipation with mild chronic rectal wall thickening.
Short segment of concentric wall thickening within the ascending colon, likely reflect peristalsis. No free fluid within the abdomen or pelvis. Unchanged significant distention of the stomach with no suspicious wall thickening or evidence for outlet
obstruction.
06/22/2025 CT abdomen/pelvis without IV contrast: There is circumferential wall thickening along the distal esophagus which appears new from prior and may represent esophagitis. Right lower quadrant urostomy. There is unchanged mild hydronephrosis
with diffuse urothelial thickening which may be sequelae of prior ostomy, however superimposed infection is possible. Recommend correlation with urinalysis. There are numerous nonobstructing renal calculi bilaterally, similar to prior. Unchanged
marked gaseous distention of the stomach, possibly secondary to delayed gastric emptying/chronic outlet obstruction. Cholelithiasis.
03/26/2025 CT abdomen/pelvis with IV contrast: Included lung bases are predominantly clear. Marked gaseous distention of the stomach is noted, with air-fluid levels. Evaluation of the intestinal tract is limited without oral contrast, but does not
appear to have intestinal obstruction or free air. Gallstones are noted within the contracted gallbladder. No findings to suggest biliary tract dilatation. No focal adrenal enlargement. The right lower quadrant urinary diversion is seen in is
grossly nonobstructed. Liquid stool was seen in the rectum. Chronic deformity of both hips is stable. Absence of the lower sacrum and coccyx noted. Please see full dictation for additional detail. Film personally viewed
Assessment / Plan
- Complicated UTI secondary to E. coli:
- Sepsis secondary to gram-negative bacteremia:
- History of ESBL E. coli:
- Urostomy status secondary to neurogenic bladder:
Patient has prior ESBL E. coli in urine on 06/22/2025
Awaiting current urine culture, will adjust antibiotics based on sensitivities - likely UTI based on urinalysis
Continue meropenem 500 mg IV every 6 hours
--- NOTE | 2025-08-26 14:35 | PTCARENOTE ---
Patient received from night RN. AAox3 flat affect. Withdrawn. Patient refused morning Meds and requested Dilaudid for chronic back pain. Provider made aware. Patient refused his milk and molasses. Reports he will try to go on his own since he was
given and enema this am. Patient repositioned in bed and head to toe assessment performed. Patient kept NPO except Meds and sips and chips. Plan of care explained at great lengths. Patient verbalized understanding.
[2025-08-26] MEDS: SENOKOT PO (22:30)
[2025-08-27] VITALS (33 sets, daily range): BP systolic 77–127; BP diastolic 62–90; BMI 17.9
[2025-08-27] MEDS: MERREM 500 MG IV ×5 (00:51→23:19)
[2025-08-27] MEDS: STERILE WATER FOR INJECTION 10 ML IV ×5 (00:51→23:19)
[2025-08-27 03:43] LABS: Hematocrit 30.7 % (39.0-52.0); Hemoglobin 9.7 g/dL (13.0-18.0); Mean Corp Hgb Conc. 31.6 g/dL (33.0-37.0); Mean Corpuscular Volume 86.7 fL (80.0-94.0); Nucleated Red Blood Cells % 0 % (-); Platelet Count 174 10^3/uL (130-400); Red Cell Dist. Width 17.3 % (11.5-14.5)
[2025-08-27 04:13] LABS: Blood Urea Nitrogen 28 mg/dl (9-20); Calcium 8.2 mg/dl (8.4-10.2); Carbon Dioxide 11 mmol/L (22-30); Chloride 111 mmol/L (98-107); Estimated Creatinine Clearance 81 ml/min; Glucose 48 mg/dl (70-99); Potassium 3.7 mmol/L (3.5-5.1); Sodium 138 mmol/L (135-145); eGFR > 60.00
[2025-08-27 04:49] LABS: Glucose - Point of Care 48 mg/dl (70-99)
[2025-08-27] MEDS: DEXTROSE 50% SYRINGE 12.5 GRAMS IV (05:05)
[2025-08-27 05:14] LABS: Glucose - Point of Care 59 mg/dl (70-99)
--- NOTE | 2025-08-27 05:22 | W.PN.UPDATE ---
Update Note
Progress Note Update
Critical value AM labs: Blood glucose 48. Treated hypoglycemia as per protocol. Ordered Dextrose 50% 1/2 amp for hypoglycemia.
Bicarb 11. Discontinued LR @ 100 mls/hr. Ordered DW5 sodium bicarb @ 100 mls/hr. Repeat labs ordered.
[2025-08-27 05:41] LABS: Glucose - Point of Care 134 mg/dl (70-99)
[2025-08-27] MEDS: SODIUM BICARBONATE 1150 MEQ IV (06:08)
--- NOTE | 2025-08-27 06:38 | PTCARENOTE ---
Pt BG on AM labs low - hypoglycemic protocol followed x2 with 4oz fruit juice. Continued to be low [employer] notified - x1 dose IV dextrose (see MAR). Effective. Bicarb also low on labs - gtt added (see MAR).
Pt refusing PO meds until 'I can eat something real, otherwise I will just get nauseous'. Education provided on missing regular medications - pt states understanding. Pt still refusing PO meds.
[2025-08-27] MEDS: DILAUDID 0.5 MG IV (07:45)
[2025-08-27] MEDS: TYLENOL 650 MG PO (07:46)
[2025-08-27] MEDS: NSS (PRESERVATIVE FREE) 10 ML IV ×2 (07:46→20:18)
[2025-08-27] MEDS: PROTONIX IV 40 MG IV ×2 (07:46→20:18)
[2025-08-27] MEDS: MIRALAX PO ×2 (07:46→07:56)
[2025-08-27] MEDS: FOLVITE 1 MG PO (07:50)
[2025-08-27] MEDS: DOLOPHINE PO (07:56)
--- NOTE | 2025-08-27 08:34 | W.PN.ID1 ---
Date of Service
Date of Service: August 27, 2025
Today's Communication
continue meropenem
await urine culture
Assessment / Plan
E coli Bacteremia
Probable UTI
Urostomy with neurogenic bladder
Chronic constipation
Paraplegia
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
Port
- urine culture in progress
- Ecoli in 08/26 blood cultures
- previously colonized with ESBL E coli
- agree with meropenem
- follow clinically
Chief Complaint
-: Bacteremia
Subjective / Review of Systems
fever curve improving
bp stable
urine clear
no complaints
Vital Signs / Physical Exam
Vital Signs
Vital Signs
Temp Pulse Resp BP Pulse Ox
98.5 F 96 11 107/83 97
08/27/25 07:18 08/27/25 03:45 08/27/25 03:45 08/27/25 03:00 08/27/25 03:00
Physical Exam
Constitutional: No Acute Distress
Cardiovascular: Regular Rate and S1/S2; Negative Murmur or Rub
Pulmonary: Clear and Symmetric; Negative Wheezes or Rales
Gastrointestinal: Soft, Non Tender, Non Distended and Normal Bowel Sounds
Skin: Warm and Dry; Negative Rash or Jaundice
Lines: Other (urostomy clear urine, port accessed and functional - no erythema, warmth, tenderness)
Objective Data
Lab Data
Lab Results
08/27/25 03:36
Estimated Creat Clear 81 ml/min 08/27/25 03:36
Lactic Acid Cancelled 08/26/25 01:30
Total Bilirubin 1.1 mg/dl (0.2-1.3) 08/25/25 21:37
AST 17 U/L (17-59) 08/25/25 21:37
ALT 13 U/L (0-50) 08/25/25 21:37
Alkaline Phosphatase 76 U/L (38-126) 08/25/25 21:37
Most recent labs reviewed.
Micro Results:
08/26/25 00:13 Blood Culture - Preliminary
Blood/Venous Positive culture in progress
Gram Stain - Final
08/26/25 00:13 Blood Culture - Preliminary
Blood/Venous Escherichia coli
Gram Stain - Final
08/25/25 21:51 Influenza Types A & B (LORAINE) - Final
Nasal Swab Negative for Influenza A & B, NAAT
Negative results must be combined with clinical observations
and patient history.
Nucleic Acid Amplification test (NAAT)performed on the
[employer] platform.
08/25/25 21:51 Urine Culture - Pending
Urine
Imaging:
08/26/2025 CT abdomen/pelvis with IV contrast: Dilated, fluid-filled stomach. As above, there is some mild dilation of small bowel loops in the duodenum does not clearly cross the midline. Appearance unchanged from the most recent previous
examination. On more remote exams, the duodenum appears to cross the midline. Findings could be related to internal hernia rather than malrotation. Large volume of stool within the rectosigmoid colon. Remainder of the colon is decompressed. Diffuse
wall thickening of the distal esophagus suggesting esophagitis as seen previously. Previously seen gallbladder calculi are no longer identified. Small volume of gas within the decompressed gallbladder. Bilateral nonobstructive nephrolithiasis as
seen previously. Chronic urothelial thickening and hyperenhancement as seen previously, infection cannot be excluded. Post creation of ileal conduit. Post IVC filter placement. One leg of the filter is in contact with the duodenum as above, no clear
associated focal abnormal wall thickening at this level.
08/26/2025 chest x-ray 2 views: Lungs: The lungs are clear. Lung volumes are mildly decreased, unchanged. No pleural effusion or pneumothorax. Heart: Cardiac and mediastinal contours are unremarkable. Left chest wall port with catheter tip projecting
over the right atrium, unchanged. Osseous structures: No acute osseous abnormality. Upper thoracic posterior spinal fusion hardware is present, unchanged.
07/16/2025 CT abdomen/pelvis with and without IV contrast: No definitive acute abnormality is appreciated. Chronic bilateral renal atrophy with chronic bilateral urothelial thickening and enhancement with the wording right lower quadrant urostomy.
Acute superimposed urinary tract infection can't be excluded. Cholelithiasis; gallbladder is decompressed and contains several stones. Moderate amount of stool within the colon suggestive of constipation with mild chronic rectal wall thickening.
Short segment of concentric wall thickening within the ascending colon, likely reflect peristalsis. No free fluid within the abdomen or pelvis. Unchanged significant distention of the stomach with no suspicious wall thickening or evidence for outlet
obstruction.
06/22/2025 CT abdomen/pelvis without IV contrast: There is circumferential wall thickening along the distal esophagus which appears new from prior and may represent esophagitis. Right lower quadrant urostomy. There is unchanged mild hydronephrosis
with diffuse urothelial thickening which may be sequelae of prior ostomy, however superimposed infection is possible. Recommend correlation with urinalysis. There are numerous nonobstructing renal calculi bilaterally, similar to prior. Unchanged
marked gaseous distention of the stomach, possibly secondary to delayed gastric emptying/chronic outlet obstruction. Cholelithiasis.
03/26/2025 CT abdomen/pelvis with IV contrast: Included lung bases are predominantly clear. Marked gaseous distention of the stomach is noted, with air-fluid levels. Evaluation of the intestinal tract is limited without oral contrast, but does not
appear to have intestinal obstruction or free air. Gallstones are noted within the contracted gallbladder. No findings to suggest biliary tract dilatation. No focal adrenal enlargement. The right lower quadrant urinary diversion is seen in is
grossly nonobstructed. Liquid stool was seen in the rectum. Chronic deformity of both hips is stable. Absence of the lower sacrum and coccyx noted. Please see full dictation for additional detail. Film personally viewed
[2025-08-27 08:52] LABS: Glucose - Point of Care 118 mg/dl (70-99)
--- NOTE | 2025-08-27 09:19 | W.PN.HOSP.TC ---
Today's Communication/Plan
-
Check lactic acid and cortisol level
IV fluids with bicarbonate
Clear liquid diet and advance as per GI
IV PPI for another 24 hours
Follow hemoglobin
Reintroduce Reglan
IV antibiotics pending final cultures and sensitivities
Wean off IV hydromorphone transition to preadmission oral regimen with methadone and oral hydromorphone
Assessment / Plan
Assessment / Plan
Impression
Patient is a 45 years old male with T4 paraplegia, chronic urostomy and chronic constipation who presents to emergency room complaining of nausea, vomiting and fever.
Intractable nausea and vomiting.
Self-limited episode of hematemesis.
Suspect gastritis/esophagitis.
E. coli bacteremia with most likely source complicated UTI in patient with urostomy
Acute on chronic metabolic acidosis with elevated anion gap
Conditions prior to admission
T4 paraplegia.
Urostomy
History of complicated urinary tract infection including ESBL pathogens
Chronic pain syndrome with opiate dependence
Chronic anemia.
CML.
Plan
Intractable nausea and vomiting.
Transient episode of hematemesis
Suspect gastritis, erosive esophagitis
Hematemesis most likely secondary to Azra-Greene tear
Chronic constipation. Possibly developing ileus related to opioids.
CT scan abdomen pelvis with IV contrast only
IMPRESSION:
1. Dilated, fluid-filled stomach. As above, there is some mild dilation of small bowel loops in the duodenum does not clearly cross the midline. Appearance unchanged from the most recent previous examination. On more remote exams, the duodenum
appears to cross the midline. Findings could be related to internal hernia rather than malrotation.
2. Large volume of stool within the rectosigmoid colon. Remainder of the colon is decompressed.
3. Diffuse wall thickening of the distal esophagus suggesting esophagitis as seen previously.
4. Previously seen gallbladder calculi are no longer identified. Small volume of gas within the decompressed gallbladder.
5. Bilateral nonobstructive nephrolithiasis as seen previously. Chronic urothelial thickening and hyperenhancement as seen previously, infection cannot be excluded. Post creation of ileal conduit.
6. Post IVC filter placement. One leg of the filter is in contact with the duodenum as above, no clear associated focal abnormal wall thickening at this level.
Nausea and vomiting improved
Established bowel regimen with large BM on 08/26.
Hemoglobin has remained stable with no evidence of brisk GI bleed.
Continue IV PPI for another 24 hours
Clear liquid diet
Given paraplegia and severe constipation requiring multiple admissions, patient offered option of colostomy in the past, although he declined.
Complicated UTI in patient with urostomy
E. coli bacteremia
Final blood cultures and urine cultures pending
Continue meropenem
Acute on chronic metabolic acidosis with now elevated anion gap
This is also likely in the settings of GI losses via urostomy
Hemodynamically stable
Check lactic acid level
Initiated on alkalinized IV fluids
Follow BMP
Transient hypoglycemia suspect secondary to n.p.o. status
Status post D50
Cortisol level pending
Chronic Anemia
CML
- Hgb is improved from known baseline.
- New microcytosis - ? due to blood loss / iron deficiency. Check studies.
- Follow for changes with IVF support, etc.
- On dasatinib as an outpatient for CML. Resume on discharge.
T4 Paraplegia
Chronic Pain Syndrome
Chronic Opioid Dependence
Chronic Constipation secondary to the above
- Continue supportive care.
- Continue usual pain regimen / methadone.
- Intensify bowl regimen to improve chronic constipation and follow for results.
DVT proph: Hold acutely given concern for UGI bleeding.
Code Status: Full Code
Anticipated Discharge: > 48 hours
Subjective/Interval History
-
Date of Service: August 27, 2025
Objective Data
-
Labs:
Laboratory Results
08/27/25 08/27/25
03:36 14:00
WBC 9.6
Hgb 9.7 L
Hct 30.7 L
Plt Count 174
Sodium 138 Pending
Potassium 3.7 Pending
Chloride 111 H Pending
Carbon Dioxide 11 L* Pending
BUN 28 H Pending
Creatinine 0.9 Pending
Glucose 48 L* Pending
Calcium 8.2 L Pending
Vital Signs:
Vital Signs
Temp Pulse Resp BP Pulse Ox
98.5 F 96 11 107/83 97
08/27/25 07:18 08/27/25 03:45 08/27/25 03:45 08/27/25 03:00 08/27/25 03:00
I&O
08/26/25 08/27/25 08/28/25
06:59 06:59 06:59
Intake Total 100 / 120 2230 / 2230
Output Total 525 / 525 1350 / 1350
Balance -425 / -405 880 / 880
Physical Exam
-
General: Well Developed and No Apparent Distress
HEENT: Normocephalic, Atraumatic and Moist Mucous Membranes
Respiratory: Clear to Auscultation
Cardiac: Regular Rhythm and S1/S2; Negative Murmur, Rub or Gallop
GI: Soft, Nontender, Nondistended, Normal Bowel Sounds (Hyperactive bowel sounds) and Other (Right lower quadrant urostomy); Negative Organomegaly
Rectal: Deferred by Provider
Musculoskeletal: No Clubbing, No Cyanosis and No Edema
Skin: Negative Rash
Neuro: Nonfocal/Grossly Intact
[2025-08-27 11:35] LABS: Cortisol, Random 47.1 ug/dl
[2025-08-27] MEDS: REGLAN 10 MG PO ×2 (12:36→16:18)
--- NOTE | 2025-08-27 13:25 | PTCARENOTE ---
alert and oriented , flat affect , refusing methadone this am , only wants IV Dilaudid for pain , he is now written for clear liquid diet and is currently tolerating well, labs noted, he continues with D5w 150 mEq of bicarb gtt for IVF , anion gap
16.0 this am
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
[2025-08-27 16:06] LABS: Blood Urea Nitrogen 27 mg/dl (9-20); Calcium 7.3 mg/dl (8.4-10.2); Carbon Dioxide 24 mmol/L (22-30); Chloride 102 mmol/L (98-107); Estimated Creatinine Clearance 84 ml/min; Glucose 195 mg/dl (70-99); Potassium 3.0 mmol/L (3.5-5.1); Sodium 133 mmol/L (135-145); eGFR > 60.00
[2025-08-27] MEDS: DOLOPHINE 20 MG PO ×2 (16:18→21:34)
[2025-08-27] MEDS: KLOR-CON 40 MEQ PO (16:26)
--- NOTE | 2025-08-27 16:45 | PTCARENOTE ---
recent chemistry labs given to Dr Valente , current IVF DC , pt given 40 meq of potassium chloride due to a potassium level of 3.0 , diet was increased to full liquid diet
[2025-08-27] MEDS: MAALOX 30 ML PO (18:40)
--- NOTE | 2025-08-27 18:41 | PTCARENOTE ---
pt co heartburn from taking oral potassium powder , Dr Peterson notified and he was given Maalox as ordered x 1
[2025-08-27] MEDS: SENOKOT PO (21:18)
--- NOTE | 2025-08-27 22:10 | PTCARENOTE ---
Patient aao x3, denies pain at start of shift. Refused Senna and requested Zanaflex stating he takes that at home for spasms. Home med list reviewed, message sent to Kristi MONTIEL. Order placed for Zanaflex, will administer when received from
pharmacy. Patient denies needs at this time. Refusing turning and repositioning, education provided, continues to refuse. Call gil within reach, will continue to monitor.
[2025-08-27] MEDS: ZANAFLEX 4 MG PO (23:19)
[2025-08-28] VITALS (41 sets, daily range): BP systolic 64–120; BP diastolic 43–84; BMI 19.0
--- NOTE | 2025-08-28 00:12 | PTCARENOTE ---
Patient bp low around midnight, 60's/40's. Patient received Zanaflex after 2300, upon receipt from pharmacy. Patient stated at that time that Zanaflex makes patient lethargic and sleepy. At this time patient responsive, awakens to verbal stimuli,
conversation appropriate.
RN notified Kristi MONTIEL of low bp post Zanaflex administration. Awaiting further instruction/orders. Will continue to monitor closely.
[2025-08-28] MEDS: LR 500 IV ×2 (00:18→01:19)
[2025-08-28 01:18] LABS: Glucose - Point of Care 123 mg/dl (70-99)
[2025-08-28 02:03] LABS: Blood Urea Nitrogen 22 mg/dl (9-20); Calcium 7.1 mg/dl (8.4-10.2); Carbon Dioxide 28 mmol/L (22-30); Chloride 105 mmol/L (98-107); Estimated Creatinine Clearance 95 ml/min; Glucose 122 mg/dl (70-99); Potassium 3.6 mmol/L (3.5-5.1); Sodium 133 mmol/L (135-145); eGFR > 60.00
--- NOTE | 2025-08-28 02:10 | PTCARENOTE ---
Second bolus and Midodrine 10mg po ordered and administered this am. Patient orienting appropriately when awake. BROADCAST OPERATIONS DIRECTOR updated with current vs; 76/58 (66), 54. Will continue to monitor patient closely.
[2025-08-28 02:13] LABS: Hematocrit 20.1 % (39.0-52.0); Hemoglobin 6.7 g/dL (13.0-18.0); Mean Corp Hgb Conc. 33.3 g/dL (33.0-37.0); Mean Corpuscular Volume 79.1 fL (80.0-94.0); Nucleated Red Blood Cells % 0 % (-); Platelet Count 109 10^3/uL (130-400); Red Cell Dist. Width 16.5 % (11.5-14.5)
[2025-08-28 02:40] LABS: Hematocrit 22.0 % (39.0-52.0); Hemoglobin 7.3 g/dL (13.0-18.0)
[2025-08-28] MEDS: CALCIUM GLUCONATE 100 IV (03:34)
[2025-08-28] MEDS: LR 1000 IV (04:39)
[2025-08-28] MEDS: STERILE WATER FOR INJECTION 10 ML IV ×4 (05:20→23:34)
[2025-08-28] MEDS: MERREM 500 MG IV ×4 (05:20→23:34)
--- NOTE | 2025-08-28 06:15 | PTCARENOTE ---
Patient refused RN assistance with repositioning all shift. Patient states that he repositions himself by pulling on the side rails. Patients Ca low, currently being repleated. Hgb decreased this am, repeated labs, redraw >7. When asked, patient
states that he is not aware when he has a BM. RN attempted to assess if patient had a BM, patient refuses and states that he did not have a BM as he did not have a suppository. This RN explained concern for GIB d/to decrease in hgb, education
provided, patient continues to refuse. Will update oncoming rn.
--- NOTE | 2025-08-28 06:24 | W.PN.UPDATE ---
Update Note
Progress Note Update
RN asked provider for zanaflax that pt takes at home for spasms (pt paraplegic). Zanaflex ordered. About an hour later. PT noted to be hypotensive with sbp in 60s mentating ok just drowsy. Tell nurse he gets like this sometimes. Last admit he did
same and was transferred to higher level of care for pressors but only needed for a couple hours.
LR boluses x2 ordered, midorine 10mg ordered. BP slowly coming up.
[2025-08-28] MEDS: MIRALAX 17 GRAMS PO (08:36)
[2025-08-28] MEDS: FOLVITE 1 MG PO (08:36)
[2025-08-28] MEDS: DOLOPHINE 20 MG PO ×3 (08:36→22:05)
[2025-08-28] MEDS: NSS (PRESERVATIVE FREE) 10 ML IV ×2 (08:36→19:54)
[2025-08-28] MEDS: PROTONIX IV 40 MG IV ×2 (08:37→19:54)
[2025-08-28] MEDS: REGLAN 10 MG PO ×3 (08:37→15:48)
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
--- NOTE | 2025-08-28 11:13 | W.PN.HOSP.TC ---
Today's Communication/Plan
-
Reglan
Bowel regimen
IV antibiotics pending final cultures and sensitivities
Assessment / Plan
Assessment / Plan
Impression
Patient is a 45 years old male with T4 paraplegia, chronic urostomy and chronic constipation who presents to emergency room complaining of nausea, vomiting and fever.
Intractable nausea and vomiting.
Self-limited episode of hematemesis.
Suspect gastritis/esophagitis.
E. coli bacteremia with most likely source complicated UTI in patient with urostomy
Acute on chronic metabolic acidosis with elevated anion gap
Conditions prior to admission
T4 paraplegia.
Urostomy
History of complicated urinary tract infection including ESBL pathogens
Chronic pain syndrome with opiate dependence
Chronic anemia.
CML.
Plan
Intractable nausea and vomiting.
Transient episode of hematemesis
Suspect gastritis, erosive esophagitis
Hematemesis most likely secondary to Azra-Greene tear
Chronic constipation. Possibly developing ileus related to opioids.
CT scan abdomen pelvis with IV contrast only
IMPRESSION:
1. Dilated, fluid-filled stomach. As above, there is some mild dilation of small bowel loops in the duodenum does not clearly cross the midline. Appearance unchanged from the most recent previous examination. On more remote exams, the duodenum
appears to cross the midline. Findings could be related to internal hernia rather than malrotation.
2. Large volume of stool within the rectosigmoid colon. Remainder of the colon is decompressed.
3. Diffuse wall thickening of the distal esophagus suggesting esophagitis as seen previously.
4. Previously seen gallbladder calculi are no longer identified. Small volume of gas within the decompressed gallbladder.
5. Bilateral nonobstructive nephrolithiasis as seen previously. Chronic urothelial thickening and hyperenhancement as seen previously, infection cannot be excluded. Post creation of ileal conduit.
6. Post IVC filter placement. One leg of the filter is in contact with the duodenum as above, no clear associated focal abnormal wall thickening at this level.
Nausea and vomiting improved
Established bowel regimen with large BM on 08/26.
Reintroduced to Reglan
Hemoglobin has remained stable with no evidence of brisk GI bleed.
Continue IV PPI for another 24 hours
Advance diet as tolerates
Given paraplegia and severe constipation requiring multiple admissions, patient offered option of colostomy in the past, although he declined.
Complicated UTI in patient with urostomy
E. coli bacteremia
Final blood cultures and urine cultures pending
Continue meropenem
Acute on chronic metabolic acidosis with now elevated anion gap
This is also likely in the settings of GI losses via urostomy
Hemodynamically stable
Check lactic acid level
Initiated on alkalinized IV fluids
Follow BMP
Transient hypoglycemia suspect secondary to n.p.o. status
Status post D50
Cortisol level pending
Chronic Anemia
CML
- Hgb is improved from known baseline.
- New microcytosis - ? due to blood loss / iron deficiency. Check studies.
- Follow for changes with IVF support, etc.
- On dasatinib as an outpatient for CML. Resume on discharge.
T4 Paraplegia
Chronic Pain Syndrome
Chronic Opioid Dependence
Chronic Constipation secondary to the above
- Continue supportive care.
- Continue usual pain regimen / methadone.
- Intensify bowl regimen to improve chronic constipation and follow for results.
DVT proph: Hold acutely given concern for UGI bleeding.
Code Status: Full Code
Anticipated Discharge: 24 - 48 hours
Subjective/Interval History
-
Date of Service: August 28, 2025
Objective Data
-
Labs:
Laboratory Results
08/28/25 08/28/25
01:30 02:32
WBC 3.7 L
Hgb 6.7 L* D 7.3 L
Hct 20.1 L* 22.0 L
Plt Count 109 L D
Sodium 133 L
Potassium 3.6
Chloride 105
Carbon Dioxide 28
BUN 22 H
Creatinine 0.8
Glucose 122 H
Calcium 7.1 L
Vital Signs:
Vital Signs
Temp Pulse Resp BP Pulse Ox
98.1 F 50 10 87/61 98
08/28/25 07:33 08/28/25 06:15 08/28/25 06:15 08/28/25 06:00 08/28/25 00:10
I&O
08/27/25 08/28/25 08/29/25
06:59 06:59 06:59
Intake Total 2230 / 2230 3350 / 3350
Output Total 1350 / 1350 900 / 900
Balance 880 / 880 2450 / 2450
Physical Exam
-
General: Well Developed and No Apparent Distress
HEENT: Normocephalic, Atraumatic and Moist Mucous Membranes
Respiratory: Clear to Auscultation
Cardiac: Regular Rhythm and S1/S2; Negative Murmur, Rub or Gallop
GI: Soft, Nontender, Nondistended, Normal Bowel Sounds (Hyperactive bowel sounds) and Other (Right lower quadrant urostomy); Negative Organomegaly
Rectal: Deferred by Provider
Musculoskeletal: No Clubbing, No Cyanosis and No Edema
Skin: Negative Rash
Neuro: Nonfocal/Grossly Intact
--- NOTE | 2025-08-28 13:00 | W.PN.ID1 ---
Addendum entered and electronically signed by Elizabeth Brambila MD 08/28/25 16:03:
I saw and evaluated the patient. I reviewed the resident�s note and agree with findings and plan as documented in the resident�s note.
S: overnight was hypotensive after zanaflex and started on midodrine and LR bolus
O:
VS: remains afebrile, hypotensive this AM
Physical Exam
Constitutional: No Acute Distress
Cardiovascular: Regular Rate and S1/S2; Negative Murmur or Rub
Pulmonary: Clear and Symmetric; Negative Wheezes or Rales
Gastrointestinal: Soft, Non Tender, Non Distended and Normal Bowel Sounds
Skin: Warm and Dry; Negative Rash or Jaundice
Lines: Other (urostomy clear urine, port accessed and functional - no erythema, warmth, tenderness)
Labs: notably wbc 3.7, hgb 7.3, plt 109, L shift resolved Na 133, CO2 28, cr 0.8
urine culture polymicrobial
A&P
E coli Bacteremia
Probable UTI
Urostomy with neurogenic bladder
Chronic constipation
Paraplegia
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
Port
- suspect UTI vs translocation
- agree with meropenem for present, likely deescalation to oral doxycycline tomorrow pending clinical course
- follow clinically
AW
Original Note:
Date of Service
Date of Service: August 28, 2025
Today's Communication
Continue meropenem 500 mg IV every 6 hours
Plan to transition to oral doxycycline at time of discharge based on sensitivities
Assessment / Plan
- Complicated UTI secondary to E. coli:
- Sepsis secondary to gram-negative bacteremia:
- History of ESBL E. coli:
- Urostomy status secondary to neurogenic bladder:
Patient has prior ESBL E. coli in urine on 06/22/2025
Blood cultures positive for E. coli on 08/26
Urine culture resulted E. coli with sensitivity to meropenem
Blood culture resulted E. coli with sensitivity to meropenem
Continue meropenem 500 mg IV every 6 hours
Plan to transition to oral doxycycline at time of discharge based on sensitivities
Chief Complaint
-: Bacteremia
Subjective / Review of Systems
Met with patient at the bedside. He states that he believes that he is making steady progress in his recovery. He denies any shortness of breath, chest pain or chest tightness. He feels like he is back at baseline.
Review of Systems: No Fever, No Chills, No Headache, No Pharyngitis and No Stiff Neck
Vital Signs / Physical Exam
Vital Signs
Vital Signs
Temp Pulse Resp BP Pulse Ox
98.1 F 87 16 106/84 98
08/28/25 15:31 08/28/25 15:30 08/28/25 15:30 08/28/25 15:30 08/28/25 13:42
Physical Exam
Constitutional: No Acute Distress
Cardiovascular: Regular Rate and S1/S2; Negative Murmur or Rub
Pulmonary: Clear and Symmetric; Negative Wheezes or Rales
Gastrointestinal: Soft, Non Tender, Non Distended and Normal Bowel Sounds
Genito-Urinary: Clear Urine and Other (Urostomy in place on the right lower quadrant)
Extremities: Other (Lower extremities contracted, angulated. No appreciable joint swelling or effusion in the knees)
Skin: Warm and Dry; Negative Rash or Jaundice
Neurological: Awake, Alert and Oriented
Psychological: Calm
Lines: Other (urostomy clear urine, port accessed and functional - no erythema, warmth, tenderness)
Objective Data
Lab Data
Lab Results
08/28/25 02:32
08/28/25 01:30
Estimated Creat Clear 95 ml/min 08/28/25 01:30
Lactic Acid 0.6 mmol/L (0.7-2.0) L 08/27/25 10:29
Total Bilirubin 1.1 mg/dl (0.2-1.3) 08/25/25 21:37
AST 17 U/L (17-59) 08/25/25 21:37
ALT 13 U/L (0-50) 08/25/25 21:37
Alkaline Phosphatase 76 U/L (38-126) 08/25/25 21:37
Most recent labs reviewed.
Micro Results:
08/26/25 00:13 Blood Culture - Final
Blood/Venous Escherichia coli
Gram Stain - Final
08/26/25 00:13 Blood Culture - Final
Blood/Venous Escherichia coli
Gram Stain - Final
08/25/25 21:51 Urine Culture - Final
Urine
08/25/25 21:51 Influenza Types A & B (LORAINE) - Final
Nasal Swab Negative for Influenza A & B, NAAT
Negative results must be combined with clinical observations
and patient history.
Nucleic Acid Amplification test (NAAT)performed on the
[employer] platform.
Imaging:
08/26/2025 CT abdomen/pelvis with IV contrast: Dilated, fluid-filled stomach. As above, there is some mild dilation of small bowel loops in the duodenum does not clearly cross the midline. Appearance unchanged from the most recent previous
examination. On more remote exams, the duodenum appears to cross the midline. Findings could be related to internal hernia rather than malrotation. Large volume of stool within the rectosigmoid colon. Remainder of the colon is decompressed. Diffuse
wall thickening of the distal esophagus suggesting esophagitis as seen previously. Previously seen gallbladder calculi are no longer identified. Small volume of gas within the decompressed gallbladder. Bilateral nonobstructive nephrolithiasis as
seen previously. Chronic urothelial thickening and hyperenhancement as seen previously, infection cannot be excluded. Post creation of ileal conduit. Post IVC filter placement. One leg of the filter is in contact with the duodenum as above, no clear
associated focal abnormal wall thickening at this level.
08/26/2025 chest x-ray 2 views: Lungs: The lungs are clear. Lung volumes are mildly decreased, unchanged. No pleural effusion or pneumothorax. Heart: Cardiac and mediastinal contours are unremarkable. Left chest wall port with catheter tip projecting
over the right atrium, unchanged. Osseous structures: No acute osseous abnormality. Upper thoracic posterior spinal fusion hardware is present, unchanged.
07/16/2025 CT abdomen/pelvis with and without IV contrast: No definitive acute abnormality is appreciated. Chronic bilateral renal atrophy with chronic bilateral urothelial thickening and enhancement with the wording right lower quadrant urostomy.
Acute superimposed urinary tract infection can't be excluded. Cholelithiasis; gallbladder is decompressed and contains several stones. Moderate amount of stool within the colon suggestive of constipation with mild chronic rectal wall thickening.
Short segment of concentric wall thickening within the ascending colon, likely reflect peristalsis. No free fluid within the abdomen or pelvis. Unchanged significant distention of the stomach with no suspicious wall thickening or evidence for outlet
obstruction.
06/22/2025 CT abdomen/pelvis without IV contrast: There is circumferential wall thickening along the distal esophagus which appears new from prior and may represent esophagitis. Right lower quadrant urostomy. There is unchanged mild hydronephrosis
with diffuse urothelial thickening which may be sequelae of prior ostomy, however superimposed infection is possible. Recommend correlation with urinalysis. There are numerous nonobstructing renal calculi bilaterally, similar to prior. Unchanged
marked gaseous distention of the stomach, possibly secondary to delayed gastric emptying/chronic outlet obstruction. Cholelithiasis.
03/26/2025 CT abdomen/pelvis with IV contrast: Included lung bases are predominantly clear. Marked gaseous distention of the stomach is noted, with air-fluid levels. Evaluation of the intestinal tract is limited without oral contrast, but does not
appear to have intestinal obstruction or free air. Gallstones are noted within the contracted gallbladder. No findings to suggest biliary tract dilatation. No focal adrenal enlargement. The right lower quadrant urinary diversion is seen in is
grossly nonobstructed. Liquid stool was seen in the rectum. Chronic deformity of both hips is stable. Absence of the lower sacrum and coccyx noted. Please see full dictation for additional detail. Film personally viewed
--- NOTE | 2025-08-28 16:41 | CM ---
Transferred to Room 431. IV/Merrem. Discharge POC: Anticipate home with no additional services.
--- NOTE | 2025-08-28 17:35 | PTCARENOTE ---
Patient received to 431 awake alert oriented. Able to make his needs known. Oriented to unit.
[2025-08-28] MEDS: DULCOLAX 10 MG RECTAL (20:03)
[2025-08-28] MEDS: SENOKOT 17.2 MG PO (22:05)
[2025-08-29 04:37] LABS: Hematocrit 22.8 % (39.0-52.0); Hemoglobin 7.4 g/dL (13.0-18.0); Mean Corp Hgb Conc. 32.5 g/dL (33.0-37.0); Mean Corpuscular Volume 80.0 fL (80.0-94.0); Nucleated Red Blood Cells % 0 % (-); Platelet Count 106 10^3/uL (130-400); Red Cell Dist. Width 16.2 % (11.5-14.5)
[2025-08-29 05:26] LABS: Blood Urea Nitrogen 16 mg/dl (9-20); Calcium 7.3 mg/dl (8.4-10.2); Carbon Dioxide 28 mmol/L (22-30); Chloride 106 mmol/L (98-107); Estimated Creatinine Clearance 114 ml/min; Glucose 84 mg/dl (70-99); Potassium 3.4 mmol/L (3.5-5.1); Sodium 132 mmol/L (135-145); eGFR > 60.00
[2025-08-29] MEDS: STERILE WATER FOR INJECTION 10 ML IV (05:41)
[2025-08-29] MEDS: MERREM 500 MG IV (05:41)
[2025-08-29 06:00] VITALS: BMI 18.7
[2025-08-29 07:30] VITALS: BP 103/65
[2025-08-29] MEDS: REGLAN PO (08:16)
[2025-08-29] MEDS: DOLOPHINE 20 MG PO ×2 (08:16→16:15)
[2025-08-29] MEDS: MIRALAX PO (08:17)
[2025-08-29] MEDS: NSS (PRESERVATIVE FREE) 10 ML IV (08:18)
[2025-08-29] MEDS: FOLVITE 1 MG PO (08:18)
[2025-08-29] MEDS: PROTONIX IV 40 MG IV (08:19)
--- NOTE | 2025-08-29 09:30 | W.PN.ID1 ---
Date of Service
Date of Service: August 29, 2025
Today's Communication
Meropenem discontinued
Doxycycline 100 mg twice daily started.
Assessment / Plan
- Complicated UTI secondary to E. coli:
- Sepsis secondary to gram-negative bacteremia:
- History of ESBL E. coli:
- Urostomy status secondary to neurogenic bladder:
Patient has prior ESBL E. coli in urine on 06/22/2025
Blood cultures positive for E. coli on 08/26
Urine culture resulted E. coli with sensitivity to meropenem
Blood culture resulted E. coli with sensitivity to meropenem
Meropenem discontinued
Doxycycline 100 mg twice daily started. Patient should take medication with food to avoid nausea as he has a history of nausea
Chief Complaint
-: Bacteremia
Subjective / Review of Systems
Met with patient at the bedside. Overall he is doing well and offers no complaints at the present time. I discussed the likelihood of him possibly being discharged on doxycycline oral antibiotic but unfortunately the patient stated that he has a
history of upset stomach when on oral doxycycline.
Review of Systems: No Fever, No Chills, No Headache, No Pharyngitis and No Stiff Neck
Vital Signs / Physical Exam
Vital Signs
Vital Signs
Temp Pulse Resp BP Pulse Ox
98.2 F 83 16 103/65 95
08/29/25 07:30 08/29/25 07:30 08/29/25 07:30 08/29/25 07:30 08/29/25 07:30
Physical Exam
Constitutional: No Acute Distress
Cardiovascular: Regular Rate and S1/S2; Negative Murmur or Rub
Pulmonary: Clear and Symmetric; Negative Wheezes or Rales
Gastrointestinal: Soft, Non Tender, Non Distended and Normal Bowel Sounds
Genito-Urinary: Clear Urine and Other (Urostomy in place on the right lower quadrant)
Extremities: Other (Lower extremities contracted, angulated. No appreciable joint swelling or effusion in the knees)
Skin: Warm and Dry; Negative Rash or Jaundice
Neurological: Awake, Alert and Oriented
Psychological: Calm
Lines: Other (urostomy clear urine, port accessed and functional - no erythema, warmth, tenderness)
Objective Data
Lab Data
Lab Results
08/29/25 04:29
08/29/25 04:29
Estimated Creat Clear 114 ml/min 08/29/25 04:29
Lactic Acid 0.6 mmol/L (0.7-2.0) L 08/27/25 10:29
Total Bilirubin 1.1 mg/dl (0.2-1.3) 08/25/25 21:37
AST 17 U/L (17-59) 08/25/25 21:37
ALT 13 U/L (0-50) 08/25/25 21:37
Alkaline Phosphatase 76 U/L (38-126) 08/25/25 21:37
Most recent labs reviewed.
Micro Results:
08/26/25 00:13 Blood Culture - Final
Blood/Venous Escherichia coli
Gram Stain - Final
08/26/25 00:13 Blood Culture - Final
Blood/Venous Escherichia coli
Gram Stain - Final
08/25/25 21:51 Urine Culture - Final
Urine
08/25/25 21:51 Influenza Types A & B (LORAINE) - Final
Nasal Swab Negative for Influenza A & B, NAAT
Negative results must be combined with clinical observations
and patient history.
Nucleic Acid Amplification test (NAAT)performed on the
[employer] platform.
Imaging:
08/26/2025 CT abdomen/pelvis with IV contrast: Dilated, fluid-filled stomach. As above, there is some mild dilation of small bowel loops in the duodenum does not clearly cross the midline. Appearance unchanged from the most recent previous
examination. On more remote exams, the duodenum appears to cross the midline. Findings could be related to internal hernia rather than malrotation. Large volume of stool within the rectosigmoid colon. Remainder of the colon is decompressed. Diffuse
wall thickening of the distal esophagus suggesting esophagitis as seen previously. Previously seen gallbladder calculi are no longer identified. Small volume of gas within the decompressed gallbladder. Bilateral nonobstructive nephrolithiasis as
seen previously. Chronic urothelial thickening and hyperenhancement as seen previously, infection cannot be excluded. Post creation of ileal conduit. Post IVC filter placement. One leg of the filter is in contact with the duodenum as above, no clear
associated focal abnormal wall thickening at this level.
08/26/2025 chest x-ray 2 views: Lungs: The lungs are clear. Lung volumes are mildly decreased, unchanged. No pleural effusion or pneumothorax. Heart: Cardiac and mediastinal contours are unremarkable. Left chest wall port with catheter tip projecting
over the right atrium, unchanged. Osseous structures: No acute osseous abnormality. Upper thoracic posterior spinal fusion hardware is present, unchanged.
07/16/2025 CT abdomen/pelvis with and without IV contrast: No definitive acute abnormality is appreciated. Chronic bilateral renal atrophy with chronic bilateral urothelial thickening and enhancement with the wording right lower quadrant urostomy.
Acute superimposed urinary tract infection can't be excluded. Cholelithiasis; gallbladder is decompressed and contains several stones. Moderate amount of stool within the colon suggestive of constipation with mild chronic rectal wall thickening.
Short segment of concentric wall thickening within the ascending colon, likely reflect peristalsis. No free fluid within the abdomen or pelvis. Unchanged significant distention of the stomach with no suspicious wall thickening or evidence for outlet
obstruction.
06/22/2025 CT abdomen/pelvis without IV contrast: There is circumferential wall thickening along the distal esophagus which appears new from prior and may represent esophagitis. Right lower quadrant urostomy. There is unchanged mild hydronephrosis
with diffuse urothelial thickening which may be sequelae of prior ostomy, however superimposed infection is possible. Recommend correlation with urinalysis. There are numerous nonobstructing renal calculi bilaterally, similar to prior. Unchanged
marked gaseous distention of the stomach, possibly secondary to delayed gastric emptying/chronic outlet obstruction. Cholelithiasis.
03/26/2025 CT abdomen/pelvis with IV contrast: Included lung bases are predominantly clear. Marked gaseous distention of the stomach is noted, with air-fluid levels. Evaluation of the intestinal tract is limited without oral contrast, but does not
appear to have intestinal obstruction or free air. Gallstones are noted within the contracted gallbladder. No findings to suggest biliary tract dilatation. No focal adrenal enlargement. The right lower quadrant urinary diversion is seen in is
grossly nonobstructed. Liquid stool was seen in the rectum. Chronic deformity of both hips is stable. Absence of the lower sacrum and coccyx noted. Please see full dictation for additional detail. Film personally viewed
--- NOTE | 2025-08-29 09:53 | W.PN.GI.CBS2 ---
Today's Communication / Plan
-
continue bowel regimen
Assessment / Plan
-
plan:
continue suppository
miralax if pt agrees
PPI
hgb stable
no further recommendations, will sign off
Subjective
Subjective
Date of Service: August 29, 2025
Pt stable w/o GI complaints
Objective
Data Reviewed
Laboratory Data:
Laboratory Results
08/29/25 04:29
08/29/25 04:29
Laboratory Results
Total Bilirubin 1.1 mg/dl (0.2-1.3) 08/25/25 21:37
AST 17 U/L (17-59) 08/25/25 21:37
ALT 13 U/L (0-50) 08/25/25 21:37
Alkaline Phosphatase 76 U/L (38-126) 08/25/25 21:37
Vital Signs and I&O:
Vital Signs
Temp Pulse Resp BP Pulse Ox
98.2 F 83 16 103/65 95
08/29/25 07:30 08/29/25 07:30 08/29/25 07:30 08/29/25 07:30 08/29/25 07:30
I&O
08/28/25 08/29/25 08/30/25
06:59 06:59 06:59
Intake Total 3350 / 3350 1200 / 1200
Output Total 900 / 900 1300 / 1300
Balance 2450 / 2450 -100 / -100
Physical Exam
Physical Exam
GI: Soft and Non Distended
--- NOTE | 2025-08-29 12:37 | CM ---
Addendum entered by Renay Ruiz 08/29/25 14:56:
Patient is for [id number] to home by ambulance due to paraplegia.
Original Note:
Home no needs when stable.
Plan: Home no needs.
[2025-08-29] MEDS: REGLAN 10 MG PO ×2 (13:55→16:15)
--- NOTE | 2025-08-29 14:35 | W.DS.TRANS ---
Addendum entered and electronically signed by Elizabeth Brambila MD 08/29/25 16:24:
I saw and evaluated the patient. I reviewed the resident�s note and agree with findings and plan as documented in the resident�s note.
discussed taking doxycycline with food - avoiding divalent cations
Physical Exam
Constitutional: No Acute Distress
Cardiovascular: Regular Rate and S1/S2; Negative Murmur or Rub
Pulmonary: Clear and Symmetric; Negative Wheezes or Rales
Gastrointestinal: Soft, Non Tender, Non Distended and Normal Bowel Sounds
Skin: Warm and Dry; Negative Rash or Jaundice
Lines: Other (urostomy clear urine, port accessed and functional - no erythema, warmth, tenderness)
Labs: notably wbc 3.7, hgb 7.3, plt 109, L shift resolved Na 133, CO2 28, cr 0.8
urine culture polymicrobial
A&P
E coli Bacteremia
Probable UTI
Urostomy with neurogenic bladder
Chronic constipation
Paraplegia
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
Port
- suspect UTI vs translocation
- transition to doxycycyline - take with food for a 7 day total course 08/25-08/31
- if patient unable to tolerate doxycycline then I can set up a course of meropenem at home
AW
Original Note:
DC Summary - Rn Surgery [facility]
-
Discharge Instructions:
Discharge Diagnosis/Procedures Impression
Patient is a 45 years old male with T4
paraplegia, chronic urostomy and chronic
constipation who presents to emergency room
complaining of nausea, vomiting and fever.
Intractable nausea and vomiting.
Self-limited episode of hematemesis.
Suspect gastritis/esophagitis.
E. coli bacteremia with most likely source
complicated UTI in patient with urostomy
Acute on chronic metabolic acidosis with
elevated anion gap
Conditions prior to admission
T4 paraplegia.
Urostomy
History of complicated urinary tract infection
including ESBL pathogens
Chronic pain syndrome with opiate dependence
Chronic anemia.
CML.
Diet Regular
Instructions:
Stand-Alone Forms:
Changes to Home Medications: Yes
Discharge Medications:
DC Medications w/original date entered in [employer]
baclofen 20 mg tablet 20 mg PO DAILY Muscle Spasms 02/09/23
hydromorphone 4 mg tablet (Dilaudid) 4 mg PO Q8HPRN PRN severe pain 02/09/23
methadone 10 mg tablet 20 mg PO TID Pain 02/09/23
tizanidine 4 mg tablet 4 mg PO HS Muscle Spasms 01/31/24
metoclopramide HCl 10 mg tablet 10 mg PO AC Gastrointestinal Issue 07/23/24
bisacodyl 10 mg rectal suppository (Dulcolax (bisacodyl)) 10 mg KS SUWE Constipation 03/26/25
folic acid 1 mg tablet 1 mg PO DAILY Supplement 07/16/25
doxycycline hyclate 100 mg capsule 100 mg PO Q12 #28 caps 08/29/25
polyethylene glycol 3350 17 gram oral powder packet 17 g PO DAILY #30 ea 08/29/25
Home Medication Changes
Antibiotics for additional 2 weeks
Pending Results: No
[2025-08-29] MEDS: MERREM IV (15:08)
[2025-08-29] MEDS: STERILE WATER FOR INJECTION IV (15:09)
[2025-08-29 15:30] VITALS: BP 102/69
[2025-08-29] MEDS: VIBRAMYCIN 100 MG PO (16:39)
== END 2025-08-29 17:58 | disposition home or self-care (01) | DRG 690 ==
LOC: 4 WEST ACU 04:49
PROVIDERS: Nurse Practitioner Family; Student in an Organized Health Care Education/Training Program; ADMITTING PHYSICIAN Hospitalist; ATTENDING PHYSICIAN Internal Medicine; CONSULT PHYSICIAN Internal Medicine Gastroenterology; EMERGENCY PHYSICIAN Student in an Organized Health Care Education/Training Program; FAMILY PHYSICIAN Family Medicine; OTHER PHYSICIAN Student in an Organized Health Care Education/Training Program
DX: N39.0 Urinary tract infection, site not specified (principal); K92.2 Gastrointestinal hemorrhage, unspecified; G82.20 Paraplegia, unspecified; E87.20 Acidosis, unspecified; F11.20 Opioid dependence, uncomplicated; E86.0 Dehydration; I80.9 Phlebitis and thrombophlebitis of unspecified site; Z87.440 Personal history of urinary (tract) infections
CPT/HCPCS: 71046; 74177; 80048; 80053; 81003; 81015; 82533; 82728; 82962; 83540; 83550; 83605; 85014; 85018; 85025; 85027; 86850; 86900; 86901; 87040; 87077; 87086; 87154; 87186; 87205; 87502; 87811; 93005; 96374; 96375; 99285; Q9967